=== PATIENT | male | born 1955 | race Caucasian/White ===

== ENCOUNTER 2019-12-12 08:24 | Outpatient (CLI) | payer MEDICARE, SELFPAY ==
--- NOTE | ~2019-12-12 | CT_ITS ---
EXAMINATION: CT abdomen pelvis wo/w con DATE: 12/12/2019 09:18 INDICATION: Renal mass TECHNIQUE: Computed tomography (CT) of the abdomen was performed without intravenous contrast. CT of the abdomen and pelvis was then performed with a total of 100 mL Omnipaque 350 intravenous contrast. The dose-length product (DLP) was 2397.01 mGy-cm. Automated exposure control and iterative reconstruc tion technique were employed. COMPARISON: None FINDINGS: There are patchy opacities of the visualized lung bases. No pleural effusion is identified. The heart size is normal. The liver, spleen, pancreas, gallbladder, and adrenal glands are normal. A 7 mm low-attenuation lesion of the right mid kidney is too small to characterize but likely represen ts a cyst. No definite suspicious renal or urothelial lesion is identified. There is no hydroureteron ephrosis or hydroureter. No urolithiasis is noted. No pathologically enlarged abdominal or pelvic lym ph nodes are identified. Colonic diverticulosis is present without evidence of diverticulitis. There is no free intraperitoneal gas or evidence of bowel obstruction. There are surgical changes of right hemicolectomy. There are bilateral inguinal hernias containing fat. There is mild lumbar spondylosis. IMPRESSION: 1. No definite suspicious renal or urothelial lesion identified. 7 mm lesion of the right kidney is t oo small to characterize but likely represents a cyst. Reviewed, dictated and finalized at location A. IMPRESSION: 1. No definite suspicious renal or urothelial lesion identified. 7 mm lesion of the right kidney is too small to characterize but likely represents a cyst.
--- NOTE | ~2019-12-12 | XR_ITS ---
EXAMINATION: XR abdomen/kub 1V INDICATION: Renal mass TECHNIQUE: Supine views of the abdomen were obtained on 2 radiographs. COMPARISON: 03/01/2017 FINDINGS: The bowel gas pattern is normal. There is a moderate volume of colonic stool. Phleboliths a re noted in the pelvis. There is moderate bilateral hip osteoarthritis. No urolithiasis is identified . There are airspace opacities of the visualized lung bases. IMPRESSION: 1. Unremarkable abdominal radiographs. 2. Airspace opacities of the visualized lung bases, likely infectious or inflammatory. Reviewed, dictated and finalized at location A. IMPRESSION: 1. Unremarkable abdominal radiographs. 2. Airspace opacities of the visualized lung bases, likely infectious or inflam matory.
[2019-12-12 09:02] LABS: Estimated Glomerular Filt Rate > 60
== END 2019-12-12 08:25 | disposition home or self-care (01) ==
LOC: ANHIMG 08:32
PROVIDERS: PCP Internal Medicine; Visit Provider Urology
DX: N28.89 Other specified disorders of kidney and ureter (principal)
CPT/HCPCS: 74018; 74178; Q9967

== ENCOUNTER 2020-01-31 13:04 | Outpatient (CLI) | payer MEDICARE, SELFPAY ==
--- NOTE | ~2020-01-31 | US_ITS ---
EXAMINATION: US FNA w image guidance DATE: 01/31/2020 14:06 INDICATION: Nontoxic goiter TECHNIQUE: A time-out was performed to verify the patient's name, date of , and procedure to be performed . The procedure and its benefits and risks were discussed with the patient. Risks specifically discus sed included bleeding and infection. The patient understood the risks and agreed to proceed. The neck was prepped and draped in the usual sterile manner. 3 mL 1% lidocaine was used for local anesthesia . 6 passes were made with a 25G needle into the lesion. Appropriate needle location was documented with continuous sonographic guidance. The specimens were passed to the cytotechnologist/histotechnologist in the room. A sterile bandage was applied. There were no immediate complications. FINDINGS: Grayscale ultrasound images demonstrate a 2.8 x 1.7 by at least 2.7 cm hypoechoic mass in the mid to inferior right thyroid lobe. The caudal margin of the mass extends inferiorly into the superior media stinum is obscured by the right clavicle. Subsequent images demonstrate biopsy needle advanced into t he mass. IMPRESSION: 1. Successful ultrasound-guided fine needle aspiration of an at least 2.8 x 1.7 x 2.7 cm. TI RADS 4 right thyroid mass. Reviewed, dictated and finalized at location A. IMPRESSION: 1. Successful ultrasound-guided fine needle aspiration of an at least 2.8 x 1. 7 x 2.7 cm. TI RADS 4 right thyroid mass.
== END 2020-01-31 13:05 | disposition home or self-care (01) ==
PROVIDERS: PCP Internal Medicine; Visit Provider Internal Medicine
DX: E04.9 Nontoxic goiter, unspecified (principal)
CPT/HCPCS: 10005; 88173; 88305

== ENCOUNTER 2021-11-24 00:54 | Day surgery (SDC) | payer MEDICARE, SELFPAY ==
[2021-11-11 14:25] VITALS: BMI 42.1
--- NOTE | 2021-11-11 14:38 | PC.NURSE ---
Pt instructed not to take magnesium citrate as part of his colon prep. He verbalized understanding.
[2021-11-24 12:00] VITALS: BP 132/67; PULSE 50; RESP 18; TEMP 36.2; O2SAT 99; BMI 42.0
--- NOTE | 2021-11-24 12:13 | PM.HPGS ---
History of Present Illness History of Present Illness Consent: Risks, benefits, and alternatives have been discussed and questions answered. Patient agrees to proceed with procedure. Chief complaint: history of colon polyps Narrative: Julio Cesar Sterling is a 66 year old male Referred for colon cancer screening. He had a large polyp identified in his colon 5 years ago and subsequently underwent right colectomy because of the large polyp. Review of Systems Review of Systems: All systems reviewed & are unremarkable except as noted in HPI and below PMFSH Past Medical History Medical History Asthma Hyperlipidemia JOCELYNE (obstructive sleep apnea) Social History Social History Smoking status: Never smoker Tobacco type: cigarettes Alcohol intake: former Substance use type: does not use Living arrangements: with family Spiritual care concerns: No Meds Home Medications and Allergies Home Medications Medication Instructions Recorded Confirmed Type albuterol sulfate 90 mcg/actuation 2 inh inhalation Q4-6H PRN 11/11/21 11/11/21 History aerosol inhaler Shortness Of Breath metformin 500 mg tablet 500 mg PO DAILY 11/11/21 11/11/21 History rosuvastatin 5 mg tablet 5 mg PO DAILY 11/11/21 11/11/21 History sertraline 100 mg tablet 100 mg PO DAILY 11/11/21 11/11/21 History Allergies Allergy/AdvReac Type Severity Reaction Status Date / Time No Known Allergies Allergy Severe NONE Verified 11/24/21 12:13 Exam Const: General: alert Orientation/consciousness: patient oriented x3 Resp: Auscultation: clear to auscultation bilaterally Cardio: Rhythm: regular rhythm GI: GI Palp: Yes Soft to palpation and No Tenderness to palpation present (GI) Neuro: General: patient oriented x3 Assessment and Plan Assessment and plan (1) Colon cancer screening: Code(s): Z12.11 - Encounter for screening for malignant neoplasm of colon Status: Acute Assessment and Plan: Colonoscopy with possible biopsy or polypectomy or cautery or injection of substances.
--- NOTE | 2021-11-24 12:17 | WPDANESEPPF ---
Anes - Initial Pre Proc Eval Procedure: Operation Date: 11/24/21 13:30 Proposed Procedures p Screening Colonoscopy - Santos Russo MD Date/Time: 11/24/21 12:17 Surgeon: Santos Russo MD Pre Op Diagnosis: history of colon polyps Patient Data Age: 66 Gender: M Height: 1.7 m Weight: 121.7 kg Last Vital Signs Temp 36.2 C L 11/24/21 12:00 Pulse 50 L 11/24/21 12:00 Resp 18 11/24/21 12:00 BP 132/67 11/24/21 12:00 Pulse Ox 99 11/24/21 12:00 O2 Del Method Room Air 11/24/21 12:00 Allergies Allergy/AdvReac Type Severity Reaction Status Date / Time No Known Allergies Allergy Severe NONE Verified 11/24/21 12:13 Home Medications Medication Instructions Recorded Confirmed Type albuterol sulfate 90 mcg/actuation 2 inh inhalation Q4-6H PRN 11/11/21 11/24/21 History aerosol inhaler Shortness Of Breath metformin 500 mg tablet 500 mg PO DAILY 11/11/21 11/24/21 History rosuvastatin 5 mg tablet 5 mg PO DAILY 11/11/21 11/24/21 History sertraline 100 mg tablet 100 mg PO DAILY 11/11/21 11/24/21 History Patient hx anesthesia problems: none Family hx anesthesia problems: none Results Review: All pre-operative results and documents have been reviewed as part of the pre-operative evaluation. [facility], [facility] Past Medical History Medical History (Updated 11/24/21 @ 12:18 by Hiren Painter DO) Asthma Hyperlipidemia JOCELYNE (obstructive sleep apnea) Social History Social History Smoking status: Never smoker Tobacco type: cigarettes Alcohol intake: former Substance use type: does not use Living arrangements: with family Spiritual care concerns: No Anes - Eval Final PreProcedure Day of Procedure 11/24/21 12:17 Patient weight: morbidly obese Heart: regular rate and rhythm Lungs: clear to auscultation Airway: Mallampati scale class II Neurological: alert and oriented Last oral intake: >/= 8 hours ASA classification: III Emergent: no Anesthetic plan: proceed Anesthesia type and monitoring: general GIVS and standard monitoring Results Review: All pre-operative results and documents have been reviewed as part of the pre-operative evaluation. Informed Consent: The patient's anesthetic plan and its attendant risks and benefits were discussed with the patient/family/POA. Questions were solicited and answers provided to the satisfaction of the patient/family/POA.
[2021-11-24] MEDS: LACTATED RINGERS 1,000 ML 150 ML IV CONT (12:28)
[2021-11-24 12:30] LABS: Glucose Point of Care 104 mg/dl (65-105)
[2021-11-24 12:43] VITALS: BP 84/38; PULSE 54; RESP 20; O2SAT 98
[2021-11-24 12:53] VITALS: BP 84/32; PULSE 50; RESP 19; O2SAT 98
[2021-11-24 13:03] VITALS: BP 111/45; PULSE 54; RESP 20; O2SAT 100
== END 2021-11-24 13:10 | disposition home or self-care (01) ==
PROVIDERS: PCP Internal Medicine; Visit Provider Internal Medicine Gastroenterology
PROC: 0DJD8ZZ Inspection of Lower Intestinal Tract, Via Natural or Artificial Opening Endoscopic (ICD-10-PCS; CPT 45378; principal; 2021-11-24 13:30)
DX: Z12.11 Encounter for screening for malignant neoplasm of colon (principal); K57.30 Diverticulosis of large intestine without perforation or abscess without bleeding; Z98.0 Intestinal bypass and anastomosis status; Z86.010 Personal history of colon polyps; Z90.49 Acquired absence of other specified parts of digestive tract; E78.5 Hyperlipidemia, unspecified; J45.909 Unspecified asthma, uncomplicated; G47.33 Obstructive sleep apnea (adult) (pediatric); Z79.84 Long term (current) use of oral hypoglycemic drugs; Z79.51 Long term (current) use of inhaled steroids; E66.01 Morbid (severe) obesity due to excess calories; Z68.41 Body mass index [BMI] 40.0-44.9, adult
CPT/HCPCS: G0105; 82948; J2704; J7120

== ENCOUNTER 2024-05-11 01:05 | Day surgery (SDC) | payer MEDICARE, SELFPAY ==
[2024-05-03 14:22] VITALS: BMI 44.8
--- OUTSIDE RECORDS SUMMARY | 2024-05-11 01:08 | XMS_ITS | Data Portability ---
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 Name Role Phone JENNIFER PEREZ Primary Care Provider JENNIFER PEREZ Referring Provider Assessment Encounter Date Assessment Date Assessment LastModified by Organization Details LastModified Time 06/29/2022 06/29/2022 Follow-up 3 months could Not available 06/29/2022 20:50:01 08/10/2022 08/10/2022 Assessment: Very severe OSAHS, AHI = 47 Iron deficiency Vit B12 deficiency Vit E deficiency Plan: The following were reviewed and explained to the patient: primary care/referral note [facility] split night sleep study 11/19/20 AHI = 47, [employer] medium Vitera full face mask @ 13 cmH2O, PLMI = 24 Ferritin 10/15/21 38 ng/mL Ferritin 08/05/22 39 ng/mL B12 10/15/21 380 pg/mL B12 08/05/22 446 pg/mL Alpha tocopherol 10/15/21 5.4 mg/L Alpha tocopherol 08/05/22 9.5 mg/L Gamma tocopherol 10/15/21 1.5 mg/L Gamma tocopherol 08/05/22 0.7 mg/L Elevation in periodic limb movement index may be contributed by sertraline. Non-pharmacologic therapy options for periodic limb movement disorder include avoidance of aggravating drugs and substances, mental alerting activities, short daily hemodialysis for patients in renal failure, exercise, leg massage, stretching calf muscles, use of a weighted blanket and applied heat. Patient will cut down on alcohol consumption and caffeine intake. BUN, Creatinine, RBC folate, Iron, TIBC, ESR, Magnesium, Hgb and Hct levels are within normal limits. Patient will take Vitamin E 200 IU/day to keep the alpha tocopherol > 9.0 mg/L and the gamma tocopherol > 0.5 mg/L. Patient will continue FeSO4 325 mg + Vit C 500 mg daily to keep the ferritin > 75 ng/ml. Patient will continue B12 1 mg daily to keep the levels > 400 pg/ml. Patient will continue Vitamin E 200 IU/day to keep the alpha tocopherol > 7.0 mg/L and the gamma tocopherol > 0.5 mg/L. Check vitamin E, B12 and ferritin one week before return. We will hold off on dopaminergic therapy for now. PAP compliance downloaded and interpreted x 20 minutes. Data reviewed and explained to the patient. Average apnea/hypopnea index (AHI) is 2.0. Patient used PAP > 4 hours 100% of the time. PAP is set at 13 cmH2O. PAP will remain at 13 cmH2O. Oxygen supplementation: none Patient is benefiting from PAP therapy. Encouraged patient to maintain PAP use more than 70% of the time. Statement of PAP use and benefits will be sent to the home care store. Educated the patient on problems and solutions associated with positive airway pressure (PAP) use. Difficulty tolerating pressure, mask leaks, intolerance of interface, nasal congestion, claustrophobic response, dry mouth, and unintentional mask removal during sleep were covered. Provided the patient with a list of local home care stores where positive airway pressure (PAP) units, accouterments, and services are available. Home care store selection is based on patient's insurance carrier. Patient will setup an appointment with [facility] for supplies and pressure adjustments. A major predictor of success with use of PAP is follow-up with both the respiratory supplier and the treating physician. To help assess adherence, a downloadable card/chip is ordered with the PAP equipment. The card/chip will be downloaded by the respiratory supplier and sent to the treating physician. The download results can show the treating physician information about adherence to treatment, residual AHI while on treatment and presence of large mask leakage. This information is especially helpful if the patient has residual sleepiness despite treatment. General information on sleep disorder breathing, evaluation of sleep disordered breathing, treatment with PAP therapy, and living with PAP therapy were covered. We discussed with the patient the impact of weight on: Sleep disordered breathing Mixed hyperlipidemia DM Low back pain We discussed with the patient the benefit of PAP therapy on: Sleep disordered breathing Mood disorder Rhinitis DM Educated the patient on sleep hygiene measures. Relaxing rituals to rest easy, understanding foods with positive and negative impact on sleep, creating a peaceful sleep environment, timing of exercise, using herbal sleep aids, and practicing sleep-friendly meditation were covered. To determine how much sleep is needed, the patient will assess where he falls on the spectrum, examine what lifestyle factors such as work schedules and stress are affecting the quality and quantity of sleep. In general, adults need 7-9 hours of sleep. Educated the patient regarding foods that promote sleep. These include but are not limited to cherries, bananas, toast, oatmeal, and warm milk. Educated the patient regarding foods and drinks to avoid before bedtime. These include but are not limited to aged cheese, chocolate, spicy foods, tomato-based sauces, soy, ginseng tea and processed meat. Advocated influenza vaccination annually and pneumonia vaccination OTIS. Advocated weight loss through diet and exercise. Patient's ideal body weight according to height and gender is up to 160 lbs. Encouraged patient to adjust caloric intake to maintain/achieve ideal body weight, emphasizing on fruits, vegetables, whole grains, and fat-free or low-fat products. These include lean meats, poultry, fish, beans, eggs, and nuts and foods that are low in saturated fats, trans-fats, cholesterol, salt (sodium), and glycemic index. Stressed the importance of regular exercise up to the patient's capacity limits. In this case, we recommend 20 min daily walking, 2 days a week of resistance training. Patient to monitor BP daily and bring records to PCP for further management. Follow-up: 6 months, February 2023 [email or web address] Not available 08/10/2022 17:29:25 10/05/2022 10/05/2022 Wellness concluded screenings and immunizations orders were patient Blood work ordered Weight reduction Follow-up 4 months Not available 10/06/2022 08:36:33 02/01/2023 02/01/2023 Continue current therapy follow-up 4 months blood work ordered Not available 02/01/2023 20:57:39 02/23/2023 02/23/2023 Assessment: Very severe OSAHS, AHI = 47 Iron deficiency Vit B12 deficiency Vit E deficiency Plan: The following were reviewed and explained to the patient: [facility] split night sleep study 11/19/20 AHI = 47, [employer] medium Vitera full face mask @ 13 cmH2O, PLMI = 24 Ferritin 10/15/21 38 ng/mL Ferritin 08/05/22 39 ng/mL Ferritin 02/11/23 55 ng/mL B12 10/15/21 380 pg/mL B12 08/05/22 446 pg/mL B12 02/11/23 440 pg/mL Alpha tocopherol 10/15/21 5.4 mg/L Alpha tocopherol 08/05/22 9.5 mg/L Alpha tocopherol 02/11/23 6.1 mg/L Gamma tocopherol 10/15/21 1.5 mg/L Gamma tocopherol 08/05/22 0.7 mg/L Gamma tocopherol 02/11/23 0.9 mg/L Elevation in periodic limb movement index may be contributed by sertraline. Non-pharmacologic therapy options for periodic limb movement disorder include avoidance of aggravating drugs and substances, mental alerting activities, short daily hemodialysis for patients in renal failure, exercise, leg massage, stretching calf muscles, use of a weighted blanket and applied heat. Patient will cut down on alcohol consumption and caffeine intake. BUN, Creatinine, RBC folate, Iron, TIBC, ESR, Magnesium, Hgb and Hct levels are within normal limits. Patient will continue Vitamin E 200 IU/day to keep the alpha tocopherol > 9.0 mg/L and the gamma tocopherol > 0.5 mg/L. Patient will continue FeSO4 325 mg + Vit C 500 mg daily to keep the ferritin > 75 ng/ml. Patient will continue B12 1 mg daily to keep the levels > 400 pg/ml. Patient will continue Vitamin E 200 IU/day to keep the alpha tocopherol > 7.0 mg/L and the gamma tocopherol > 0.5 mg/L. Check vitamin E, B12 and ferritin one week before return. We will hold off on dopaminergic therapy for now. PAP compliance downloaded and interpreted x 20 minutes. Data reviewed and explained to the patient. Average apnea/hypopnea index (AHI) is 2.2. Patient used PAP > 4 hours 98% of the time. PAP is set at 13 cmH2O. PAP will remain at 13 cmH2O. Oxygen supplementation: none Patient is benefiting from PAP therapy. Encouraged patient to maintain PAP use more than 70% of the time. Statement of PAP use and benefits will be sent to the home care store. Educated the patient on problems and solutions associated with positive airway pressure (PAP) use. Difficulty tolerating pressure, mask leaks, intolerance of interface, nasal congestion, claustrophobic response, dry mouth, and unintentional mask removal during sleep were covered. Provided the patient with a list of local home care stores where positive airway pressure (PAP) units, accouterments, and services are available. Home care store selection is based on patient's insurance carrier. Patient will setup an appointment with [facility] for supplies and pressure adjustments. A major predictor of success with use of PAP is follow-up with both the respiratory supplier and the treating physician. To help assess adherence, a downloadable card/chip is ordered with the PAP equipment. The card/chip will be downloaded by the respiratory supplier and sent to the treating physician. The download results can show the treating physician information about adherence to treatment, residual AHI while on treatment and presence of large mask leakage. This information is especially helpful if the patient has residual sleepiness despite treatment. General information on sleep disorder breathing, evaluation of sleep disordered breathing, treatment with PAP therapy, and living with PAP therapy were covered. We discussed with the patient the impact of weight on: Sleep disordered breathing Mixed hyperlipidemia DM Low back pain We discussed with the patient the benefit of PAP therapy on: Sleep disordered breathing Mood disorder Rhinitis DM Educated the patient on sleep hygiene measures. Relaxing rituals to rest easy, understanding foods with positive and negative impact on sleep, creating a peaceful sleep environment, timing of exercise, using herbal sleep aids, and practicing sleep-friendly meditation were covered. To determine how much sleep is needed, the patient will assess where he falls on the spectrum, examine what lifestyle factors such as work schedules and stress are affecting the quality and quantity of sleep. In general, adults need 7-9 hours of sleep. Educated the patient regarding foods that promote sleep. These include but are not limited to cherries, bananas, toast, oatmeal, and warm milk. Educated the patient regarding foods and drinks to avoid before bedtime. These include but are not limited to aged cheese, chocolate, spicy foods, tomato-based sauces, soy, ginseng tea and processed meat. Advocated influenza vaccination annually and pneumonia vaccination OTIS. Advocated weight loss through diet and exercise. Patient's ideal body weight according to height and gender is up to 160 lbs. Encouraged patient to adjust caloric intake to maintain/achieve ideal body weight, emphasizing on fruits, vegetables, whole grains, and fat-free or low-fat products. These include lean meats, poultry, fish, beans, eggs, and nuts and foods that are low in saturated fats, trans-fats, cholesterol, salt (sodium), and glycemic index. Stressed the importance of regular exercise up to the patient's capacity limits. In this case, we recommend 20 min daily walking, 2 days a week of resistance training. Patient to monitor BP daily and bring records to PCP for further management. Follow-up: 6 months, August 2023 [facility] Not available 02/23/2023 15:22:34 Plan of Treatment Reminders Order Date Submit Date Provider Last Modified By Organization Details Last Modified Time Details Appointments None recorded. Lab vitamin B12, serum [address] (Lab), [address] [place], [address], 12:54:44 ferritin, serum or plasma [address] (Lab), [address] [place], [address], 12:54:44 vitamin E, serum [address] (Lab), [address] [place], [address], 12:54:44 CMP, serum or plasma 2022 023 [facility] (Lab), [address] [place], [address], 19:06:51 lipid panel, serum 2022 023 [facility] (Lab), [address] [place], [address], 19:06:58 glycohemogl obin, total, blood 2022 023 [facility] (Lab), [address] [place], [address], 3 19:48:41 vitamin B12, serum 2022 024 [email or web address] 25 [facility] (Lab), [address] [place], [address], 4 14:27:05 ferritin, serum or plasma 2022 024 [email or web address] 25 [facility] (Lab), [address] [place], [address], 4 14:27:05 vitamin E, serum 2022 024 [email or web address] 25 [facility] (Lab), [address] [place], [address], 4 14:27:05 Referral None recorded. Procedures None recorded. Surgeries None recorded. Imaging None recorded. Medication Orders cyanocobala min (vit B-12) 1,000 mcg tablet 2022 023 [facility] #[id number], [address], [place], [place], [id number], 3 12:09:14 ferrous sulfate 325 mg (65 mg iron) tablet 2022 023 [facility] #[id number], [address], [place], [place], [id number], 3 12:09:17 Vitamin C 500 mg tablet 2022 023 [facility] #[id number], [address], [place], [place], [id number], 3 12:09:15 vitamin E mixed 200 unit tablet 2022 023 [facility] #[id number], [address], [place], [place], [id number], 3 12:09:13 cyanocobala min (vit B-12) 1,000 mcg tablet 2022 023 [email or web address] [facility] #[id number], [address], [place], [place], [id number], 3 15:18:29 ferrous sulfate 325 mg (65 mg iron) tablet 2022 023 [facility] #18489, [address], [place], [place], [id number], 3 15:18:23 Vitamin C 500 mg tablet 2022 023 [facility] #61879, [address], [place], [place], [id number], 3 15:18:27 vitamin E 200 unit capsule 2022 023 [facility] #[id number], [address], [place], [place], [id number], 3 15:18:27 Patient TargetsNo targets recorded. Patient Instructions Encounter Date Encounter Id Patient Instructions Last Modified By Organization Details Last Modified Time 10/05/2022 [id number] dementia rating scale-2* [email or web address] Not available 10/06/2022 08:36:54 alcohol misuse* [email or web address] Not available 10/06/2022 08:36:54 depression screening* [email or web address] Not available 10/06/2022 08:36:53 multi-dimensiona l health assessment questionnaire* [email or web address] Not available 10/06/2022 08:36:54 advance care planning: care instructions Not available 10/06/2022 08:36:53 advance directiv es: care instructions [email or web address] Not available 10/06/2022 08:36:54 [place] Advance Directives [email or web address] Not available 10/06/2022 08:36:54 Personalized Hea lt Plan and Screening Recommendations Advance Directives - Do you have one? Advance Directives - Do we have your advance directive on file in your health record? Primary Prevention/Interven tion (prevents or decreases the chance of common diseases from occurring) Smoking Risk: Non Smoker Alcohol Misuse Screening: Negative Weight: Appropriate Overwei ght continue your current weight loss efforts try to lose 5% of your body weight try to lose 10% of your body weight Physical activity: Nutrition: Good Average Fall Risk (screened today): Low Vaccines Pneumococcal: Ordered Recommended today Influenza: Chronic Disease Risks Stroke: Low Risk Intermediate Risk I have no recommendations Act nimisha diagnosis, Continue current treatment plan Heart Attack: Low risk Intermediate Risk I have no recommendations Act nimisha diagnosis, Continue current treatment plan Clogging of the Arteries: Low risk Intermediate Risk I have no recommendations Act nimisha diagnosis, Continue current treatment plan Diabetes: Low Risk Intermediate Risk Secondary Prevention/Interven tion (detects treatable diseases before they may cause symptoms, disability, or ) Prostate Cancer Screening: Colon Cancer Screening: Colonoscopy Date Screening Last Performed: _2021 Eye Disease Screening: Dementia Risk: Low I have no recommendations Depression Screening: Negative Not available 10/05/2022 14:48:13 Reason for Referral None Reported. Results Created Date Observation Date Name Description Value Unit Range Abnormal Flag Note LastModifiedBy Organization Detail LastModifiedTime 10/06/1910/05/2022 CBC/C OMPLE TE BLD COUNT W/DIF F white blood cells 3.9 x10'3 /uL 4.2-10 .8 low Not Available [facility] (Lab) [address] [place], [address], 10/05/2022 18:35:59 10/06/1910/05/2022 CBC/C OMPLE TE BLD COUNT W/DIF F red blood cells 4.40 x10'6 /uL 4.10-5 .80 Not Available [facility] (Lab) [address] [place], [address], 10/05/2022 18:35:59 10/06/19 23 10/05/2022 CBC/C OMPLE TE BLD COUNT W/DIF F hemoglobin 14.5 g/dL 13.2-1 7.0 Not Available [facility] (Lab) [address] [place], [address], 10/05/2022 18:35:59 10/06/19 23 10/05/2022 CBC/C OMPLE TE BLD COUNT W/DIF F hematocrit 44.3 % 39.3-5 0.0 Not Available [facility] (Lab) [address] [place], [address], 10/05/2022 18:35:59 10/06/19 23 10/05/2022 CBC/C OMPLE TE BLD COUNT W/DIF F mean red cell volume 100.7 fL 80.0-9 7.0 high Not Available [facility] (Lab) [address] [place], [address], 10/05/2022 18:35:59 10/06/19 23 10/05/2022 CBC/C OMPLE TE BLD COUNT W/DIF F mean red cell hemoglobin 33.0 pg 27.0-3 3.0 Not Available [facility] (Lab) [address] [place], [address], 10/05/2022 18:35:59 10/06/19 23 10/05/2022 CBC/C OMPLE TE BLD COUNT W/DIF F mean RBC HGB concentratio n 32.7 g/dL 31.0-3 6.0 Not Available [facility] (Lab) [address] [place], [address], 10/05/2022 18:35:59 10/06/19 23 10/05/2022 CBC/C OMPLE TE BLD COUNT W/DIF F red cell distribution width 12.4 % 11.8-1 5.5 Not Available [facility] (Lab) [address] [place], [address], 10/05/2022 18:35:59 10/06/19 23 10/05/2022 CBC/C OMPLE TE BLD COUNT W/DIF F platelets 185 x10'3 /uL 150-40 0 Not Available [facility] (Lab) [address] [place], [address], 10/05/2022 18:35:59 10/06/19 23 10/05/2022 CBC/C OMPLE TE BLD COUNT W/DIF F mean platelet volume 10.2 fL 9.0-12 .4 Not Available [facility] (Lab) [address] [place], [address], 10/05/2022 18:35:59 10/06/19 23 10/05/2022 CBC/C OMPLE TE BLD COUNT W/DIF F neutrophils 67.9 % 39.0-7 2.0 Not Available [facility] (Lab) [address] [place], [address], 10/05/2022 18:35:59 10/06/19 23 10/05/2022 CBC/C OMPLE TE BLD COUNT W/DIF F lymphocytes 22.2 % 16.0-4 7.0 Not Available [facility] (Lab) [address] [place], [address], 10/05/2022 18:35:59 10/06/19 23 10/05/2022 CBC/C OMPLE TE BLD COUNT W/DIF F monocytes 7.5 % 5.0-12 .0 Not Available [facility] (Lab) [address] [place], [address], 10/05/2022 18:35:59 10/06/1910/05/2022 CBC/C OMPLE TE BLD COUNT W/DIF F eosinophils 1.6 % 1.0-7. 0 Not Available [facility] (Lab) [address] [place], [address], 10/05/2022 18:35:59 10/06/19 23 10/05/2022 CBC/C OMPLE TE BLD COUNT W/DIF F basophils 0.5 % 0.0-2. 0 Not Available [facility] (Lab) [address] [place], [address], 10/05/2022 18:35:59 10/06/19 23 10/05/2022 CBC/C OMPLE TE BLD COUNT W/DIF F immature granulocytes 0.3 % 0.00-0 .50 Not Available [facility] (Lab) [address] [place], [address], 10/05/2022 18:35:59 10/06/19 23 10/05/2022 CBC/C OMPLE TE BLD COUNT W/DIF F neutrophils, absolute count 2.63 x10'3 /uL 1.5-8. 0 Not Available [facility] (Lab) [address] [place], [address], 10/05/2022 18:35:59 10/06/19 23 10/05/2022 CBC/C OMPLE TE BLD COUNT W/DIF F lymphocytes, absolute count 0.86 x10'3 /uL 1.07-3 .43 low Not Available [facility] (Lab) [address] [place], [address], 10/05/2022 18:35:59 10/06/1910/05/2022 CBC/C OMPLE TE BLD COUNT W/DIF F monocytes, absolute count 0.29 x10'3 /uL 0.29-0 .99 Not Available [facility] (Lab) [address] [place], [address], 10/05/2022 18:35:59 10/06/19 23 10/05/2022 CBC/C OMPLE TE BLD COUNT W/DIF F eosinophils, absolute count 0.06 x10'3 /uL 0.02-0 .53 Not Available [facility] (Lab) [address] [place], [address], 10/05/2022 18:35:59 10/06/19 23 10/05/2022 CBC/C OMPLE TE BLD COUNT W/DIF F basophils, absolute count 0.02 x10'3 /uL 0.01-0 .08 Not Available [facility] (Lab) [address] [place], [address], 10/05/2022 18:35:59 10/06/19 23 10/05/2022 CBC/C OMPLE TE BLD COUNT W/DIF F immature granulocytes ,absolute 0.01 x10'3 /uL 0.00-0 .05 Not Available [facility] (Lab) [address] [place], [address], 10/05/2022 18:35:59 10/06/19 23 10/05/2022 CBC/C OMPLE TE BLD COUNT W/DIF F nucleated red blood cells 0.0 % -0 Not Available [facility] (Lab) [address] [place], [address], 10/05/2022 18:35:59 10/06/19 23 10/05/2022 CBC/C OMPLE TE BLD COUNT W/DIF F NRBC# 0.00 x10'3 /uL Not Available [facility] (Lab) [address] [place], [address], 10/05/2022 18:35:59 10/06/19 23 10/05/2022 COMPR EHENS NIMISHA METAB OLIC PANEL sodium 144 mmol/ L 137-14 5 Not Available [facility] (Lab) [address] [place], [address], 10/05/2022 18:43:28 10/06/19 23 10/05/2022 COMPR EHENS NIMISHA METAB OLIC PANEL potassium 4.1 mmol/ L 3.5-5. 1 Not Available [facility] (Lab) [address] [place], [address], 10/05/2022 18:43:28 10/06/19 23 10/05/2022 COMPR EHENS NIMISHA METAB OLIC PANEL chloride 107 mmol/ L 98-107 Not Available [facility] (Lab) [address] [place], [address], 10/05/2022 18:43:28 10/06/19 23 10/05/2022 COMPR EHENS NIMISHA METAB OLIC PANEL carbon dioxide 27 mmol/ L 22-30 Not Available [facility] (Lab) [address] [place], [address], 10/05/2022 18:43:28 10/06/19 23 10/05/2022 COMPR EHENS NIMISHA METAB OLIC PANEL anion gap 14.1 mmol/ L 14-22 Not Available [facility] (Lab) [address] [place], [address], 10/05/2022 18:43:28 10/06/19 23 10/05/2022 COMPR EHENS NIMISHA METAB OLIC PANEL glucose 132 mg/dL 70-99 high Not Available [facility] (Lab) [address] [place], [address], 10/05/2022 18:43:28 10/06/19 23 10/05/2022 COMPR EHENS NIMISHA METAB OLIC PANEL BUN 13 mg/dL 8-19 Not Available [facility] (Lab) [address] [place], [address], 10/05/2022 18:43:28 10/06/19 23 10/05/2022 COMPR EHENS NIMISHA METAB OLIC PANEL creatinine 0.60 mg/dL 0.66-1 .25 low Not Available [facility] (Lab) [address] [place], [address], 10/05/2022 18:43:28 10/06/19 23 10/05/2022 COMPR EHENS NIMISHA METAB OLIC PANEL GFR >60 Refer ence Range : [place] ge GFR Healt hy Adult : >60 mL/mi n/1.7 3 m2 Chron ic Kidne y Disea se: 15-60 mL/mi n/1.7 3 m2 Kidne y Failu re: <15/m L/min /1.73 m2 www.n iddk. [facility].g ov The MDRD study equat ion has not been valid ated in child robina <18 years of age; pregn ant women ; the elder ly >85 years of age; or in some racia l or ethni c subgr oups, such as Hispa nics. Outsi de the valid ated chalino eters , estim ated GFR is less accur ate, requi ring clini arjun judgm ent on a case- by-ca se basis . Clini arjun inter preta tion for other races and ages must be made by the clini conner. The MDRD study equat ion has not been valid ated for the evalu ation of serum creat inine relat ed to nutri steph l statu s or medic ation usage . For perso ns <18 years of age, a pedia tric GFR calcu lator is avail able on the [facility] websi te: https :[email or web address] [email or web address].agustin [email or web address] larissa/pr tyreeess ional s/kdo qi/gf r_cal culat or Not Available [facility] (Lab) [address] [place], [address], 10/05/2022 18:43:28 10/06/1910/05/2022 COMPR EHENS NIMISHA METAB OLIC PANEL alkaline phosphatase 70 U/L 38-126 Not Available [facility] (Lab) [address] [place], [address], 10/05/2022 18:43:28 10/06/1910/05/2022 COMPR EHENS NIMISHA METAB OLIC PANEL alanine aminotransfe rase 27 U/L 0-50 Not Available [facility] (Lab) [address] [place], [address], 10/05/2022 18:43:28 10/06/19 23 10/05/2022 COMPR EHENS NIIMSHA METAB OLIC PANEL aspartate aminotransfe rase 30 U/L 15-46 Not Available [facility] (Lab) [address] [place], [address], 10/05/2022 18:43:28 10/06/19 23 10/05/2022 COMPR EHENS NIMISHA METAB OLIC PANEL bilirubin, total 0.50 mg/dL 0.20-1 .30 Not Available [facility] (Lab) [address] [place], [address], 10/05/2022 18:43:28 10/06/19 23 10/05/2022 COMPR EHENS NIMISHA METAB OLIC PANEL calcium 8.9 mg/dL 8.4-10 .2 Not Available [facility] (Lab) [address] [place], [address], 10/05/2022 18:43:28 10/06/19 23 10/05/2022 COMPR EHENS NIMISHA METAB OLIC PANEL total protein 6.1 g/dL 6.3-8. 2 low Not Available [facility] (Lab) [address] [place], [address], 10/05/2022 18:43:28 10/06/19 23 10/05/2022 COMPR EHENS NIMISHA METAB OLIC PANEL albumin 3.3 g/dL 3.0-4. 4 Not Available [facility] (Lab) [address] [place], [address], 10/05/2022 18:43:28 10/06/19 23 10/05/2022 COMPR EHENS NIMISHA METAB OLIC PANEL globulin 2.8 g/dL 2.6-4. 2 Not Available [facility] (Lab) [address] [place], [address], 10/05/2022 18:43:28 10/06/19 23 10/05/2022 COMPR EHENS NIMISHA METAB OLIC PANEL A/G ratio 1.2 ratio 1.0-2. 0 Not Available [facility] (Lab) [address] [place], [address], 10/05/2022 18:43:28 10/06/19 23 10/05/2022 PSA SCREE N PSA medicare screen 1.16 NG/mL 0.00-4 .00 Not Available [facility] (Lab) [address] [place], [address], 10/05/2022 19:05:30 10/06/19 23 10/05/2022 BNP/B -NATR IURET IC PEPTI DE BNP 130 pg/mL 4-125 high Not Available [facility] (Lab) [address] [place], [address], 10/05/2022 19:07:26 10/06/19 23 10/05/2022 HEMOG LOBIN A1C HA1C 6.1 % 4.0-6. 0 high Diabe nghia Scree paul Crite gloria: <5.7% Consi stent with absen ce of diabe nghia 5.7-6 .4% Consi stent with incre ased risk for diabe nghia (pred iabet es) >OR=6 .5% Consi stent with diabe nghia REFER ENCE: Diabe nghia Care 2016, 39(Tomas ppl.1 ):s13 -s22 Not Available [facility] (Lab) [address] [place], [address], 10/05/2022 20:04:41 02/03/20 23 02/02/2023 COMPR EHENS NIMISHA METAB OLIC PANEL sodium 140 mmol/ L 137-14 5 Not Available [facility] (Lab) [address] [place], [address], 02/02/2023 19:06:51 1002/02/2023 COMPR EHENS NIMISHA METAB OLIC PANEL potassium 4.1 mmol/ L 3.5-5. 1 Not Available [facility] (Lab) [address] [place], [address], 02/02/2023 19:06:51 02/03/20 23 02/02/2023 COMPR EHENS NIMISHA METAB OLIC PANEL chloride 106 mmol/ L 98-107 Not Available [facility] (Lab) [address] [place], [address], 02/02/2023 19:06:51 02/03/20 23 02/02/2023 COMPR EHENS NIMISHA METAB OLIC PANEL carbon dioxide 31 mmol/ L 22-30 high Not Available [facility] (Lab) [address] [place], [address], 02/02/2023 19:06:51 02/03/20 23 02/02/2023 COMPR EHENS NIMISHA METAB OLIC PANEL anion gap 7.1 mmol/ L 14-22 low Not Available [facility] (Lab) [address] [place], [address], 02/02/2023 19:06:51 02/03/20 23 02/02/2023 COMPR EHENS NIMISHA METAB OLIC PANEL glucose 137 mg/dL 70-99 high Not Available [facility] (Lab) [address] [place], [address], 02/02/2023 19:06:51 02/03/20 23 02/02/2023 COMPR EHENS NIMISHA METAB OLIC PANEL BUN 16 mg/dL 8-19 Not Available [facility] (Lab) [address] [place], [address], 02/02/2023 19:06:51 02/03/20 23 02/02/2023 COMPR EHENS NIMISHA METAB OLIC PANEL creatinine 0.69 mg/dL 0.66-1 .25 Not Available [facility] (Lab) [address] [place], [address], 02/02/2023 19:06:51 02/03/2002/02/2023 COMPR EHENS NIMISHA METAB OLIC PANEL GFR >60 Refer ence Range : [place] ge GFR Healt hy Adult : >60 mL/mi n/1.7 3 m2 Chron ic Kidne y Disea se: 15-60 mL/mi n/1.7 3 m2 Kidne y Failu re: <15/m L/min /1.73 m2 www.n [facility].g ov The MDRD study equat ion has not been valid ated in child robina <18 years of age; pregn ant women ; the elder ly >85 years of age; or in some racia l or ethni c subgr oups, such as Hiskaterina nics. Outsi de the valid ated chalino eters , estim ated GFR is less accur ate, requi ring clini arjun judgm ent on a case- by-ca se basis . Clini arjun inter preta tion for other races and ages must be made by the clini conner. The MDRD study equat ion has not been valid ated for the evalu ation of serum creat inine relat ed to nutri steph l statu s or medic ation usage . For perso ns <18 years of age, a pedia tric GFR calcu lator is avail able on the [facility] websi te: https :[email or web address] w.agustin torres.o rg/pr ofess ional s/kdo qi/gf r_cal culat or Not Available [facility] (Lab) [address] [place], [address], 02/02/2023 19:06:51 02/03/2002/02/2023 COMPR EHENS NIMISHA METAB OLIC PANEL alkaline phosphatase 92 U/L 38-126 Not Available [facility] (Lab) [address] [place], [address], 02/02/2023 19:06:51 02/03/20 23 02/02/2023 COMPR EHENS NIMISHA METAB OLIC PANEL alanine aminotransfe rase 32 U/L 0-50 Not Available [facility] (Lab) [address] [place], [address], 02/02/2023 19:06:51 02/03/2002/02/2023 COMPR EHENS NIMISHA METAB OLIC PANEL aspartate aminotransfe rase 35 U/L 15-46 Not Available [facility] (Lab) [address] [place], [address], 02/02/2023 19:06:51 02/03/20 23 02/02/2023 COMPR EHENS NIMISHA METAB OLIC PANEL bilirubin, total 0.70 mg/dL 0.20-1 .30 Not Available [facility] (Lab) [address] [place], [address], 02/02/2023 19:06:51 02/03/2002/02/2023 COMPR EHENS NIMISHA METAB OLIC PANEL calcium 9.1 mg/dL 8.4-10 .2 Not Available [facility] (Lab) [address] [place], [address], 02/02/2023 19:06:51 02/03/2002/02/2023 COMPR EHENS NIMISHA METAB OLIC PANEL total protein 6.7 g/dL 6.3-8. 2 Not Available [facility] (Lab) [address] [place], [address], 02/02/2023 19:06:51 02/03/20 23 02/02/2023 COMPR EHENS NIMISHA METAB OLIC PANEL albumin 3.8 g/dL 3.0-4. 4 Not Available [facility] (Lab) [address] [place], [address], 02/02/2023 19:06:51 02/03/20 23 02/02/2023 COMPR EHENS NIMISHA METAB OLIC PANEL globulin 2.9 g/dL 2.6-4. 2 Not Available [facility] (Lab) [address] [place], [address], 02/02/2023 19:06:51 02/03/2002/02/2023 COMPR EHENS NIMISHA METAB OLIC PANEL A/G ratio 1.3 ratio 1.0-2. 0 Not Available [facility] (Lab) [address] [place], [address], 02/02/2023 19:06:51 02/03/2002/02/2023 LIPID PANEL cholesterol 116 mg/dL 140-19 9 low NIH CORRY NSUS RECOM MENDA TION FOR APRIL STERO L: ADULT CHILD LOW RISK: <200 <170 BORDE RLINE : <200- 239 ----- HIGH RISK: >240 >200 Not Available [facility] (Lab) [address] [place], [address], 02/02/2023 19:06:57 02/03/2002/02/2023 LIPID PANEL triglyceride s 156 mg/dL 0-150 high NIH CORRY NSUS REPOR T RECOM MENDA TION FOR TRIGL YCERI FE: ADULT CHILD LOW RISK: <150 ----- BODER LINE: 150-1 99 ----- HIGH RISK: >200 ----- Not Available [facility] (Lab) [address] [place], [address], 02/02/2023 19:06:57 02/03/2002/02/2023 LIPID PANEL HDL cholesterol 37 mg/dL 40- low Not Available [facility] (Lab) [address] [place], [address], 02/02/2023 19:06:57 02/03/2002/02/2023 LIPID PANEL LDL cholesterol, calculated 48 mg/dL 0-130 NIH CORRY NSUS REPOR T RECOM MENDA TIONS FOR LDL: ADULT CHILD LOW RISK <130 <110 (OPTI MAL LDL) <100 ----- BORDE RLINE : 130-1 59 ----- HIGH RISK: >160 >130 A TRIGL YCERI DE RESUL T >400 INVAL IDATE S THE CALCU LATIO N FOR LDL FRACT IONAT ION - THE LDL RESUL T WILL NOT BE REPOR BABAR. Not Available [facility] (Lab) [address] [place], [address], 02/02/2023 19:06:57 02/03/2002/02/2023 HEMOG LOBIN A1C HA1C 6.0 % 4.0-6. 0 Diabe nghia Scree paul Crite gloria: <5.7% Consi stent with absen ce of diabe nghia 5.7-6 .4% Consi stent with incre ased risk for diabe nghia (pred iabet es) >OR=6 .5% Consi stent with diabe nghia REFER ENCE: Diabe nghia Care 2016, 39(Tomas ppl.1 ):s13 -s22 Not Available [facility] (Lab) [address] [place], [address], 02/02/2023 19:48:41 07/04/19 23 05/25/2022 XR, chest , 2 view No observ ation record ed. [email or web address] Not Available 06/11 13:38:48 Result Notes None recorded. Problems Name Problem SNOMED Code Status Onset Date Resolution Date Notes Provider Name and Address Organization Details Recorded Time Solitary nodule of lung 124790166 Active 2022 Not Available [facility] 3 21:30:34 Vitamin E deficiency 29462790 Active 2022 Not Available [facility] 3 21:30:34 Iron deficiency 19316184 Active 2022 Not Available [facility] 3 21:30:34 Vitamin B12 deficiency (non anemic) 80771200 Active 2022 Not Available [facility] 3 21:30:34 Obstructive sleep apnea syndrome 88271205 Active 2022 Not Available [facility] 3 21:30:34 Essential hypertension 04732383 Active 2022 Not Available [facility] 3 21:30:34 Irritable bowel syndrome 23683015 Active Not Available [facility] 3 21:30:33 Cobalamin deficiency 960894392 Active 2021 Not Available [facility] 3 21:30:34 Chronic depression 395712916 Active Not Available [facility] 3 21:30:34 Asthma 569640802 Active Not Available [facility] 3 21:30:34 Edema 335460765 Active Not Available [facility] 3 21:30:34 Low back pain 415410706 Active Not Available [facility] 3 21:30:34 Hypertriglyce ridemia 876204988 Active Not Available [facility] 3 21:30:34 Type 2 diabetes mellitus without complication 026243543 Active 2021 Not Available [facility] 3 21:30:34 Sinusitis 59552571 Active Not Available [facility] 3 21:30:34 Arthritis 7314468 Active Not Available [facility] 3 21:30:34 Obesity 253238180 Active Not Available [facility] 3 21:30:34 Screening for malignant neoplasm of prostate Active 2021 Not Available [facility] 3 21:30:34 Anxiety 66996527 Active 2021 Not Available [facility] 3 21:30:34 Hyperlipidemi a 26246298 Active Not Available [facility] 3 21:30:34 Chronic rhinitis 15672520 Active Not Available [facility] 3 21:30:34 Dystrophia unguium 77014814 Active 2021 Not Available [facility] 3 21:30:34 Notes:Medical History: Depre ssion/Anxiety Rhinitis with postnasal drip Obesity with very severe JOCELYNE, AHI = 47, 11/19/20, on CPAP c/o IVRC Mixed hyperlipidemia T2DM IBD Iron deficinecy Vit B12 deficiency Vit E deficiency PLMD Low back pain Procedure History: Right esotropia surgery 1960 Colonoscopy with polypectomy 2016 Colon resection 2017 Appendectomy 2016 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 Procedures Surgical History Date Name Laterality Status Provider Name and Address Organization Details Recorded Time 10/06/19 Medicare Wellness CPT Code, subsequent completed Lisa Bowmna RN [facility] 10/05/2022 14:40:54 10/06/19 Advanced Care Planning completed JANET Hanks [facility] 10/05/2022 14:42:28 Eye Surgery completed Not Available [facility] 06/10/2022 04:42:30 Appendectomy completed Not Available [facility] 06/10/2022 04:42:30 partial resection of colon completed Not Available [facility] 06/10/2022 04:42:30 operation on rectum completed Not Available [facility] 06/10/2022 04:42:30 Imaging Results Imaging Date Name Status LastModified by Organiz ation Details LastModified Time 05/25/2022 XR, chest, 2 view completed Information not available 07/03/2022 13:38:48 Procedure Notes None recorded. Medical Equipment None Reported. Allergies No known drug allergies Medications Name Sig Start Date Stop Date Status Note LastModified by Organization Details LastModified Time cyclobenz aprine 10 mg tablet Take 1 tablet 3 times a day by oral route as needed. active GENERIC FOR FLEXERIL Not Available Not Available Not Available metformin 500 mg tablet TAKE 1 TABLET BY MOUTH EVERY DAY active Not Available Not Available No t Available vitamin E 200 unit capsule Take 1 capsule every day by oral route. 2022 active Not Available Not Available Not Avai lable erythromy diamond 500 mg tablet 06/24 completed Not Available Not Available Not Available Vitamin C 500 mg tablet Take 1 tablet every day by oral route. 2022 active Not Available Not Available Not Avai lable trazodone 50 mg tablet Take 1 tablet every day by oral route at bedtime for 10 days. active Not Available Not Available No t Available azithromy diamond 250 mg tablet TAKE 2 TABLETS (500 MG) BY ORAL ROUTE ONCE DAILY FOR 1 DAY THEN 1 TABLET (250 MG) BY ORAL ROUTE ONCE DAILY FOR 4 DAYS 05/25 completed Not Available Not Available Not Available hydrocodo ne 5 mg-acetam inophen 325 mg tablet TK 1 OR 2 TS PO Q 6 H PRN P 06/24 completed Not Available Not Available Not Available sertralin e 100 mg tablet TAKE 1 TABLET BY MOUTH EVERY DAY active Not Available Not Available No t Available venlafaxi ne ER 150 mg capsule,e xtended release 24 hr Take 1 capsule every day by oral route for 90 days. active Not Available Not Available No t Available cyanocoba elana (vit B-12) 1,000 mcg tablet Take 1 tablet every day by oral route. 2022 active Not Available Not Available Not Avai lable peg-elect rolyte solution 420 gram oral solution 06/24 completed Not Available Not Available Not Available tramadol 50 mg tablet Take 1 TABLET TID by oral route prn active Not Available Not Available No t Available amitripty line 50 mg tablet Take 1 tablet every day by oral route at bedtime. active Not Available Not Available No t Available Flagyl 500 mg tablet Take 1 tablet every 8 hours by oral route for 7 days. active Not Available Not Available No t Available cyanocoba elana (vit B-12) 1,000 mcg/mL injection solution Inject 1 mL every month by subcutan eous route. 02/01 completed TAKING B-12 TABS Not Available Not Available Not Available ferrous sulfate 325 mg (65 mg iron) tablet Take 1 tablet every day by oral route. 2022 active Not Available Not Available Not Avai lable Cipro 500 mg tablet Take 1 tablet twice a day by oral route for 7 days. active Not Available Not Available No t Available Gentle Laxative (bisacody l) 5 mg tablet,de layed release TK ALL 6 TS PO AT 8AM ON 12/31 completed Not Available Not Available Not Available diclofena c sodium 75 mg tablet,de layed release TK 1 T PO Q 12 H PRN active Not Available Not Available No t Available mont[address] 10 mg tablet TAKE 1 TABLET BY MOUTH EVERY DAY 2022 active Not Available Not Available Not Avai lable furosemid e 20 mg tablet TAKE 1 TABLET BY MOUTH EVERY DAY active Not Available Not Available No t Available cefuroxim e axetil 500 mg tablet Take 1 tablet every 12 hours by oral route for 21 days. 06/29 completed Not Available Not Available Not Available levofloxa diamond 500 mg tablet TK 1 T PO D FOR 7 DAYS active Not Available Not Available No t Available methylpre dnisolone 4 mg tablets in a dose pack TK UTD active Not Available Not Available Not Available neomycin 500 mg tablet 06/24 completed Not Available Not Available Not Available albuterol sulfate HFA 90 mcg/actua tion aerosol inhaler INHALE 2 PUFFS BY MOUTH EVERY 4 TO 6 HOURS NEEDED active Not Available Not Available No t Available sertralin e 50 mg tablet TAKE 1 TABLET BY MOUTH EVERY DAY 08/07 completed increase d to 100 Not Available Not Available Not Available rosuvasta tin 5 mg tablet TAKE 1 TABLET BY MOUTH EVERY DAY active Not Available Not Available No t Available Sinus and Allergy PE TK 1-2T PO QD EVERY 4-6HRS PRN 10/09 completed Not Available Not Available Not Available Symbicort 160 mcg-4.5 mcg/actua tion HFA aerosol inhaler Inhale 2 puffs twice a day by inhalati on route for 30 days. active Not Available Not Available No t Available GaviLyte- G 236 gram-22.7 4 gram-6.74 gram-5.86 gram oral solution 01/04 completed Not Available Not Available Not Available Combivent Respimat 20 mcg-100 mcg/actua tion solution for inhalatio n Inhale 1 puff 4 times a day by inhalati on route. active Not Available Not Available No t Available vitamin E mixed 200 unit tablet Take 1 tablet every day by oral route. 2022 active Not Available Not Available Not Avai lable Adults 50 Plus 10/09 completed Not Available Not Available Not Available Afluria Qd 2019- (36 mos up)(PF)60 mcg (15 mcg x4)/0.5 mL IM syringe ADM 0.5ML IM UTD 10/09 completed Not Available Not Available Not Available Vitals Date Recorded Body height Body mass index (BMI) Body weight Body temperature Heart rate Systolic blood pressure Diastolic blood pressure Provider Name and Address Organization Details Last Updated DateTime 3 170.18 cm 45.7 kg/m2 322649. 97 g 98.2 [degF] 63 /min 122 mm[Hg] 78 mm[Hg] KALEIGH Simpson [place] [facility] 3 14:14:20 Date Recorded Body height Body mass index (BMI) Body weight Body temperature Oxygen saturation Oxygen saturation in Arterial blood by Pulse oximetry Systolic blood pressure Diastolic blood pressure Provider Name and Address Organization Details Last Updated DateTime 3 170.18 cm 46 kg/m2 885791. 44 g 98.3 [degF] 95 % 95 % 118 mm[Hg] 70 mm[Hg] Jena Curry MA [facility] 3 11:48:53 Date Recorded Heart rate Heart rate Respiratory rate Provider Name and Address Organization Details Last Updated DateTime 08/10/2022 60 /min 60 /min 15 /min Eusebio Barbosa MD [address] [address], [place], [address], [facility] 08/10/2022 11:49:15 Date Recorded Body height Body mass index (BMI) Body weight Body temperature Heart rate Systolic blood pressure Diastolic blood pressure Provider Name and Address Organization Details Last Updated DateTime 3 170.18 cm 45.9 kg/m2 096276. 56 g 98.1 [degF] 60 /min 120 mm[Hg] 86 mm[Hg] KALEIGH Simpson [facility] 3 14:29:46 Date Recorded Body height Body mass index (BMI) Body weight Body temperature Heart rate Systolic blood pressure Diastolic blood pressure Provider Name and Address Organization Details Last Updated DateTime 3 170.18 cm 46.7 kg/m2 676947. 53 g 98.4 [degF] 60 /min 122 mm[Hg] 76 mm[Hg] KALEIGH Simpson [facility] 3 15:26:43 Date Recorded Body height Body mass index (BMI) Body weight Body temperature Oxygen saturation Oxygen saturation in Arterial blood by Pulse oximetry Systolic blood pressure Diastolic blood pressure Provider Name and Address Organization Details Last Updated DateTime 3 170.18 cm 46.4 kg/m2 514578. 34 g 97.7 [degF] 98 % 98 % 124 mm[Hg] 74 mm[Hg] Jena Curry MA [facility] 3 15:01:42 Date Recorded Heart rate Heart rate Respiratory rate Provider Name and Address Organization Details Last Updated DateTime 02/23/2023 59 /min 59 /min 14 /min Eusebio Barbosa MD [address] [facility] [address], [place], [address], [facility] 02/23/2023 15:25:04 Social History Question Answer Notes LastModified by Organization Details LastModified Time Tobacco Smoking Status Never Smoker Not Available [facility] 06/10/2022 04:08:03 Do You Have An Advance Directive? No Patient Declined Informatio n. [email or web address].[id number] [id number] Information not available 06/10/2022 What Is Your Level Of Alcohol Consumption? Occasional Rarely Per Pt MIGRATION.0301 [id number] Information not available 06/10/2022 Are You Blind Or Do You Have Difficulty Seeing? No MIGRATION.0301 [id number] Information not available 06/10/2022 What Is Your Level Of Caffeine Consumption? Occasional MIGRATION.0301 [id number] Information not available 06/10/2022 How Much Tobacco Do You Chew? None MIGRATION.0301 [id number] Information not available 06/10/2022 In The 14 Days Before Symptom Onset, Have You Had Close Contact With A Laboratory-confi rmed COVID-19 While That Case Was Ill? No MIGRATION.0301 [id number] Information not available 06/10/2022 In The 14 Days Before Symptom Onset, Have You Had Close Contact With A Person Who Is Under Investigation For COVID-19 While That Person Was Ill? No MIGRATION.0301 [id number] Information not available 06/10/2022 Are You Deaf Or Do You Have Serious Difficulty Hearing? No MIGRATION.0301 [id number] Information not available 06/10/2022 What Type Of Diet Are You Following? REGULAR MIGRATION.0301 [id number] Information not available 06/10/2022 Which Illicit Or Recreational Drugs Have You Used? None MIGRATION.0301 [id number] Information not available 06/10/2022 Do You Or Have You Ever Used E-cigarettes Or Vape? Never Used Electronic Cigarettes MIGRATION.0301 [id number] Information not available 06/10/2022 What Is The Highest Grade Or Level Of School You Have Completed Or The Highest Degree You Have Received? [id number] MIGRATION.0301 [id number] Information not available 06/10/2022 Do You Have An Electrostatic Air Filter? No MIGRATION.0301 [id number] Information not available 06/10/2022 Have There Been Any Changes To Your Family Or Social Situation? No MIGRATION.0301 [id number] Information not available 06/10/2022 What Is The Fluoride Status Of Your Home? Unknown MIGRATION.0301 [id number] Information not available 06/10/2022 Are There Any Guns Present In Your Home? No MIGRATION.0301 [id number] Information not available 06/10/2022 Do You Have A Humidifier? Yes MIGRATION.0301 [id number] Information not available 06/10/2022 Do You Use Insect Repellent Routinely? Yes MIGRATION.0301 [id number] Information not available 06/10/2022 Where Do You Live? [facility] MIGRATION.0301 [id number] Information not available 06/10/2022 Do You Have A Medical Power Of Incident Response Engineer? No MIGRATION.0301 [id number] Information not available 06/10/2022 Do You Have Moisture Problems In Your Home? No MIGRATION.0301 [id number] Information not available 06/10/2022 What Was The Date Of Your Most Recent Tobacco Screening? 02/23/2023 [email or web address] Information not available 02/23/2023 Have You Ever Been Counseled For Unhealthy Alcohol Use? No MIGRATION.0301 [id number] Information not available 06/10/2022 Do You Have Any Pets? No MIGRATION.0301 [id number] Information not available 06/10/2022 What Is Your Relationship Status? MIGRATION.0301 [id number] Information not available 06/10/2022 Do You Use Your Seat Belt Or Car Seat Routinely? Yes MIGRATION.0301 [id number] Information not available 06/10/2022 Do You Have Smoke And Carbon Monoxide Detectors In Your Home? Yes MIGRATION.0301 [id number] Information not available 06/10/2022 Are You Passively Exposed To Smoke? No MIGRATION.0301 [id number] Information not available 06/10/2022 Do You Or Have You Ever Used Smokeless Tobacco? Never Used Smokeless Tobacco MIGRATION.0301 [id number] Information not available 06/10/2022 Are There Any Smokers In Your House? No MIGRATION.0301 [id number] Information not available 06/10/2022 How Much Tobacco Do You Smoke? No MIGRATION.0301 [id number] Information not available 06/10/2022 What Types Of Sporting Activities Do You Participate In? None MIGRATION.0301 [id number] Information not available 06/10/2022 Do You Feel Stressed (tense, Restless, Nervous, Or Anxious, Or Unable To Sleep At Night)? [id number] MIGRATION.030 [id number] Information not available 06/10/2022 Do You Use Any Illicit Or Recreational Drugs? No MIGRATION.030 [id number] Information not available 06/10/2022 Do You Use Sunscreen Routinely? Yes MIGRATION.030 [id number] Information not available 06/10/2022 Has Tobacco Cessation Counseling Been Provided? No Not Needed-nev er Smoked MIGRATION.030 [id number] Information not available 06/10/2022 How Many Years Have You Smoked Tobacco? 0 MIGRATION.030 [id number] Information not available 06/10/2022 Have You Recently Traveled Abroad? No MIGRATION.030 [id number] Information not available 06/10/2022 Do You Have Any Dietary Restrictions? No MIGRATION.030 [id number] Information not available 06/10/2022 Do You Or Have You Ever Used Any Other Forms Of Tobacco Or Nicotine? No MIGRATION.030 [id number] Information not available 06/10/2022 Sex: Male Functional Status Question Answer Note LastModified by Organizat ion Details LastModified Time Do you have difficulty walking or climbing stairs? No [id number] Information not available 06/10/2022 Do you have transportation difficulties? No [id number] Information not available 06/10/2022 Are you able to walk? YESWOREST [id number].[id number] 026 Information not available 06/10/2022 Do you have difficulty doing errands alone? No [id number].[id number] Information not available 06/10/2022 Are you able to care for yourself? Yes [id number] 026 Information not available 06/10/2022 Do you have difficulty dressing or bathing? No MIGRATION.[id number] 026 Information not available 06/10/2022 What is your exercise level? None [id number].[id number] 026 Information not available 06/10/2022 Mental Status Question Answer Note LastModified by Organizat ion Details LastModified Time Do you have difficulty concentrating, remembering or making decisions? No [id number] 6 Information not available 06/10/2022 Family History Relationship Description Onset Age of this Age Resolved Age Notes LastModified by Organization Details LastModified Time Mother Diabetes mellitus MIGRATION.170 [id number] Not available 06/10/2022 04:42:31 Brother Malignant tumor of pharynx with METS MIGRATION.270 [id number] Not available 06/10/2022 04:42:31 Brother Obstructive sleep apnea syndrome MIGRATION.105 [id number] Not available 06/10/2022 04:42:31 Sister Malignant tumor of pharynx MIGRATION.756 [id number] Not available 06/10/2022 04:42:31 Father Chronic obstructive pulmonary disease deceas ed MIGRATION.971 [id number] Not available 06/10/2022 04:42:31 Father Diverticulit is MIGRATION.603 [id number] Not available 06/10/2022 04:42:31 Medical History Condition Response NERVE DISEASE N BLINDNESS N RHEUMATIC FEVER N KIDNEY STONES N BLADDER PROBLEMS N MRSA N OTHER # 1 Y POLIO N LUNG DISEASE/DISORDER N RADIATION / CHEMOTHERAPY N COPD N Other # 2 N BLOOD DISEASES N EAR OR HEARING PROBLEMS N MUMPS N BOWEL PROBLEMS Y DEPRESSION (INCLUDING POST ) Y STROKE/TIA N ULCERS N BENIGN PROSTATIC HYPERPLASIA N MEASLES N MYOCARDIAL INFARCTION N OBESITY Y GERD/NAUSEA N ANEURYSM N URINARY/BLADDER/KIDNEY PROBLEMS Y CORONARY ARTERY DISEASE (CAD) N ADDICTION CONCERNS N Impotence N ENDOMETRIOSIS N USE OF BLOOD THINNERS N SKIN PROBLEMS N GASTROINTESTINAL DISORDER N PERIPHERAL VASCULAR DISEASE N MUSCLE,JOINT OR BONE PROBLEMS N GASTROINTESTINAL BLEEDING N BLOOD CLOTS N ASTHMA Y CATARACTS N ERECTILE DYSFUNCTION N VARICOSITIES N GI PROBLEMS N Low Testosterone N INFERTILITY N AIDS/HIV N CHEMOTHERAPY / RADIATION N LIVER DISEASE N MALE HYPOGONADISM N HYPERTENSION N Deficiency N TOURETTE'S N ANXIETY DISORDER N BLOOD TRANSFUSION N ANEMIA/BLOOD DISORDER N CHRONIC EAR INFECTIONS N BRONCHITIS Y TUBERCULOSIS N GLAUCOMA N FOOT PROBLEM N DIVERTICULITIS N SLEEP APNEA Y CHICKENPOX N INFECTIOUS DISEASE N PROSTATE N HEART ARRHYTHMIA N INSOMNIA N HIGH CHOLESTEROL / HYPERLIPIDEMIA Y EYE PROBLEMS N HYPERTHYROIDISM N EDEMA Y CHRONIC PAIN SYNDROME N HYPOTHYROIDISM N CONSTIPATION N CAROTID BLOCKAGE N BACK / NECK PROBLEMS N ATHEROSCLEROSIS N BREAST PROBLEMS N DIALYSIS N ECZEMA N OSTEOPOROSIS N ARTHRITIS Y APPENDICITIS N DIABETES, TYPE N BAD TEETH N ENT N HEARTBURN / REFLUX N AUTISM SPECTRUM DISORDER (ASD) N HEPATITIS / LIVER DISEASE N GOUT N SLEEP DISORDER N ALZHEIMER'S DISEASE N Brain Problems N DEMENTIA N HERPES N SEIZURES/EPILEPSY N HEADACHES/MIGRAINES N VASCULAR DISEASE N PACEMAKER N Blood Disorder N DIZZINESS N HEART DISEASE/HEART PROBLEMS N KIDNEY DISEASE N MULTIPLE SCLEROSIS N CANCER: SPECIFY N CARDIAC ARRHYTHMIA N ATRIAL FIBRILLATION N Gall Stones N PULMONARY EMBOLISM N AUTOIMMUNE DISEASE N Immunizations Vaccine Type Date Status Note Provider Nam e and Address Organization Details Recorded Time Influenza, split virus, trivalent, preservative 0 completed Not Available [facility] 02/18/2023 21:30:34 Influenza, high-dose, quadrivalent, PF 3 completed Jennifer Perez MD [address] [facility], [place], [address], [employer] 02/01/2023 20:57:54 Pneumococcal conjugate PCV20, polysaccharide PFH522 conjugate, adjuvant, PF 3 completed Jennifer Perez MD [address] [facility], [address], [place], [address], [employer] 10/06/2022 08:36:54 Past Encounters Encounter ID Performer Location Encounter Start Date Encounter Closed Date Diagnosis/Indication Diagnosis SNOMED-CT Code Diagnosis ICD10 Code Diagnosis Note [id number] [facility] [address] [place], [place] [address]., [address] [address] 10/09/2020 00:00:00 10/14/2020 18:30:32 [id number] [facility] [address] [place], [place] [address]., [address] [address] 05/09/2021 00:00:00 05/09/2021 20:29:44 [id number] [facility] Internal Med [facility] [address] [place], [place] [address]., [address] [address] 06/09/2021 00:00:00 06/14/2021 16:24:15 [id number] [facility] [place] [address] [place] [address] Ave[address] [address] 06/17/2021 00:00:00 06/17/2021 15:06:20 [id number] [facility] Internal Med [address] [address] 07/07/2021 00:00:00 07/13/2021 17:57:38 [id number] [facility] Pod[facility] [place] [address] [facility] [place] [address] 07/10/2021 00:00:00 07/10/2021 10:23:45 [id number] [facility] Internal Med [address] [address] 10/06/2021 00:00:00 10/06/2021 21:55:05 [id number] [facility] Pulmonolo [address] [address] 10/15/2021 00:00:00 10/15/2021 15:21:44 [id number] [facility] Internal Med [address] [address] 01/26/2022 00:00:00 01/26/2022 22:54:11 [id number] [facility] [address]mon[address] [address] 02/10/2022 00:00:00 02/10/2022 15:21:02 [id number] [facility] Internal Med [address] [address] 05/25/2022 00:00:00 05/31/2022 20:19:34 [id number] Jennifer Perez MD [facility] [address] [address] 06/29/2022 14:06:18 06/29/2022 15:22:21 Chronic rhinitis 27963230 J31.0 Type 2 ivy betes mellitus without complication 440646718 E11.9 [id number] Eusebio Barbosa MD [facility] [address] [address] 08/10/2022 11:33:57 08/11/2022 07:45:25 Solitary nodule of lung 687945323 R91.1 Vitamin E deficiency 541 04984 E56.0 Iron deficiency 85001532 E61.1 Vitamin B1 2 deficiency (non anemic) 75596706 E53.8 Obstructiv e sleep apnea syndrome 34820024 G47.33 [id number] Jennifer Perez MD [facility] Internal Med [facility] [address] [address] 10/05/2022 14:15:43 10/05/2022 15:05:33 Adult health examination 713762799 Z00.00 Screening for disorder 798509969 Z13.9 Administra tion of pneumococcal vaccine 94684778 Z23 Asthma 278954046 J45.90 9 Edema 725538474 R60.9 Hyperlipidemia 82872381 E78.5 [id number] Jennifer Perez MD [facility] Internal Med [facility] [address] [address] 02/01/2023 15:15:21 02/01/2023 15:51:28 Hyperlipidemia 57729926 E78.5 Essential hypertension 86313721 I10 Type 2 ivy betes mellitus without complication 610637941 E11.9 Administra tion of influenza vaccine 65034602 Z23 [id number] Eusebio Barbosa MD [facility] Pulmonolo gy [place] [address] [place] [address] 02/23/2023 14:39:31 02/24/2023 08:19:01 Solitary nodule of lung 871077315 R91.1 Vitamin E deficiency 541 38266 E56.0 Iron deficiency 01346857 E61.1 Vitamin B1 2 deficiency (non anemic) 22890735 E53.8 Obstructiv e sleep apnea syndrome 64749168 G47.33 Health Concerns Section Related Observation LastModified by Organization Detai ls LastModified Time None Recorded Concern Status LastModified by Organization Details LastModified Time None Recorded Advance Directives Directive N: Patient declined informat ion. Payers Encounter Date Sequence Insurance Name Policy Number Policy Christian Covered Member ID Christian Member ID Guarantor Name 06/29/2022 1 [facility] (MEDICARE REPLACEMENT/A DVANTAGE - HMO) [id number] Julio Cesar Shane Box [id number] Julio Cesar Sterling 08/10/2022 1 [facility] (MEDICARE REPLACEMENT/A DVANTAGE - HMO) [id number] Julio Cesar Shane Box [id number] Julio Cesar Sterilng 10/05/2022 1 [facility] (MEDICARE REPLACEMENT/A DVANTAGE - HMO) [id number] Julio Cesar Box [id number] Julio Cesar Box 02/01/2023 1 [facility] (MEDICARE REPLACEMENT/A DVANTAGE - HMO) [id number] Julio Cesar Box [id number] Julio Cesar Box 02/23/2023 1 [facility] (MEDICARE REPLACEMENT/A DVANTAGE - HMO) [id number] Julio Cesar Box [id number] Julio Cesar Box Notes Date Note Type Note Provider Name and Address Organization Details Recorded Time 06/29/2022 text/html Cough gone rhini tis doing fine A1c 6.3 Jennifer Perez MD [address] [facility], [facility] [address], [place], [address], [facility] [employer] 06/29/2022 20:50:31 08/10/2022 text/html Primary care/Ref erring provider: Jennifer Perez MD During the [facility] split night sleep study on 11/19/20, the patient had an AHI = 47.PLMI = 24 and the patient is here to go over his lab workup.At home since 10/15/21, the patient uses a [employer] AirSense 11 autoset unit with heated humidification. The patient does not need the ramp to start low and go up slowly on the pressure anymore. There is no xerostomia in a.m. There is no hose/mask condensation with water.The patient wears a [employer] medium Forma full face mask without chin strap. There is no claustrophobia, no nostril/nose bridge irritation, no facial rash, no facial numbness, no nosebleeding.The patient feels more refreshed upon waking and daytime alertness is improved. Energy levels are sustained for the remainder of the day.At home, the patient sleeps 1 am to 10 from and wakes up without an alarm.Snoring: heavy, since 1970s.Snorting: yesChoking: noCoughing: noGasping: noGagging: noSighing: noWitnessed apnea: yesTwitching or jerking of leg(s), arm(s), body, head: yesTeeth grinding: noTeeth clenching: noSleeptalking: noSleepwalking: noSleep crying: noBedwetting: noTongue/lip/gum/cheek biting: noSleeping with open mouth: yesSleep paralysis: noHypnagogic hallucinations: noHypnopompic hallucinations: noVivid dreams: noDifficulty with sleep onset: yesDifficulty with sleep maintenance: yesSleep interruptions: nocturia x 2Patient wakes up with: fatigueDaytime cataplexy: noMorning hypersomnolence: yesAfternoon hypersomnolence: yesCaffeine sources in diet: soda 2/3 glass per day, chocolate 1 candy bar per monthAssociated medical and psychiatric conditions:Congestive heart failure: noCoronary artery disease: noMyocardial infarction: noHypertension: noStroke: noBronchial asthma: noChronic obstructive pulmonary disease: noDepression: yesBipolar disorder: noAnxiety: yesPanic disorder: noPosttraumatic stress disorder: noAttention deficit and hyperactivity disorder: noObsessive Compulsive disorder: noSchizophrenia: noSchizoaffective disorder: noPersonality disorder: noChronic analgesic use: noChronic sedative/hypnotic use: noEPWORTH SLEEPINESS SCALE (ESS)CHANCE OF DOZING SCORE0 = would never doze1 = slight chance of dozing2 = moderate chance of dozing3 = high chance of dozingSITUATION AND CHANCE OF DOZINGSitting and reading - 0Watching television - 0Sitting inactive in a public place (e.g. a theater or meeting) - 0As a passenger in a car for an hour without a break - 0Lying down to rest in the afternoon when circumstances permit - 3Sitting and talking to someone - 0Sitting quietly after lunch without alcohol - 0In a car, while stopped for a few minutes in the traffic - 0TOTAL SCORE 3Subjectively, patient has a slight chance of dozing. Eusebio Barbosa MD [address], [facility] [address], [place], [address], [facility] [employer] 08/10/2022 17:29:29 10/05/2022 text/html Diabetes no poly phagia polydipsia. Anxiety doing fine no SI or HI. Edema about the same. Dyslipidemia trying to watch his fat intake Medicare Wellness concluded Jennifer Perez MD [address], [place], [address], [employer] [facility] 10/06/2022 08:36:59 02/01/2023 text/html Diabetes no poly phagia polydipsia. Anxiety doing fine no SI or HI. Edema about the same. Dyslipidemia trying to watch his fat intake Jennifer Perez MD [address], [place], [address], [employer] [facility] 02/01/2023 20:57:58 02/23/2023 text/html Primary care/Ref erring provider: Jennifer Perez MD During the [facility] split night sleep study on 11/19/20, the patient had an AHI = 47.PLMI = 24 and the patient has iron, B12 and vit E deficiencies.At home since 08/10/22, the patient uses a [employer] AirSense 11 autoset unit with heated humidification. The patient does not need the ramp to start low and go up slowly on the pressure anymore. There is no xerostomia in a.m. There is no hose/mask condensation with water.The patient wears a [employer] medium Forma full face mask without chin strap. There is no claustrophobia, no nostril/nose bridge irritation, no facial rash, no facial numbness, no nosebleeding.The patient feels more refreshed upon waking and daytime alertness is improved. Energy levels are sustained for the remainder of the day.At home, the patient sleeps 1 am to 10 from and wakes up without an alarm.Snoring: heavy, since 1970s.Snorting: yesChoking: noCoughing: noGasping: noGagging: noSighing: noWitnessed apnea: yesTwitching or jerking of leg(s), arm(s), body, head: yesTeeth grinding: noTeeth clenching: noSleeptalking: noSleepwalking: noSleep crying: noBedwetting: noTongue/lip/gum/cheek biting: noSleeping with open mouth: yesSleep paralysis: noHypnagogic hallucinations: noHypnopompic hallucinations: noVivid dreams: noDifficulty with sleep onset: yesDifficulty with sleep maintenance: yesSleep interruptions: nocturia x 2Patient wakes up with: fatigueDaytime cataplexy: noMorning hypersomnolence: yesAfternoon hypersomnolence: yesCaffeine sources in diet: soda 2/3 glass per day, chocolate 1 candy bar per monthAssociated medical and psychiatric conditions:Congestive heart failure: noCoronary artery disease: noMyocardial infarction: noHypertension: noStroke: noBronchial asthma: noChronic obstructive pulmonary disease: noDepression: yesBipolar disorder: noAnxiety: yesPanic disorder: noPosttraumatic stress disorder: noAttention deficit and hyperactivity disorder: noObsessive Compulsive disorder: noSchizophrenia: noSchizoaffective disorder: noPersonality disorder: noChronic analgesic use: noChronic sedative/hypnotic use: noEPWORTH SLEEPINESS SCALE (ESS)CHANCE OF DOZING SCORE0 = would never doze1 = slight chance of dozing2 = moderate chance of dozing3 = high chance of dozingSITUATION AND CHANCE OF DOZINGSitting and reading - 1Watching television - 1Sitting inactive in a public place (e.g. a theater or meeting) - 1As a passenger in a car for an hour without a break - 0Lying down to rest in the afternoon when circumstances permit - 0Sitting and talking to someone - 0Sitting quietly after lunch without alcohol - 1In a car, while stopped for a few minutes in the traffic - 0TOTAL SCORE 4Subjectively, patient has a slight chance of dozing. Eusebio Barbosa MD [address] [place] [address], [place], [address], [place] [facility] [employer] 02/23/2023 15:25:43
--- OUTSIDE RECORDS SUMMARY | 2024-05-11 01:09 | XMS_ITS | Data Portability ---
Author Organization [facility] [place] Ceron Address [address] [place] [address] Care Team Providers Care Corporate Affairs Manager Name Role Phone JENNIFER PEREZ Primary Care Provider ALEX Mendiola Air Battle Manager Assessment Encounter Date Assessment Date Assessment LastModified by Organization Details LastModified Time 07/07/2023 07/07/2023 Weight reduction through caloric restriction blood work for biochemical management of disease processes and medications. Obtain old records and follow-up with me in 4-month [email or web address] Not available 07/07/2023 21:11:26 08/11/2023 08/11/2023 BNP CMP echo Lasix 20 mg daily he will let me know in a couple of days how he is doing hemoglobin A1c 6.1 [email or web address] Not available 08/16/2023 23:12:22 11/10/2023 11/10/2023 we will obtain blood work and a urinalysis CBC CMP lipid A1c T3-T4 TSH UA increase his Lasix to 40 b.i.d. for 3 days and then he will back down to his regular dose he will let me know in a few days how he is responding to that dose.rtc 3 months [email or web address] Not available 11/12/2023 21:00:42 11/17/2023 11/17/2023 comes in for a preventative visit all checklist and risk assessed reviewed collected also was bit by something left upper extremity has a little bit of redness no vascular compromise we will give some doxycycline and prednisone and he will call back if not improved also because of some ongoing edema in the legs when he will get venous duplex with reflex studies [email or web address] Not available 11/28/2023 16:48:28 02/09/2024 02/09/2024 [email or web address] 250 daily times 12 weeks. Healthy lifestyle care instructions. Due for PSA flu shot colonoscopy he will consider COVID vaccination no change in his chronic medicines at this time all questions answered follow up in 4 months Not available 02/09/2024 22:36:37 Plan of Treatment Reminders Order Date Submit Date Provider Last Modified By Organization Details Last Modified Time Details Appointments ANY 15 2024 11:00A M Jennifer Perez MD Not available Not available Not available Lab HbA1c (hemoglob in A1c), blood 2023 024 [place] [facility], [address], [place], [address], 07/29/2023 11:20:08 lipid panel, serum 2023 024 [place] [facility], [address], [place], [address], 07/29/2023 11:20:06 CMP, serum or plasma 2023 024 [place] [facility], [address], [place], [address], 07/29/2023 11:20:07 CBC w/ auto diff 2023 024 [place] [facility], [address], [place], [address], 07/29/2023 11:20:09 BNP (B-type natriuret ic peptide), blood 2023 024 [facility], [address], [place], [address], 08/24/2023 14:04:17 CMP, serum or plasma 2023 024 [place] [facility], [address], [place], [address], 08/12/2023 10:12:43 HbA1c (hemoglob in A1c), blood 2023 024 [email or web address] In-Office Order, Internal Use Only DO Not Attach Compendium DO Not Attach Compendium, Do Not Delete/merge, [id number] 08/16/2023 23:12:41 HbA1c (hemoglob in A1c), blood 2023 024 [facility], [address], [place], [address], 11/11/2023 13:11:32 albumin/c reatinine , mass ratio, urine 2023 024 [place] [facility], [address], [place], [address], 11/11/2023 13:11:30 lipid panel, serum 2023 024 [facility], [address], [place], [address], 11/11/2023 13:11:31 CMP, serum or plasma 2023 024 [place] [facility], [address], [place], [address], 11/11/2023 13:11:31 CBC w/ auto diff 2023 024 [place] [facility], [address], [place], [address], 11/11/2023 13:11:34 urinalysi s, microscop ic 2023 024 [place] [facility], [address], [place], [address], 11/11/2023 13:11:32 T4, free, serum 2023 024 [place] [facility], [address], [place], [address], 11/11/2023 13:11:35 T3, free, serum or plasma 2023 024 [place] [facility], [address], [place], [address], 11/11/2023 13:11:35 TSH, ultra-sen sitive, serum 2023 024 [place] [facility], [address], [place], [address], 11/11/2023 13:11:33 PSA, total, serum or plasma 2023 024 [email or web address] [facility], [address], [place], [address], 03/23/2024 14:21:22 Referral nutrition ist/dieti kaity referral 2023 024 [facility], [address], [place], [address], 12/06/2023 14:13:12 Procedures colonosco py screening (PROC) - follow up, polyps [address] [facility], [address], [address], [place], [address], 03/14/2024 11:46:23 Surgeries None recorded. Imaging US, echocardi ogram 2023 024 [facility]), [address], [place], [address], 08/23/2023 14:30:26 Medication Orders Lasix 20 mg tablet 2023 024 [email or web address] [id number], [address], [place], [place], [id number], 08/11/2023 13:29:17 terbinafi ne HCl 250 mg tablet 2023 024 [email or web address] [id number], [address], [place], [place], [id number], 02/09/2024 16:52:58 Patient TargetsNo targets recorded. 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 Refer ral for Type 2 diabetes mellitus Referring Physician: Jennifer Perez, Internal Medicine, Encounter Date: 11/17/2023 Results Created Date Observation Date Name Description Value Unit Range Abnormal Flag Note LastModifiedBy Organization Detail LastModifiedTime 07/28/19 24 07/29/2023 LIPID PANEL cholesterol, total 93 mg/dL 100-19 9 below low normal Not Available [facility] ([facility]) [address] [place], [address], 07/29/2023 11:20:06 07/28/19 24 07/29/2023 LIPID PANEL triglyceride s 175 mg/dL 0-149 above high normal Not Available [facility] ([facility]) [address] [place], [address], 07/29/2023 11:20:06 07/28/19 24 07/29/2023 LIPID PANEL HDL cholesterol 35 mg/dL >39 below low normal Not Available [facility] ([facility]) [address] [place], [address], 07/29/2023 11:20:06 07/28/19 24 07/29/2023 LIPID PANEL VLDL cholesterol arjun 29 mg/dL 5-40 Not Available [facility] [address] [place], [address], 07/29/2023 11:20:06 07/28/19 24 07/29/2023 LIPID PANEL LDL chol calc ([facility]) 29 mg/dL 0-99 Not Available [facility] [address] [place], [address], 07/29/2023 11:20:06 07/28/19 24 07/29/2023 COMP. METAB OLIC PANEL (14) glucose 98 mg/dL 70-99 Not Available [facility] ([facility]) [address] [place], [address], 07/29/2023 11:20:07 07/28/19 24 07/29/2023 COMP. METAB OLIC PANEL (14) BUN 14 mg/dL 8-27 Not Available [facility] ([facility]) [address] [place], [address], 07/29/2023 11:20:07 07/28/19 24 07/29/2023 COMP. METAB OLIC PANEL (14) creatinine 0.74 mg/dL 0.76-1 .27 below low normal Not Available [facility] ([facility]) [address] [place], [address], 07/29/2023 11:20:07 07/28/19 24 07/29/2023 COMP. METAB OLIC PANEL (14) eGFR 99 mL/mi n/1.7 3 >59 Not Available [facility] ([facility]) [address] [place], [address], 07/29/2023 11:20:07 07/28/19 24 07/29/2023 COMP. METAB OLIC PANEL (14) BUN/creatini ne ratio 19 10-24 Not Available [facility] ([facility]) [address] [place], [address], 07/29/2023 11:20:07 07/28/19 24 07/29/2023 COMP. METAB OLIC PANEL (14) sodium 145 mmol/ L 134-14 4 above high normal Not Available [facility] ([facility]) [address] [facility] [place], [address], 07/29/2023 11:20:07 07/28/19 24 07/29/2023 COMP. METAB OLIC PANEL (14) potassium 4.2 mmol/ L 3.5-5. 2 Not Available [facility] ([facility]) [address] [facility] [place], [address], 07/29/2023 11:20:07 07/28/19 24 07/29/2023 COMP. METAB OLIC PANEL (14) chloride 108 mmol/ L 96-106 above high normal Not Available [facility] ([facility]) [address] [facility] [place], [address], 07/29/2023 11:20:07 07/28/19 24 07/29/2023 COMP. METAB OLIC PANEL (14) carbon dioxide, total 25 mmol/ L 20-29 Not Available [facility] ([facility]) [address] [facility] [place], [address], 07/29/2023 11:20:07 07/28/19 24 07/29/2023 COMP. METAB OLIC PANEL (14) calcium 9.4 mg/dL 8.6-10 .2 Not Available [facility] ([facility]) [address] [facility], [address], 07/29/2023 11:20:07 07/28/19 24 07/29/2023 COMP. METAB OLIC PANEL (14) protein, total 7.0 g/dL 6.0-8. 5 Not Available [facility] ([facility]) [address] [facility] [place], [address], 07/29/2023 11:20:07 07/28/19 24 07/29/2023 COMP. METAB OLIC PANEL (14) albumin 4.1 g/dL 3.9-4. 9 Not Available [facility] ([facility]) [address] [facility], [place], [address], 07/29/2023 11:20:07 07/28/19 24 07/29/2023 COMP. METAB OLIC PANEL (14) globulin, total 2.9 g/dL 1.5-4. 5 Not Available [facility] ([facility]) [address] [facility], [place], [address], 07/29/2023 11:20:07 07/28/19 24 07/29/2023 COMP. METAB OLIC PANEL (14) A/G ratio 1.4 1.2-2. 2 Not Available [facility] ([facility]) [address] [facility], [place], [address], 07/29/2023 11:20:07 07/28/19 24 07/29/2023 COMP. METAB OLIC PANEL (14) bilirubin, total 0.3 mg/dL 0.0-1. 2 Not Available [facility] ([facility]) [address] [facility], [place], [address], 07/29/2023 11:20:07 07/28/19 24 07/29/2023 COMP. METAB OLIC PANEL (14) alkaline phosphatase 108 IU/L 44-121 Not Available [facility]) [address] [facility], [place], [address], 07/29/2023 11:20:07 07/28/19 24 07/29/2023 COMP. METAB OLIC PANEL (14) AST (SGOT) 24 IU/L 0-40 Not Available [facility] ([facility]) [address] [facility], [place], [address], 07/29/2023 11:20:07 07/28/19 24 07/29/2023 COMP. METAB OLIC PANEL (14) ALT (SGPT) 18 IU/L 0-44 Not Available [facility] ([facility]) [address] [facility], [place], [address], 07/29/2023 11:20:07 07/28/19 24 07/29/2023 HEMOG LOBIN A1C hemoglobin A1C 6.3 % 4.8-5. 6 above high normal Predi abete s: 5.7 - 6.4 Diabe nghia: >6.4 Glyce roxana contr ol for adult s with diabe nghia: <7.0 Not Available [facility] ([facility]) [address] [facility], [place], [address], 07/29/2023 11:20:08 07/28/19 24 07/29/2023 CBC WITH DIFFE RENTI AL/PL ATELE T WBC 4.6 x10e3 /uL 3.4-10 .8 Not Available [facility] ([facility]) [address] [place], [address], 07/29/2023 11:20:08 07/28/19 24 07/29/2023 CBC WITH DIFFE RENTI AL/PL ATELE T RBC 4.53 x10e6 /uL 4.14-5 .80 Not Available [facility] ([facility]) [address] [facility], [place], [address], 07/29/2023 11:20:08 07/28/19 24 07/29/2023 CBC WITH DIFFE RENTI AL/PL ATELE T hemoglobin 13.7 g/dL 13.0-1 7.7 Not Available [facility] ([facility]) [address] [place], [address], 07/29/2023 11:20:08 07/28/19 24 07/29/2023 CBC WITH DIFFE RENTI AL/PL ATELE T hematocrit 42.8 % 37.5-5 1.0 Not Available [facility] ([facility]) [address] [place], [address], 07/29/2023 11:20:08 07/28/19 24 07/29/2023 CBC WITH DIFFE RENTI AL/PL ATELE T MCV 95 fL 79-97 Not Available [facility] ([facility]) [address] [facility], [place], [address], 07/29/2023 11:20:08 07/28/19 24 07/29/2023 CBC WITH DIFFE RENTI AL/PL ATELE T MCH 30.2 pg 26.6-3 3.0 Not Available [facility] ([facility]) [address] [place], [address], 07/29/2023 11:20:08 07/28/19 24 07/29/2023 CBC WITH DIFFE RENTI AL/PL ATELE T MCHC 32.0 g/dL 31.5-3 5.7 Not Available [facility] ([facility]) [address] [facility], [place], [address], 07/29/2023 11:20:08 07/28/19 24 07/29/2023 CBC WITH DIFFE RENTI AL/PL ATELE T RDW 14.5 % 11.6-1 5.4 Not Available [facility] ([facility]) [address] [facility], [place], [address], 07/29/2023 11:20:08 07/28/19 24 07/29/2023 CBC WITH DIFFE RENTI AL/PL ATELE T platelets 187 x10e3 /uL 150-45 0 Not Available [facility] ([facility]) [address] [facility], [place], [address], 07/29/2023 11:20:08 07/28/19 24 07/29/2023 CBC WITH DIFFE RENTI AL/PL ATELE T neutrophils 62 % notest ab. Not Available [facility] ([facility]) [address] [place], [address], 07/29/2023 11:20:08 07/28/19 24 07/29/2023 CBC WITH DIFFE RENTI AL/PL ATELE T lymphs 24 % notest ab. Not Available [facility] ([facility]) [address] [facility], [place], [address], 07/29/2023 11:20:08 07/28/19 24 07/29/2023 CBC WITH DIFFE RENTI AL/PL ATELE T monocytes 11 % notest ab. Not Available [facility] ([facility]) [address] [facility], [place], [address], 07/29/2023 11:20:08 07/28/19 24 07/29/2023 CBC WITH DIFFE RENTI AL/PL ATELE T eos 2 % notest ab. Not Available [facility] ([facility]) [address] [facility], [place], [address], 07/29/2023 11:20:08 07/28/19 24 07/29/2023 CBC WITH DIFFE RENTI AL/PL ATELE T basos 1 % notest ab. Not Available [facility] ([facility]) [address] [facility], [place], [address], 07/29/2023 11:20:08 07/28/19 24 07/29/2023 CBC WITH DIFFE RENTI AL/PL ATELE T neutrophils (absolute) 2.9 x10e3 /uL 1.4-7. 0 Not Available [facility] ([facility]) [address] [facility], [place], [address], 07/29/2023 11:20:08 07/28/19 24 07/29/2023 CBC WITH DIFFE RENTI AL/PL ATELE T lymphs (absolute) 1.1 x10e3 /uL 0.7-3. 1 Not Available [facility] ([facility]) [address] [facility], [place], [address], 07/29/2023 11:20:08 07/28/19 24 07/29/2023 CBC WITH DIFFE RENTI AL/PL ATELE T monocytes(ab solute) 0.5 x10e3 /uL 0.1-0. 9 Not Available [facility] ([facility]) [address] [facility], [place], [address], 07/29/2023 11:20:08 07/28/19 24 07/29/2023 CBC WITH DIFFE RENTI AL/PL ATELE T eos (absolute) 0.1 x10e3 /uL 0.0-0. 4 Not Available [facility] ([facility]) [address] [facility], [place], [address], 07/29/2023 11:20:08 07/28/19 24 07/29/2023 CBC WITH DIFFE RENTI AL/PL ATELE T baso (absolute) 0.0 x10e3 /uL 0.0-0. 2 Not Available [facility] ([facility]) [address] [place], [address], 07/29/2023 11:20:08 07/28/19 24 07/29/2023 CBC WITH DIFFE RENTI AL/PL ATELE T immature granulocytes 0 % notest ab. Not Available [facility] ([facility]) [address] [facility], [place], [address], 07/29/2023 11:20:08 07/28/19 24 07/29/2023 CBC WITH DIFFE RENTI AL/PL ATELE T immature grans (abs) 0.0 x10e3 /uL 0.0-0. 1 Not Available [facility] ([facility]) [address] [place], [address], 07/29/2023 11:20:08 08/11/19 24 08/12/2023 B-TYP E NATRI URETI C PEPTI DE B-type natriuretic peptide 28.9 pg/mL 0.0-10 0.0 Sieme ns ADVIA [facility] XP metho dolog y Not Available [facility] ([facility]) [address] [facility] [place], [address], 08/12/2023 10:12:42 08/11/19 24 08/12/2023 COMP. METAB OLIC PANEL (14) glucose 128 mg/dL 70-99 above high normal Not Available [facility] ([facility]) [address] [facility] [place], [address], 08/12/2023 10:12:42 08/11/19 24 08/12/2023 COMP. METAB OLIC PANEL (14) BUN 14 mg/dL 8-27 Not Available [facility] ([facility]) [address] [facility] [place], [address], 08/12/2023 10:12:42 08/11/19 24 08/12/2023 COMP. METAB OLIC PANEL (14) creatinine 0.69 mg/dL 0.76-1 .27 below low normal Not Available [facility] ([facility]) [address] [facility] [place], [address], 08/12/2023 10:12:42 08/11/19 24 08/12/2023 COMP. METAB OLIC PANEL (14) eGFR 101 mL/mi n/1.7 3 >59 Not Available [facility] ([facility]) [address] [facility] [place], [address], 08/12/2023 10:12:42 08/11/19 24 08/12/2023 COMP. METAB OLIC PANEL (14) BUN/creatini ne ratio 20 10-24 Not Available [facility] ([facility]) [address] [facility] [place], [address], 08/12/2023 10:12:42 08/11/19 24 08/12/2023 COMP. METAB OLIC PANEL (14) sodium 145 mmol/ L 134-14 4 above high normal Not Available [facility] ([facility]) [address] [place], [address], 08/12/2023 10:12:42 08/11/19 24 08/12/2023 COMP. METAB OLIC PANEL (14) potassium 4.4 mmol/ L 3.5-5. 2 Not Available [facility] ([facility]) [address] [facility] [place], [address], 08/12/2023 10:12:42 08/11/19 24 08/12/2023 COMP. METAB OLIC PANEL (14) chloride 106 mmol/ L 96-106 Not Available [facility] ([facility]) [address] [facility], [place], [address], 08/12/2023 10:12:42 08/11/19 24 08/12/2023 COMP. METAB OLIC PANEL (14) carbon dioxide, total 26 mmol/ L 20-29 Not Available [facility] ([facility]) [address] [facility], [place], [address], 08/12/2023 10:12:42 08/11/19 24 08/12/2023 COMP. METAB OLIC PANEL (14) calcium 9.4 mg/dL 8.6-10 .2 Not Available [facility] ([facility]) [address] [facility] [place], [address], 08/12/2023 10:12:42 08/11/19 24 08/12/2023 COMP. METAB OLIC PANEL (14) protein, total 6.7 g/dL 6.0-8. 5 Not Available [facility] ([facility]) [address] [facility] [place], [address], 08/12/2023 10:12:42 08/11/19 24 08/12/2023 COMP. METAB OLIC PANEL (14) albumin 4.2 g/dL 3.9-4. 9 Not Available [facility] ([facility]) [address] [facility], [place], [address], 08/12/2023 10:12:42 08/11/19 24 08/12/2023 COMP. METAB OLIC PANEL (14) globulin, total 2.5 g/dL 1.5-4. 5 Not Available [facility] ([facility]) [address] [place], [address], 08/12/2023 10:12:42 08/11/19 24 08/12/2023 COMP. METAB OLIC PANEL (14) A/G ratio 1.7 1.2-2. 2 Not Available [facility] ([facility]) [address] [place], [address], 08/12/2023 10:12:42 08/11/19 24 08/12/2023 COMP. METAB OLIC PANEL (14) bilirubin, total 0.4 mg/dL 0.0-1. 2 Not Available [facility] ([facility]) [address] [place], [address], 08/12/2023 10:12:42 08/11/19 24 08/12/2023 COMP. METAB OLIC PANEL (14) alkaline phosphatase 96 IU/L 44-121 Not Available [facility] [address] [place], [address], 08/12/2023 10:12:42 08/11/19 24 08/12/2023 COMP. METAB OLIC PANEL (14) AST (SGOT) 24 IU/L 0-40 Not Available [facility] ([facility]) [address] [place], [address], 08/12/2023 10:12:42 08/11/19 24 08/12/2023 COMP. METAB OLIC PANEL (14) ALT (SGPT) 19 IU/L 0-44 Not Available [facility] ([facility]) [address] [place], [address], 08/12/2023 10:12:42 08/11/19 24 08/11/2023 HbA1c (hemo globi n A1c), blood HbA1c 6.1% Not Available In-Office Order Internal Use Only DO Not Attach Compendium DO Not Attach Compendium, Do Not Delete/merge, [id number] 08/11/2023 12:17:13 11/10/19 24 11/11/2023 ALBUM IN/CR EATIN INE RATIO ,URIN E creatinine, urine 138.3 mg/dL notest ab. Not Available [facility] ([facility]) [address] [place], [address], 11/11/2023 13:11:30 11/10/19 24 11/11/2023 ALBUM IN/CR EATIN INE RATIO ,URIN E albumin, urine 32.2 ug/mL notest ab. Not Available [facility] ([facility]) [address] [place], [address], 11/11/2023 13:11:30 11/10/19 24 11/11/2023 ALBUM IN/CR EATIN INE RATIO ,URIN E alb/creat ratio 23 mg/g_ creat 0-29 Dang l: 0 - 29 Moder ately incre ased: 30 - 300 Sever deana incre ased: >300 Not Available [facility] ([facility]) [address] [place], [address], 11/11/2023 13:11:30 11/10/19 24 11/11/2023 LIPID PANEL cholesterol, total 101 mg/dL 100-19 9 Not Available [facility] ([facility]) [address] [place], [address], 11/11/2023 13:11:31 11/10/19 24 11/11/2023 LIPID PANEL triglyceride s 93 mg/dL 0-149 Not Available [facility] [address] [place], [address], 11/11/2023 13:11:31 11/10/19 24 11/11/2023 LIPID PANEL HDL cholesterol 37 mg/dL >39 below low normal Not Available [facility] ([facility]) [address] [place], [address], 11/11/2023 13:11:31 11/10/19 24 11/11/2023 LIPID PANEL VLDL cholesterol arjun 18 mg/dL 5-40 Not Available [facility]) [address] [facility], [place], [address], 11/11/2023 13:11:31 11/10/19 24 11/11/2023 LIPID PANEL LDL chol calc ([facility]) 46 mg/dL 0-99 Not Available [facility] [address] [facility], [place], [address], 11/11/2023 13:11:31 11/10/19 24 11/11/2023 COMP. METAB OLIC PANEL (14) glucose 107 mg/dL 70-99 above high normal Not Available [facility] ([facility]) [address] [facility], [place], [address], 11/11/2023 13:11:31 11/10/19 24 11/11/2023 COMP. METAB OLIC PANEL (14) BUN 11 mg/dL 8-27 Not Available [facility] ([facility]) [address] [facility], [place], [address], 11/11/2023 13:11:31 11/10/19 24 11/11/2023 COMP. METAB OLIC PANEL (14) creatinine 0.79 mg/dL 0.76-1 .27 Not Available [facility] ([facility]) [address] [facility], [place], [address], 11/11/2023 13:11:31 11/10/19 24 11/11/2023 COMP. METAB OLIC PANEL (14) eGFR 97 mL/mi n/1.7 3 >59 Not Available [facility] ([facility]) [address] [facility], [place], [address], 11/11/2023 13:11:31 11/10/19 24 11/11/2023 COMP. METAB OLIC PANEL (14) BUN/creatini ne ratio 14 10-24 Not Available [facility] ([facility]) [address] [place], [address], 11/11/2023 13:11:31 11/10/19 24 11/11/2023 COMP. METAB OLIC PANEL (14) sodium 147 mmol/ L 134-14 4 above high normal Not Available [facility] ([facility]) [address] [place], [address], 11/11/2023 13:11:31 11/10/19 24 11/11/2023 COMP. METAB OLIC PANEL (14) potassium 3.8 mmol/ L 3.5-5. 2 Not Available [facility] ([facility]) [address], [place], [address], 11/11/2023 13:11:31 11/10/19 24 11/11/2023 COMP. METAB OLIC PANEL (14) chloride 106 mmol/ L 96-106 Not Available [facility] ([facility]) [address] [facility] [place], [address], 11/11/2023 13:11:31 11/10/19 24 11/11/2023 COMP. METAB OLIC PANEL (14) carbon dioxide, total 25 mmol/ L 20-29 Not Available [facility] ([facility]) [address] [facility] [place], [address], 11/11/2023 13:11:31 11/10/19 24 11/11/2023 COMP. METAB OLIC PANEL (14) calcium 8.9 mg/dL 8.6-10 .2 Not Available [facility] ([facility]) [address] [place], [address], 11/11/2023 13:11:31 11/10/19 24 11/11/2023 COMP. METAB OLIC PANEL (14) protein, total 6.3 g/dL 6.0-8. 5 Not Available [facility] ([facility]) [address] [place], [address], 11/11/2023 13:11:31 11/10/19 24 11/11/2023 COMP. METAB OLIC PANEL (14) albumin 4.0 g/dL 3.9-4. 9 Not Available [facility] ([facility]) [address] [place], [address], 11/11/2023 13:11:31 11/10/19 24 11/11/2023 COMP. METAB OLIC PANEL (14) globulin, total 2.3 g/dL 1.5-4. 5 Not Available [facility] ([facility]) [address] [place], [address], 11/11/2023 13:11:31 11/10/19 24 11/11/2023 COMP. METAB OLIC PANEL (14) bilirubin, total 0.5 mg/dL 0.0-1. 2 Not Available [facility] ([facility]) [address] [place], [address], 11/11/2023 13:11:31 11/10/19 24 11/11/2023 COMP. METAB OLIC PANEL (14) alkaline phosphatase 93 IU/L 44-121 Not Available [facility] ([facility]) [address] [place], [address], 11/11/2023 13:11:31 11/10/19 24 11/11/2023 COMP. METAB OLIC PANEL (14) AST (SGOT) 19 IU/L 0-40 Not Available [facility] ([facility]) [address] [place], [address], 11/11/2023 13:11:31 11/10/19 24 11/11/2023 COMP. METAB OLIC PANEL (14) ALT (SGPT) 16 IU/L 0-44 Not Available [facility] ([facility]) [address] [place], [address], 11/11/2023 13:11:31 11/10/19 24 11/11/2023 MICRO SCOPI C EXAMI NATIO N WBC 0-5 /hpf 0-5 Not Available [facility] ([facility]) [address] [facility], [place], [address], 11/11/2023 13:11:32 11/10/19 24 11/11/2023 MICRO SCOPI C EXAMI NATIO N RBC 0-2 /hpf 0-2 Not Available [facility] ([facility]) [address] [facility], [place], [address], 11/11/2023 13:11:32 11/10/19 24 11/11/2023 MICRO SCOPI C EXAMI NATIO N epithelial cells (non renal) 0-10 /hpf 0-10 Not Available [facility] ([facility]) [address] [facility], [place], [address], 11/11/2023 13:11:32 11/10/19 24 11/11/2023 MICRO SCOPI C EXAMI NATIO N casts NONE SEEN /lpf nonese en Not Available [facility] ([facility]) [address] [facility], [place], [address], 11/11/2023 13:11:32 11/10/19 24 11/11/2023 MICRO SCOPI C EXAMI NATIO N crystals PRESEN T n/a abnormal Not Available [facility] ([facility]) [address] [facility], [place], [address], 11/11/2023 13:11:32 11/10/19 24 11/11/2023 MICRO SCOPI C EXAMI NATIO N crystal type CALCIU M OXALAT E Not Available [facility] ([facility]) [address] [facility], [place], [address], 11/11/2023 13:11:32 11/10/19 24 11/11/2023 MICRO SCOPI C EXAMI NATIO N bacteria NONE SEEN nonese en/few Not Available [facility] ([facility]) [address] [facility], [place], [address], 11/11/2023 13:11:32 11/10/19 24 11/11/2023 HEMOG LOBIN A1C hemoglobin A1C 6.1 % 4.8-5. 6 above high normal Predi abete s: 5.7 - 6.4 Diabe nghia: >6.4 Glyce roxana contr ol for adult s with diabe nghia: <7.0 Not Available [facility] ([facility]) [address] [facility], [place], [address], 11/11/2023 13:11:32 11/10/19 24 11/11/2023 TSH TSH 0.669 uIU/m L 0.450- 4.500 Not Available [facility] ([facility]) [address] [facility], [place], [address], 11/11/2023 13:11:33 11/10/19 24 11/11/2023 CBC WITH DIFFE RENTI AL/PL ATELE T WBC 4.9 x10e3 /uL 3.4-10 .8 Not Available [facility] ([facility]) [address] [facility], [place], [address], 11/11/2023 13:11:34 11/10/19 24 11/11/2023 CBC WITH DIFFE RENTI AL/PL ATELE T RBC 4.24 x10e6 /uL 4.14-5 .80 Not Available [facility] ([facility]) [address] [place], [address], 11/11/2023 13:11:34 11/10/19 24 11/11/2023 CBC WITH DIFFE RENTI AL/PL ATELE T hemoglobin 13.9 g/dL 13.0-1 7.7 Not Available [facility] ([facility]) [address] [facility], [place], [address], 11/11/2023 13:11:34 11/10/19 24 11/11/2023 CBC WITH DIFFE RENTI AL/PL ATELE T hematocrit 42.9 % 37.5-5 1.0 Not Available [facility] ([facility]) [address] [facility], [place], [address], 11/11/2023 13:11:34 11/10/19 24 11/11/2023 CBC WITH DIFFE RENTI AL/PL ATELE T MCV 101 fL 79-97 above high normal Not Available [facility] ([facility]) [address] [facility], [place], [address], 11/11/2023 13:11:34 11/10/19 24 11/11/2023 CBC WITH DIFFE RENTI AL/PL ATELE T MCH 32.8 pg 26.6-3 3.0 Not Available [facility] ([facility]) [address] [facility], [place], [address], 11/11/2023 13:11:34 11/10/19 24 11/11/2023 CBC WITH DIFFE RENTI AL/PL ATELE T MCHC 32.4 g/dL 31.5-3 5.7 Not Available [facility] ([facility]) [address] [facility], [place], [address], 11/11/2023 13:11:34 11/10/19 24 11/11/2023 CBC WITH DIFFE RENTI AL/PL ATELE T RDW 13.8 % 11.6-1 5.4 Not Available [facility] ([facility]) [address] [facility], [place], [address], 11/11/2023 13:11:34 11/10/19 24 11/11/2023 CBC WITH DIFFE RENTI AL/PL ATELE T platelets 218 x10e3 /uL 150-45 0 Not Available [facility] ([facility]) [address] [facility], [place], [address], 11/11/2023 13:11:34 11/10/19 24 11/11/2023 CBC WITH DIFFE RENTI AL/PL ATELE T neutrophils 68 % notest ab. Not Available [facility] ([facility]) [address] [facility], [place], [address], 11/11/2023 13:11:34 11/10/19 24 11/11/2023 CBC WITH DIFFE RENTI AL/PL ATELE T lymphs 21 % notest ab. Not Available [facility] ([facility]) [address] [facility], [place], [address], 11/11/2023 13:11:34 11/10/19 24 11/11/2023 CBC WITH DIFFE RENTI AL/PL ATELE T monocytes 9 % notest ab. Not Available [facility] ([facility]) [address] [facility], [place], [address], 11/11/2023 13:11:34 11/10/19 24 11/11/2023 CBC WITH DIFFE RENTI AL/PL ATELE T eos 1 % notest ab. Not Available [facility] ([facility]) [address] [facility], [place], [address], 11/11/2023 13:11:34 11/10/19 24 11/11/2023 CBC WITH DIFFE RENTI AL/PL ATELE T basos 1 % notest ab. Not Available [facility] ([facility]) [address] [facility], [place], [address], 11/11/2023 13:11:34 11/10/19 24 11/11/2023 CBC WITH DIFFE RENTI AL/PL ATELE T neutrophils (absolute) 3.3 x10e3 /uL 1.4-7. 0 Not Available [facility] ([facility]) [address] [facility], [place], [address], 11/11/2023 13:11:34 11/10/19 24 11/11/2023 CBC WITH DIFFE RENTI AL/PL ATELE T lymphs (absolute) 1.0 x10e3 /uL 0.7-3. 1 Not Available [facility] ([facility]) [address] [facility], [place], [address], 11/11/2023 13:11:34 11/10/19 24 11/11/2023 CBC WITH DIFFE RENTI AL/PL ATELE T monocytes(ab solute) 0.4 x10e3 /uL 0.1-0. 9 Not Available [facility] ([facility]) [address] [facility], [place], [address], 11/11/2023 13:11:34 11/10/19 24 11/11/2023 CBC WITH DIFFE RENTI AL/PL ATELE T eos (absolute) 0.1 x10e3 /uL 0.0-0. 4 Not Available [facility] ([facility]) [address] [facility], [place], [address], 11/11/2023 13:11:34 11/10/19 24 11/11/2023 CBC WITH DIFFE RENTI AL/PL ATELE T baso (absolute) 0.0 x10e3 /uL 0.0-0. 2 Not Available [facility] ([facility]) [address] [facility], [place], [address], 11/11/2023 13:11:34 11/10/19 24 11/11/2023 CBC WITH DIFFE RENTI AL/PL ATELE T immature granulocytes 0 % notest ab. Not Available [facility] ([facility]) [address] [facility], [place], [address], 11/11/2023 13:11:34 11/10/19 24 11/11/2023 CBC WITH DIFFE RENTI AL/PL ATELE T immature grans (abs) 0.0 x10e3 /uL 0.0-0. 1 Not Available [facility] ([facility]) [address] [facility], [place], [address], 11/11/2023 13:11:34 11/10/19 24 11/11/2023 TRIIO DOTHY JUAN E (T3), FREE triiodothyro nine (T3), free 2.8 pg/mL 2.0-4. 4 Not Available [facility] ([facility]) [address] [facility], [place], [address], 11/11/2023 13:11:34 11/10/19 24 11/11/2023 T4,FR EE(DI RECT) T4,free(dire ct) 1.08 NG/dL 0.82-1 .77 Not Available [facility] ([facility]) [address] [facility], [place], [address], 11/11/2023 13:11:35 08/23/19 24 08/19/2023 US, echoc ardio gram [facility]ion [facility] [address] [place], [address], 08/24/2023 14:03:42 11/26/19 24 11/26/2023 US, [facility], [facility] mity No observ ation record ed. [facility] [address] [place], [address], 12/03/2023 10:20:34 Result Notes None recorded. Problems Name Problem SNOMED Code Status Onset Date Resolution Date Notes Provider Name and Address Organization Details Recorded Time Type 2 diabetes mellitus 90376100 Active 2023 WENDY [place], [place] - [facility] 16:56:58 Essential hypertension 98284920 Active [address] [place] null, [place] - [facility] 16:56:59 Obesity 943901276 Active 2023 Jennifer Perez MD Attn: Miguel barros,[address] [facility], [place], [address], [place] - [facility] 4 21:10:35 Hyperlipidemia 16526070 Active 2023 Jennifer Perez MD Attn: Miguel barros,[address], [place], [address], [facility] - [facility] 4 21:10:37 Anxiety 81562942 Active 2023 Jennifer Perez MD Attn: Miguel barros,[address], [place], [address], [place] - [facility] 4 21:10:49 Edema of lower extremity 575533170 Active [address] [place] null, [place] - [facility] 4 11:45:25 Lymphedema of lower extremity 624857730 Active 2023 Jennifer Perez MD Attn: Miguel barros,[address], [place], [address], [facility] - [facility] 4 22:34:54 Problem Notes None recorded. Procedures Surgical History Date Name Laterality Status Provider Name and Address Organization Details Recorded Time Eye Surgery completed Karen subramanian [place] - [facility] 07/07/2023 16:07:39 Imaging Results Imaging Date Name Status LastModified by Organization Details LastModified Time 08/19/2023 US, echocardiogram completed [facility] [address] [place], [address], 08/24/2023 14:03:42 11/26/2023 US, duplex, venous, lower extremity completed [facility] [address] [place], [address], 12/03/2023 10:20:34 Procedure Notes None recorded. Medical Equipment None Reported. Allergies No known drug allergies Medications Name Sig Start Date Stop Date Status Note LastModified by Organization Details LastModified Time metformin 500 mg tablet take 1 tablet by mouth every day 2023 active Not Available Not Available Not Avai lable prednisone 20 mg tablet TAKE 2 TABLETS BY MOUTH EVERY DAY FOR 5 DAYS 02/08 completed Not Available Not Available Not Available sertraline 100 mg tablet TAKE 1 AND 1/2 TABLETS BY MOUTH EVERY DAY 2023 active Not Available Not Available Not Avai lable ciprofloxaci n 500 mg tablet TAKE 1 TABLET BY MOUTH EVERY 12 HOURS FOR 7 DAYS 02/08 completed Not Available Not Available Not Available terbinafine HCl 250 mg tablet TAKE 1 TABLET BY MOUTH EVERY DAY active Not Available Not Available No t Available furosemide 20 mg tablet TAKE 1 TABLET BY MOUTH EVERY DAY active Not Available Not Available No t Available doxycycline hyclate 100 mg tablet TAKE 1 TABLET BY MOUTH TWICE DAILY FOR 5 DAYS 02/08 completed Not Available Not Available Not Available rosuvastatin 5 mg tablet take 1 tablet by mouth every day 2023 active Not Available Not Available Not Avai lable Vitals Date Recorded Body height Provider Name an d Address Organization Details Last Updated DateTime 07/07/2023 170.18 cm Karen Gomez MA [facility] 2023 16:02:00 Date Recorded Body mass index (BMI) Body weight Provider Name and Address Organization Details Last Updated DateTime 07/07/2023 47.8 kg/m2 999175.67 g Karen Gomez MA [facility] 07/07/2023 16:02:14 Date Recorded Body temperature Provider Name a nd Address Organization Details Last Updated DateTime 07/07/2023 98.5 [degF] WENDY Flores [facility] 07/07/2023 16:12:03 Date Recorded Oxygen saturation Oxygen saturation in Arterial blood by Pulse oximetry Provider Name and Address Organization Details Last Updated DateTime 07/07/2023 97 % 97 % WENDY Flores [facility] 07/07/2023 16:12:49 Date Recorded Heart rate Provider Name an d Address Organization Details Last Updated DateTime 07/07/2023 62 /min WENDY Flores [facility] 2023 16:12:51 Date Recorded Body height Provider Name an d Address Organization Details Last Updated DateTime 08/11/2023 170.18 cm WENDY Dill [facility] 08/10 11:20:21 Date Recorded Body mass index (BMI) Body weight Provider Name and Address Organization Details Last Updated DateTime 08/11/2023 44.9 kg/m2 854525.29 g WENDY Dill [facility] 08/11/2023 11:21:52 Date Recorded Heart rate Provider Name an d Address Organization Details Last Updated DateTime 08/11/2023 68 /min Nataly Butler MA [facility] 08/10 11:22:27 Date Recorded Oxygen saturation Oxygen saturation in Arterial blood by Pulse oximetry Provider Name and Address Organization Details Last Updated DateTime 08/11/2023 91 % 91 % Nataly Btuler MA [facility] 08/11/2023 11:22:29 Date Recorded Body height Provider Name an d Address Organization Details Last Updated DateTime 11/10/2023 170.18 cm Edouard Balderrama MA [facility] 11/10/2023 15:18:36 Date Recorded Body mass index (BMI) Body weight Provider Name and Address Organization Details Last Updated DateTime 11/10/2023 44.6 kg/m2 729366.83 g Edouard Balderrama MA [facility] 11/10/2023 15:18:47 Date Recorded Heart rate Provider Name an d Address Organization Details Last Updated DateTime 11/10/2023 56 /min Edouard Balderrama MA [facility] 10/12 15:23:03 Date Recorded Oxygen saturation Oxygen saturation in Arterial blood by Pulse oximetry Provider Name and Address Organization Details Last Updated DateTime 11/10/2023 95 % 95 % Edouard Balderrama MA [facility] 11/10/2023 15:23:05 Date Recorded Body height Provider Name an d Address Organization Details Last Updated DateTime 11/17/2023 170.18 cm Sera Vela [facility] 14:52:16 Date Recorded Body mass index (BMI) Body weight Provider Name and Address Organization Details Last Updated DateTime 11/17/2023 44.8 kg/m2 739064.78 g Sera Vela MA [facility] 11/17/2023 14:55:13 Date Recorded Heart rate Provider Name an d Address Organization Details Last Updated DateTime 11/17/2023 56 /min Sera Vela MA [facility] 14:56:01 Date Recorded Oxygen saturation Oxygen saturation in Arterial blood by Pulse oximetry Provider Name and Address Organization Details Last Updated DateTime 11/17/2023 96 % 96 % WENDY Peñaloza - [facility] 11/17/2023 14:56:05 Date Recorded Pain severity - 0-10 verbal numeric rating [Score] - Reported Provider Name and Address Organization Details Last Updated DateTime 11/17/2023 0 Jocelyne Hernandez [facility] 11/17/2023 14:59:37 Date Recorded Body height Provider Name an d Address Organization Details Last Updated DateTime 02/09/2024 170.18 [facility] 15:10:36 Date Recorded Body mass index (BMI) Body weight Provider Name and Address Organization Details Last Updated DateTime 02/09/2024 45.1 kg/m2 803987.24 g Juliet [facility] 15:14:27 Date Recorded Heart rate Provider Name an d Address Organization Details Last Updated DateTime 02/09/2024 56 /min Juliet [facility] 02/09/2024 15:40:19 Date Recorded Oxygen saturation Oxygen saturation in Arterial blood by Pulse oximetry Provider Name and Address Organization Details Last Updated DateTime 02/09/2024 100 % 100 % Juliet [facility] 02/08 15:38:40 Date Recorded Systolic blood pressure Diastolic blood pressure Provider Name and Address Organization Details Last Updated DateTime 07/07/2023 118 mm[Hg] 82 mm[Hg] Karen Gomez MA [facility] 07/07/2023 16:14:02 Date Recorded Systolic blood pressure Diastolic blood pressure Provider Name and Address Organization Details Last Updated DateTime 08/11/2023 116 mm[Hg] 76 mm[Hg] Nataly Butler MA [facility] 08/11/2023 11:24:18 Date Recorded Systolic blood pressure Diastolic blood pressure Provider Name and Address Organization Details Last Updated DateTime 11/10/2023 122 mm[Hg] 68 mm[Hg] Edouard Balderrama MA [facility] 11/10/2023 15:24:54 Date Recorded Systolic blood pressure Diastolic blood pressure Provider Name and Address Organization Details Last Updated DateTime 11/17/2023 124 mm[Hg] 68 mm[Hg] Sera Vela MA [facility] 11/17/2023 14:57:23 Date Recorded Systolic blood pressure Diastolic blood pressure Provider Name and Address Organization Details Last Updated DateTime 02/09/2024 110 mm[Hg] 68 mm[Hg] Juliet Hazel [place] [facility] 01/12 15:14:47 Social History Question Answer Notes LastModified by Organizat ion Details LastModified Time Tobacco Smoking Status Never Smoker Karen Gomez [place], [place] [facility] 07/07/2023 16:06:49 Do You Have An Advance Directive? No Information not available 11/17/2023 What Is Your Level Of Alcohol Consumption? Occasional Information not available 07/07/2023 Are You Blind Or Do You Have Difficulty Seeing? No Glasses & Cataracts Information not available 11/17/2023 What Is Your Level Of Caffeine Consumption? Moderate Information not available 07/07/2023 In The 14 Days Before Symptom Onset, Have You Had Close Contact With A Laboratory-confi rmed COVID-19 While That Case Was Ill? No Information not available 02/09/2024 In The 14 Days Before Symptom Onset, Have You Had Close Contact With A Person Who Is Under Investigation For COVID-19 While That Person Was Ill? No Information not available 02/09/2024 Have You Been To An Area Known To Be High Risk For COVID-19? No Information not available 02/09/2024 Are You Currently Employed? No Information not available 07/07/2023 Are You Deaf Or Do You Have Serious Difficulty Hearing? No Information not available 07/07/2023 What Type Of Diet Are You Following? REGULAR Information not available 07/07/2023 What Is The Highest Grade Or Level Of School You Have Completed Or The Highest Degree You Have Received? [id number] Information not available 11/17/2023 Are There Any Guns Present In Your Home? No Information not available 11/17/2023 In The Past 7 Days, How Much Pain Have You [place]? None Information not available 11/17/2023 In General, Would You Say You Health Is: Good Information not available 11/17/2023 How Would You Describe The Condition Of Your Mouth And Teeth- Including False Teeth Or Dentures? Good Information not available 11/17/2023 Each Night, How Many Hours Of Sleep Do You Get? 8 Information not available 11/17/2023 Has Anyone Ever Told You That You Snore? No CPAP Information not available 11/17/2023 In The Past 7 Days, How Often Have You [place] Sleepy In The Daytime? Rarely Information not available 11/17/2023 # Alcohol Drinks Per Week 0 Information not available 11/17/2023 What Was The Date Of Your Most Recent Tobacco Screening? 02/09/2024 Information not available 02/09/2024 What Is Your Relationship Status? Single Information not available 07/07/2023 Do You Use Your Seat Belt Or Car Seat Routinely? Yes Information not available 07/07/2023 Do You Have Smoke And Carbon Monoxide Detectors In Your Home? Yes Information not available 07/07/2023 Do You Feel Stressed (tense, Restless, Nervous, Or Anxious, Or Unable To Sleep At Night)? [id number] Information not available 11/17/2023 Do You Use Any Illicit Or Recreational Drugs? No Information not available 07/07/2023 Do You Use Sunscreen Routinely? Yes Information not available 07/07/2023 Has Tobacco Cessation Counseling Been Provided? No Information not available 11/17/2023 Do You Or Have You Ever Used Any Other Forms Of Tobacco Or Nicotine? No Information not available 07/07/2023 Sex: Male Functional Status Question Answer Note LastModified by Organization D etails LastModified Time Are you able to care for yourself? Yes Information n ot available 07/07/2023 What is your exercise level? None Information not available 07/07/2023 Mental Status None recorded. Family History Relationship Description Onset Age of this Age Resolved Age Notes LastModified by Organization Details LastModified Time Father Alcohol abuse 70 [email or web address] Not available 06/11 16:04:55 Father Chronic obstructive pulmonary disease Not available 2023 14:36:30 Father Diverticulit is Not available 2023 14:36:42 Brother Alcohol abuse 78 [email or web address] Not available 06/11 16:05:37 Brother Malignant tumor of pharynx 78 [email or web address] Not available 06/11 16:06:08 Brother Obstructive sleep apnea syndrome Not available 2023 14:36:00 Sister Alcohol abuse [email or web address] Not available 06/11 16:05:12 Sister Malignant tumor of pharynx Not available 2023 14:36:05 Mother Diabetes mellitus Not available 2023 14:35:36 Medical History Condition Response Coronary Artery Disease N Other N Atrial Fibrillation N High Blood Pressure Y Thyroid Problems N Kidney or Bladder Problems N Depression Y COPD N Blood Clots N GI Problems Y Have you had a mammogram in the last yea r? N Skin Problems N Anemia N Heart Attack ([place]) N Diabetes Y Anxiety Disorder Y Muscle, Joint, or Bone Problems Y Seizures/Epilepsy N Have you had a colonoscopy in the last 1 0 years? Y Acid Reflux (GERD) N Cancer N Stroke N Allergies N Asthma Y Have you had a PSA blood test in the las t year? N High Cholesterol Y Hepatitis N Liver Disease N Headaches N Osteoporosis N Heart Failure N Immunizations Vaccine Type Date Status Note Provider Nam e and Address Organization Details Recorded Time Influenza, high-dose, quadrivalent, PF 3 completed WENDY [place], [place] - [facility] 11/10/2023 15:19:16 COVID-19, mRNA, LNP-S, PF, 100 mcg/0.5mL dose or 50 mcg/0.25mL dose 1 completed WENDY [place], [place] [facility] 11/10/2023 15:19:16 COVID-19, mRNA, LNP-S, PF, 100 mcg/0.5mL dose or 50 mcg/0.25mL dose 1 completed WENDY [place], [place] [facility] 11/10/2023 15:19:16 Pneumococcal conjugate PCV20, polysaccharide [id number] conjugate, adjuvant, PF 3 completed Edouard Balderrama [place], [place] [facility] 11/10/2023 15:19:16 Influenza, split virus, quadrivalent, PF 7 completed Edouard Balderrama [place] [facility] 11/10/2023 15:19:16 Influenza, split virus, quadrivalent, PF 0 completed Edouard Balderrama [place] [facility] 11/10/2023 15:19:16 Influenza, high-dose, trivalent, PF 4 completed Jennifer Perez MD Attn: Accounting,[address] [place], [address], [place] [facility] 02/09/2024 22:34:38 Past Encounters Encounter ID Performer Location Encounter Start Date Encounter Closed Date Diagnosis/Indication Diagnosis SNOMED-CT Code Diagnosis ICD10 Code Diagnosis Note [id number] Jennifer Perez MD [facility] (Adult Med) [address] [place] [phone] 07/07/2023 15:46:49 07/07/2023 16:55:22 Essential hypertension 32910229 I10 Type 2 ivy betes mellitus 74713469 E11.9 Obesity 608788005 E66.9 Hyperlipidemia 71243793 E78.5 Anxiety 59755842 F41.9 [id number] MD [facility] (Adult Med) [address] [place] [phone] 08/11/2023 11:10:27 08/11/2023 12:03:41 Edema of lower extremity 549429720 R60.0 Type 2 ivy betes mellitus 93531132 E11.9 [id number] MD [facility] (Adult Med) [address] [place] [phone] 11/10/2023 15:09:39 11/10/2023 16:09:53 Morbid obesity 817355488 E66.01 Essential hypertension 32463799 I10 Hyperlipidemia 19984141 E78.5 Type 2 ivy betes mellitus 73995562 E11.9 Fatigue 83093150 R53.83 [id number] MD [facility] (Adult Med) [address] [place] [id number] 11/17/2023 14:50:42 11/17/2023 15:12:51 Adult health examination 279411204 Z00.00 Health Risk Assessment collected and reviewed Type 2 ivy betes mellitus 92865979 E11.9 [id number] MD [facility] (Adult Med) [address] [place] [id number] 02/09/2024 15:01:07 02/09/2024 15:56:07 Body mass index 40+ - severely obese 067099441 Z68.42 Morbid obesity 772267847 E66.01 Onychomyco sis of toenails 558970528 B35.1 Polyp of colon 77875711 K63.5 Screening for malignant neoplasm of prostate 206066698 Z12.5 Administra tion of influenza vaccine 07880248 Z23 Essential hypertension 29115124 I10 Hyperlipidemia 05980376 E78.5 Obesity 490862229 E66.9 Type 2 ivy betes mellitus 49572036 E11.9 Lymphedema of lower extremity 602062661 I89.0 Health Concerns Section Related Observation LastModified by Organization Detai ls LastModified Time None Recorded Concern Status LastModified by Organization Details LastModified Time None Recorded Advance Directives Directive N: Payers Encounter Date Sequence Insurance Name Policy Number Policy Christian Covered Member ID Christian Member ID Guarantor Name 07/07/2023 1 [facility] (MEDICARE REPLACEMENT/A DVANTAGE - HMO) [id number] Julio Cesar Shane [address] [id number] Julio Cesar Sterling 08/11/2023 1 [facility] (MEDICARE REPLACEMENT/A DVANTAGE - HMO) [id number] Julio Cesar Shane Box [id number] Julio Cesar Sterling 11/10/2023 1 [facility] (MEDICARE REPLACEMENT/A DVANTAGE - HMO) [id number] Julio Cesar Shane Box [id number] Julio Cesar Sterling 11/17/2023 1 [facility] (MEDICARE REPLACEMENT/A DVANTAGE - HMO) [id number] Julio Cesar Shane Box [id number] Julio Cesar Sterling 02/09/2024 1 [facility] (MEDICARE REPLACEMENT/A DVANTAGE - HMO) [id number] Julio Cesar Shane Box [id number] Julio Cesar Sterling Notes Date Note Type Note Provider Name and Address Organization Details Recorded Time 07/07/2023 text/html Hypertension no headache or dizziness. Diabetes no polyphasia no polydipsia. Obesity trouble losing weight hyperlipidemia try to follow low-fat diet anxiety doing well on sertraline Jennifer Perez MD Attn: Accounting[address] [place], [address], [facility] 07/07/2023 21:11:44 08/11/2023 text/html Acute appointmen t for some swelling in his legs has been going on for a few weeks without chest pain shortness of breath palpitations no clear PND or orthopnea no prolonged car trips or airplane trips Jennifer Perez MD Attn: Accounting,[address] [place], [address], [facility] 08/16/2023 23:12:42 11/10/2023 text/html Hypertension no headache or dizziness. Diabetes no polyphasia no polydipsia. Obesity trouble losing weight hyperlipidemia try to follow low-fat diet anxiety doing well on sertraline. Swelling in the legs maybe a little bit worse some fatigue 0 PND or orthopnea Jennifer Perez MD Attn: Accounting,[address] [place], [address], [facility] 11/12/2023 21:01:01 11/17/2023 text/html MAW 2Reported bypatient.Diet and Nutrition:discussed diet improvement Fracture Risk:no history of fractures; no sudden unexplained fractures Concentration and Memory:no decreased concentrating ability; no memory lapses or loss; does not forget words Speech/Motor difficulties:no speech difficulties; no difficulty expressing formulated concepts; no difficulty with fine manipulative tasks; no difficulty writing/copying; no slowed reaction time; does not knock things over when trying to pick them up Hearing:no loss of hearing Vision:worse both distance and near(bifocals, cataracts) Activities of Daily Living:able to bathe with limited or no assistance; able to contol urination and bowels; able to dress with limited or no assistance; able to feed self with limited or no assistance; able to get out of chair or bed with limited or no assistance; able to groom with limited or no assistance; able to toilet with limited or no assistance Instrumental Activities of Daily Living:able to do house work with limited or no assistance; able to grocery shop with limited or no assistance; able to manage medications with limited or no assistance; able to manage money with limited or no assistance; able to prepare meals with limited or no assistance; able to use the phone with limited or no assistance Falls Risk Assessment:no frequent falls while walking; no fall in the past year; no fall since last visit; no dizziness/vertigo Home Safety:no unsafe mariely hazzards; working smoke/CO detectors; practicing 'safer sex'; no fire arms; good lighting in the home;unsafe stairs(handrail fell down, so patient needs to reinstall);does not have hand bars in the bathroom/shower Jennifer Perez MD Attn: Accounting,[address] [facility], [place], [address], [facility] 11/28/2023 16:48:40 02/09/2024 text/html lymphedema getti ng his legs wrapped doing better. Hypertension no headache or dizziness. Hyperlipidemia he says he is watching his saturated fat. Obesity struggles losing weight diabetes no polyphagia or polydipsia last A1c 6.13 months ago. He would like his toenail fungus treated and he is due for a colonoscopy Jennifer Perez MD Attn: Accounting,[address] [facility], [place], [address], [facility] 02/09/2024 22:38:41
--- OUTSIDE RECORDS SUMMARY | 2024-05-11 01:09 | XMS_ITS | Clinical Summary ---
Author Organization [facility] Address [address] [place] [address] Phone Care Team Providers Care Car Trimmer Name Role Phone Cristiano Perez MD Primary Care Provider [phone] Encounters Date Type Department Care Team Description 05/05/2024 7:00 AM CANDLE WRAPPER Physical Therapy [facility] [address] [place] [address] Cristiano Perez MD Young, Susan E, PT Discharge Disposition: Discharged to home or Selfcare 05/05/2024 Travel 05/04/2024 Telephone [facility] [address] [place] [address] [place] [address] Tiffanie Noe, PT Appointment (Cancelled due to weather) 05/01/2024 10:00 AM CANDLE WRAPPER Physical Therapy [facility] [address] [place] [address] [place] [address] Cristiano Perez MD Robeen, Nancy S, SLEEVE SEPARATOR Lymphedema (Primary Dx); Localized edema; Abnormal gait Discharge Disposition: Discharged to home or Selfcare 05/01/2024 Travel 04/23/2024 Telephone [facility] [address] [place] [address] [place] [phone] Tiffanie Noe, PT Appointment (Cancelled due to car problems) 04/14/2024 Telephone [facility] [address] [place] [address] [place] [address] Tiffanie Noe, PT Appointment (Cancelled on voice mail.) 04/13/2024 10:00 AM CANDLE WRAPPER Physical Therapy [facility] [address] [place] [address] [place] [address] Cristiano Perez MD Young, Susan E, PT Discharge Disposition: Discharged to home or Selfcare 04/10/2024 1:00 PM CANDLE WRAPPER Physical Therapy [facility] at [address], [place] [address] Cristiano Perez MD Young, Susan E, PT Lymphedema (Primary Dx); Localized edema; Abnormal gait Discharge Disposition: Discharged to home or Selfcare 04/10/2024 Plan of Care Documentation [facility] at [address], [place] [address] [place] [address] 04/10/2024 Travel 03/28/2024 9:30 AM CANDLE WRAPPER Physical Therapy [facility] at [address], [place] [address] [place] [address] Cristiano Perez MD Robeen, Nancy S, SLEEVE SEPARATOR Lymphedema (Primary Dx); Localized edema; Abnormal gait Discharge Disposition: Discharged to home or Selfcare 03/28/2024 Travel 03/13/2024 Telephone [facility] [address] [place] [address] [place] [address] Tiffanie Noe, PT Appointment (Cancelled this week's appts) 02/21/2024 7:00 AM CANDLE WRAPPER Physical Therapy [facility] [address] [place] [address] [place] [address] Cristiano Perez MD Young, Susan E, PT Lymphedema (Primary Dx); Localized edema; Abnormal gait Discharge Disposition: Discharged to home or Selfcare 02/21/2024 Travel 02/18/2024 7:00 AM CANDLE WRAPPER Physical Therapy [facility] [address] [address] [place] [address] Cristiano Perez MD Young, Susan E, PT Lymphedema (Primary Dx); Localized edema; Abnormal gait Discharge Disposition: Discharged to home or Selfcare 02/16/2024 10:00 AM CANDLE WRAPPER Physical Therapy [facility] [address] [place] [address] [place] [phone] Cristiano Perez MD Robeen, Nancy S SLEEVE SEPARATOR Lymphedema (Primary Dx); Localized edema; Abnormal gait Discharge Disposition: Discharged to home or Selfcare 02/16/2024 Travel from Last 3 Months Social History Tobacco Use Types Packs/Day Years Used Date Smoking Tobacco: Never Assessed Sex and Gender Information Value Date Recorded Sex Assigned at Not on file Legal Sex Male 4:22 PM CDT Gender Identity Not on file Sexual Orientation Not on file Plan of Treatment Upcoming Encounters Date Type Department Care Team (Late st Contact Info) Description 05/12/2024 8:00 AM CANDLE WRAPPER Physical Therapy [facility] [address] [address] [place] [address] Cristiano Perez MD [address] [place] [address] Char Cosme SLEEVE SEPARATOR [place] 05/15/2024 8:00 AM CANDLE WRAPPER Physical Therapy [facility] [address] [place] [address] [place] [address] Cristiano Perez MD [address] [place] [address] Char Cosme SLEEVE SEPARATOR [place] 05/22/2024 8:00 AM CANDLE WRAPPER Physical Therapy [facility] [address] [place] [address] Cristiano Perez MD [address] [place] [address] Char Cosme S, SLEEVE SEPARATOR [place] Health Maintenance Due Date Last Done Comments Hepatitis C Virus (HCV) Screening 1955 TdaP Immunization 1955 Colonoscopy 2001 Colorectal Cancer Screening 2001 Cologuard 2006 Immunochemical Fecal Occult Blood 2006 Zoster Immunization (1 of 2) 2006 PSA Discussion 2011 SARS-COV-2 Immunization ( season) 2023 08/06/2020, 07/09/2020 Respiratory Syncytial Virus (RSV) Immunization (Adult) (1 - 1-dose 75+ series) 2031 Pneumococcal Immunization (50+ years) Completed 10/05/2022 Influenza Immunization Completed , 02/01/2023, 03/02/2020, Additional history exists Hepatitis B Immunization Aged Out No longer eligible based on patient's age to complete this topic Meningococcal Immunization (ACWY) Aged Out No longer eligible based on patient's age to complete this topic Rotavirus Immunization Aged Out No lo nger eligible based on patient's age to complete this topic Insurance MEDICARE C [facility] Care Teams Car Trimmer Relationship Specialty Start Date End Date Cristiano Perez MD [address] [place] [id number] PCP - General Internal Medicine 12/22/23
[2024-05-11 11:37] VITALS: BP 132/71; PULSE 50; RESP 18; TEMP 36.6; O2SAT 97
[2024-05-11 12:07] LABS: Glucose Point of Care 77 mg/dl (65-105)
[2024-05-11] MEDS: LACTATED RINGERS 1,000 ML 150 ML IV CONT (12:28)
--- NOTE | 2024-05-11 12:28 | P.HP_ITS ---
H&P: HPI History of Present Illness Date/Time: 05/11/24 12:28 Chief Complaint: History of colon polyps Narrative: The patient has a history of colonic polyps, the last colonoscopy was 7 years ago. Review of Systems Review of Systems: All systems reviewed & are unremarkable except as noted in HPI and below REPLACED BY [facility] Past Medical History Medical History (Updated 05/10/24 @ 15:05 by Hiren Painter, ) Bipolar disorder Hyperlipidemia Asthma JOCELYNE (obstructive sleep apnea) Social History Social History Smoking status: Never smoker Alcohol intake: current Alcohol use details: Rarely Substance use type: does not use Living arrangements: alone Meds Home Medications and Allergies Home Medications ?Medication ?Instructions ?Recorded ?Confirmed ?Type albuterol sulfate 90 mcg/actuation 2 inh inhalation Q4-6H PRN 11/11/21 05/03/24 History aerosol inhaler Shortness Of Breath metformin 500 mg tablet 500 mg PO DAILY 11/11/21 05/11/24 History rosuvastatin 5 mg tablet 5 mg PO DAILY 11/11/21 05/11/24 History sertraline 100 mg tablet 100 mg PO DAILY 11/11/21 05/11/24 History ferrous sulfate 325 mg (65 mg 325 mg PO DAILY 05/03/24 05/11/24 History iron) tablet (FeroSul) terbinafine HCl 250 mg tablet 250 mg PO DAILY 05/03/24 05/11/24 History Allergies Allergy/AdvReac Type Severity Reaction Status Date / Time No Known Allergies Allergy Severe NONE Verified 05/11/24 11:36 Vital Signs Vital Signs - 24 hr 05/11/24 11:37 Temperature 97.8 F Pulse Rate 50 L Respiratory Rate 18 Blood Pressure 132/71 Pulse Oximetry 97 Oxygen Delivery Room Air Exam Const: General: cooperative and healthy appearing Resp: Effort & Inspection: normal respiratory effort and able to speak in complete sentences Auscultation: clear to auscultation bilaterally Cardio: Rate: regular rate Rhythm: regular rhythm GI: Inspection: normal to inspection GI Palp: No No hepatosplenomegaly present Auscultation: normal bowel sounds Rectal Exam: deferred Skin: General skin exam: normal color Psych: Appearance: grossly normal Mental Status: mental status grossly normal Assessment and Plan Assessment and plan (1) Colon cancer screening: Code(s): Z12.11 - Encounter for screening for malignant neoplasm of colon Status: Acute Assessment and Plan: The patient is deemed a good candidate for the procedure. Consent signed. Will proceed.
--- NOTE | 2024-05-11 12:32 | P.PNAN_ITS ---
Anes - Initial Pre Proc Eval Procedure: Operation Date: 05/11/24 13:15 Proposed Procedures p Colonoscopy - Nelson Wilson MD Date/Time: 05/11/24 12:32 Surgeon: Nelson Wilson MD Pre Op Diagnosis: Personal HX of colon polyps,poor prep. Patient Data Age: 69 Gender: M Height: 1.7 m Weight: 123.9 kg Last Vital Signs Temp 36.6 C 05/11/24 11:37 Pulse 50 L 05/11/24 11:37 Resp 18 05/11/24 11:37 BP 132/71 05/11/24 11:37 Pulse Ox 97 05/11/24 11:37 O2 Del Method Room Air 05/11/24 11:37 Allergies Allergy/AdvReac Type Severity Reaction Status Date / Time No Known Allergies Allergy Severe NONE Verified 05/11/24 11:36 Home Medications ?Medication ?Instructions ?Recorded ?Confirmed ?Type albuterol sulfate 90 mcg/actuation 2 inh inhalation Q4-6H PRN 11/11/21 05/03/24 History aerosol inhaler Shortness Of Breath metformin 500 mg tablet 500 mg PO DAILY 11/11/21 05/11/24 History rosuvastatin 5 mg tablet 5 mg PO DAILY 11/11/21 05/11/24 History sertraline 100 mg tablet 100 mg PO DAILY 11/11/21 05/11/24 History ferrous sulfate 325 mg (65 mg 325 mg PO DAILY 05/03/24 05/11/24 History iron) tablet (FeroSul) terbinafine HCl 250 mg tablet 250 mg PO DAILY 05/03/24 05/11/24 History Laboratory Tests 05/11/24 12:05 POC Capillary Glucose 77 mg/dl (65-105) Patient hx anesthesia problems: none Family hx anesthesia problems: none Results Review: All pre-operative results and documents have been reviewed as part of the pre- operative evaluation. [facility] Past Medical History Medical History (Updated 05/10/24 @ 15:05 by Hiren Painter DO) Bipolar disorder Hyperlipidemia Asthma JOCELYNE (obstructive sleep apnea) Social History Social History Smoking status: Never smoker Alcohol intake: current Alcohol use details: Rarely Substance use type: does not use Living arrangements: alone Anes - Eval Final PreProcedure Day of Procedure 05/11/24 12:32 Patient weight: morbidly obese Heart: regular rate and rhythm Lungs: clear to auscultation Airway: Mallampati scale class II Neurological: alert and oriented Last oral intake: >/= 8 hours ASA classification: III Emergent: no Anesthetic plan: proceed Anesthesia type and monitoring: general GIVS and standard monitoring Results Review: All pre-operative results and documents have been reviewed as part of the pre- operative evaluation. Informed Consent: The patient's anesthetic plan and its attendant risks and benefits were discussed with the patient/family/POA. Questions were solicited and answers provided to the satisfaction of the patient/family/POA.
[2024-05-11 13:24] VITALS: BP 92/47; PULSE 52; RESP 20; O2SAT 99
[2024-05-11 13:34] VITALS: BP 92/42; PULSE 56; RESP 18; O2SAT 97
[2024-05-11 13:44] VITALS: BP 94/51; PULSE 54; RESP 18; O2SAT 97
== END 2024-05-11 14:33 | disposition home or self-care (01) ==
PROVIDERS: PCP Internal Medicine; Referring Provider Internal Medicine; Visit Provider Internal Medicine Gastroenterology
PROC: 0DJD8ZZ Inspection of Lower Intestinal Tract, Via Natural or Artificial Opening Endoscopic (ICD-10-PCS; CPT 45378; principal; 2024-05-11 13:15)
DX: Z12.11 Encounter for screening for malignant neoplasm of colon (principal); D12.5 Benign neoplasm of sigmoid colon; K57.30 Diverticulosis of large intestine without perforation or abscess without bleeding; Z98.0 Intestinal bypass and anastomosis status; Z90.49 Acquired absence of other specified parts of digestive tract; Z79.899 Other long term (current) drug therapy; E66.01 Morbid (severe) obesity due to excess calories; Z68.41 Body mass index [BMI] 40.0-44.9, adult
CPT/HCPCS: 45385; 82948; 88305; J1596; J2704; J7120

== ENCOUNTER 2024-05-22 15:10 | Outpatient (CLI) | payer MEDICARE, SELFPAY ==
--- NOTE | ~2024-05-22 | XR_ITS ---
Clinical Indication: Chronic cough PA and lateral views of the chest: Comparison: 02/10/2017 Findings: The lungs are clear, without evidence of focal consolidation or pleural effusion. Cardiome diastinal silhouette is within normal limits. Bones and soft tissues are unremarkable. Impression: Normal chest. Reviewed, dictated and finalized at [facility]. [employer] Impression: Normal chest.
--- OUTSIDE RECORDS SUMMARY | 2024-05-22 15:20 | XMS_ITS | Clinical Summary ---
Author Organization [facility] Address [address] [place] [address] Phone Care Team Providers Care Primer Press Operator Name Role Phone Cristiano Perez MD Primary Care Provider [phone] Encounters Date Type Department Care Team Description 05/05/2024 7:00 AM BUILDING STONECUTTER Physical Therapy [facility] [address] [place] [address] Cristiano Perez MD Young, Susan E, PT Discharge Disposition: Discharged to home or Selfcare 05/05/2024 Travel 05/04/2024 Telephone [facility] [address] [place] [address] [place] [address] Tiffanie Noe, PT Appointment (Cancelled due to weather) 05/01/2024 10:00 AM BUILDING STONECUTTER Physical Therapy [facility] [address] [place] [address] [place] [address] Cristiano Perez MD Robeen, Nancy S, CASING RUNNER Lymphedema (Primary Dx); Localized edema; Abnormal gait Discharge Disposition: Discharged to home or Selfcare 05/01/2024 Travel 04/23/2024 Telephone [facility] [address] [place] [address] [place] [address] Tiffanie Noe, PT Appointment (Cancelled due to car problems) 04/14/2024 Telephone [facility] [address] [place] [address] [place] [address] Tiffanie Noe, PT Appointment (Cancelled on voice mail.) 04/13/2024 10:00 AM BUILDING STONECUTTER Physical Therapy [facility] [address] [place] [address] [place] [address] Cristiano Perez MD Young, Susan E, PT Discharge Disposition: Discharged to home or Selfcare 04/10/2024 1:00 PM BUILDING STONECUTTER Physical Therapy [facility] at [address], [place] [address] Cristiano Perez MD Young, Susan E, PT Lymphedema (Primary Dx); Localized edema; Abnormal gait Discharge Disposition: Discharged to home or Selfcare 04/10/2024 Plan of Care Documentation [facility] at [address], [place] [address] [place] [address] 04/10/2024 Travel 03/28/2024 9:30 AM BUILDING STONECUTTER Physical Therapy [facility] at [address], [place] [address] [place] [address] Cristiano Perez MD Robeen, Nancy S, CASING RUNNER Lymphedema (Primary Dx); Localized edema; Abnormal gait Discharge Disposition: Discharged to home or Selfcare 03/28/2024 Travel 03/13/2024 Telephone [facility] [address] [place] [address] [place] [address] Tiffanie Noe, PT Appointment (Cancelled this week's appts) 02/21/2024 7:00 AM BUILDING STONECUTTER Physical Therapy [facility] [address] [place] [address] [place] [address] Cristiano Perez MD Young, Susan E, PT Lymphedema (Primary Dx); Localized edema; Abnormal gait Discharge Disposition: Discharged to home or Selfcare 02/21/2024 Travel from Last 3 Months Social History Tobacco Use Types Packs/Day Years Used Date Smoking Tobacco: Never Assessed Sex and Gender Information Value Date Recorded Sex Assigned at Not on file Legal Sex Male 4:22 PM CDT Gender Identity Not on file Sexual Orientation Not on file Plan of Treatment Health Maintenance Due Date Last Done Comments [...] to complete this topic Insurance MEDICARE C [facility] Care Teams Primer Press Operator Relationship Specialty Start Date End Date Cristiano Perez MD [address] [place] [address] PCP - General Internal Medicine 12/22/23
--- OUTSIDE RECORDS SUMMARY | 2024-05-22 15:20 | XMS_ITS | Data Portability ---
Author Organization [place] [facility] [employer], Main Office Address [address] [place] [id number] Care Team Providers Care Manager Of International Name Role Phone JENNIFER PEREZ Primary Care Provider JENNIFER PEREZ Referring Provider [phone] Assessment Encounter Date Assessment Date Assessment LastModified by Organization Details LastModified Time 06/29/2022 06/29/2022 Follow-up 3 months could Not available 06/29/2022 20:50:01 08/10/2022 08/10/2022 Assessment: Very severe OSAHS, AHI = 47 Iron deficiency Vit B12 deficiency Vit E deficiency Plan: The following were reviewed and explained to the patient: primary care/referral note [facility] split night sleep study 11/19/20 AHI = [...] carrier. Patient will setup an appointment with [facility] for supplies and pressure adjustments. A [...] work ordered Weight reduction Follow-up 4 months [email or web address] Not available 10/06/2022 08:36:33 02/01/2023 02/01/2023 Continue current therapy follow-up 4 months blood work ordered [email or web address] Not available 02/01/2023 20:57:39 02/23/2023 02/23/2023 Assessment: Very severe OSAHS, AHI = 47 Iron deficiency Vit B12 deficiency Vit E deficiency Plan: The following were reviewed and explained to the patient: [facility] split night sleep study 11/19/20 AHI = [...] carrier. Patient will setup an appointment with [facility] for supplies and pressure adjustments. A [...] further management. Follow-up: 6 months, August 2023 [email or web address] Not available 02/23/2023 15:22:34 Plan of Treatment Reminders Order Date Submit Date Provider Last Modified By Organization Details Last Modified Time Details Appointments None recorded. Lab vitamin B12, serum [address] (Lab), [address] [place], [address], 12:54:44 ferritin, serum or plasma [address] (Lab), [address] [place], [address], 12:54:44 vitamin E, serum [address] (Lab), [address] [place], [address], 12:54:44 CMP, serum or plasma 2022 023 [facility] (Lab), [address] [place], [address], 19:06:51 lipid panel, serum 2022 023 [facility] (Lab), [address] [place], [address], 19:06:58 [email or web address] obin, total, blood 2022 023 [facility] (Lab), [address] [place], [address], 3 19:48:41 vitamin B12, serum [email or web address] [facility] (Lab), [address] [place], [address], 4 14:27:05 ferritin, serum or plasma [email or web address] [facility] (Lab), [address] [place], [address], 4 14:27:05 vitamin E, serum [email or web address] [facility] (Lab), [address] [place], [address], 4 14:27:05 Referral None recorded. Procedures None recorded. Surgeries None recorded. Imaging None recorded. Medication Orders cyanocobala min (vit B-12) 1,000 mcg tablet 2022 023 [facility] #87507, [address], [place], [place], [id number], 3 12:09:14 ferrous sulfate 325 mg (65 mg iron) tablet 2022 023 [facility] #59235, [address], [place], [place], [id number], 3 12:09:17 Vitamin C 500 mg tablet 2022 023 [facility] #51442, [address], [place], [place], [id number], 3 12:09:15 vitamin E mixed 200 unit tablet 2022 023 [facility] #94206, [address], [place], [place], [id number], 3 12:09:13 cyanocobala min (vit B-12) 1,000 mcg tablet 2022 023 [email or web address] [facility] #86148, [address], [place], [place], [id number], 3 15:18:29 ferrous sulfate 325 mg (65 mg iron) tablet 2022 023 [facility] #30000, [address], [place], [place], [id number], 3 15:18:23 Vitamin C 500 mg tablet 2022 023 [facility] #78945, [address], [place], [place], [id number], 3 15:18:27 vitamin E 200 unit capsule 2022 023 [facility] #[id number], [address], [place], [place], [id number], 3 15:18:27 Patient TargetsNo targets recorded. Patient Instructions Encounter Date Encounter Id Patient Instructions Last Modified By Organization Details Last Modified Time 10/05/2022 [id number] dementia rating scale-2* [email or web address] Not available 10/06/2022 08:36:54 alcohol misuse* [email or web address] Not available 10/06/2022 08:36:54 depression screening* [email or web address] Not available 10/06/2022 08:36:53 multi-dimensiona l health assessment questionnaire* [email or web address] Not available 10/06/2022 08:36:54 advance care planning: care instructions Not available 10/06/2022 08:36:53 advance directiv es: care instructions [email or web address] Not available 10/06/2022 08:36:54 [place] Advance Directives [email or web address] Not available 10/06/2022 08:36:54 Personalized Hea lt Plan and Screening Recommendations Advance Directives - Do you have one? No Advance Directives - Do we have your [...] 10% of your body weight Physical activity: Need more exercise/physical activity Nutrition: Good Average Fall Risk (screened today): Low Vaccines Pneumococcal: Ordered Recommended today Influenza: Your next one in the fall of this year Chronic Disease Risks Stroke: Low Risk Intermediate Risk I have no recommendations Act nimisha diagnosis, Continue current treatment plan Heart Attack: Low risk Intermediate Risk I have no recommendations Act nimisha diagnosis, Continue current treatment plan Clogging of the Arteries: Low risk Intermediate Risk I have no recommendations Act nimisha diagnosis, Continue current treatment plan Diabetes: Low Risk Intermediate Risk Active diagnosis, Continue current treatment plan Secondary Prevention/Interven tion (detects treatable diseases before they may cause symptoms, disability, or ) Prostate Cancer Screening: Colon Cancer Screening: Colonoscopy Date Screening Last Performed: Eye Disease Screening: Dementia Risk: Low I have no recommendations Depression Screening: Negative Active diagnosis, Continue current treatment plan [email or web address] Not available 10/05/2022 14:48:13 Reason for Referral None Reported. Results Created Date Observation Date Name Description Value Unit Range Abnormal Flag Note LastModifiedBy Organization Detail LastModifiedTime 10/06/19 23 10/05/2022 CBC/C OMPLE TE BLD COUNT W/DIF F white blood cells 3.9 x10'3 /uL 4.2-[address] [facility] (Lab) [address] [place], [address], 10/05/2022 18:35:59 10/06/19 23 10/05/2022 CBC/C OMPLE TE BLD COUNT W/DIF F red blood cells 4.40 x10'6 /uL 4.10-[address] [facility] (Lab) [address] [place], [address], 10/05/2022 18:35:59 10/06/19 23 10/05/2022 CBC/C OMPLE TE BLD COUNT W/DIF F hemoglobin 14.5 g/dL 13.2-[address] [facility] (Lab) [address] [place], [address], 10/05/2022 18:35:59 10/06/19 23 10/05/2022 CBC/C OMPLE TE BLD COUNT W/DIF F hematocrit 44.3 % 39.3-[address] [facility] (Lab) [address] [place], [address], 10/05/2022 18:35:59 10/06/19 23 10/05/2022 CBC/C OMPLE TE BLD COUNT W/DIF F mean red cell volume 100.7 fL 80.0-9 [address] [facility] (Lab) [address] [place], [address], 10/05/2022 18:35:59 10/06/19 23 10/05/2022 CBC/C OMPLE TE BLD COUNT W/DIF F mean red cell hemoglobin 33.0 pg 27.0-[address] [facility] (Lab) [address] [place], [address], 10/05/2022 18:35:59 10/06/19 23 10/05/2022 CBC/C OMPLE TE BLD COUNT W/DIF F mean RBC HGB concentratio n 32.7 g/dL 31.0-[address] [facility] (Lab) [address] [place], [address], 10/05/2022 18:35:59 10/06/19 23 10/05/2022 CBC/C OMPLE TE BLD COUNT W/DIF F red cell distribution width 12.4 % 11.8-[address] [facility] (Lab) [address] [place], [address], 10/05/2022 18:35:59 10/06/19 23 10/05/2022 CBC/C OMPLE TE BLD COUNT W/DIF F platelets 185 x10'3 /uL 150-[address] [facility] (Lab) [address] [place], [address], 10/05/2022 18:35:59 10/06/19 23 10/05/2022 CBC/C OMPLE TE BLD COUNT W/DIF F mean platelet volume 10.2 fL 9.0-[address] [facility] (Lab) [address] [place], [address], 10/05/2022 18:35:59 10/06/19 23 10/05/2022 CBC/C OMPLE TE BLD COUNT W/DIF F neutrophils 67.9 % 39.0-[address] [facility] (Lab) [address] [place], [address], 10/05/2022 18:35:59 10/06/19 23 10/05/2022 CBC/C OMPLE TE BLD COUNT W/DIF F lymphocytes 22.2 % 16.0-[address] [facility] (Lab) [address] [place], [address], 10/05/2022 18:35:59 10/06/19 23 10/05/2022 CBC/C OMPLE TE BLD COUNT W/DIF F monocytes 7.5 % 5.0-[address] [facility] (Lab) [address] [place], [address], 10/05/2022 18:35:59 10/06/19 23 10/05/2022 CBC/C OMPLE TE BLD COUNT W/DIF F eosinophils 1.6 % 1.0-7. [address] [facility] (Lab) [address] [place], [address], 10/05/2022 18:35:59 10/06/19 23 10/05/2022 CBC/C OMPLE TE BLD COUNT W/DIF F basophils 0.5 % 0.0-2. [address] [facility] (Lab) [address] [place], [address], 10/05/2022 18:35:59 10/06/19 23 10/05/2022 CBC/C OMPLE TE BLD COUNT W/DIF F immature granulocytes 0.3 % 0.00-[address] [facility] (Lab) [address] [place], [address], 10/05/2022 18:35:59 10/06/19 23 10/05/2022 CBC/C OMPLE TE BLD COUNT W/DIF F neutrophils, absolute count 2.63 x10'3 /uL 1.5-8. [address] [facility] (Lab) [address] [place], [address], 10/05/2022 18:35:59 10/06/19 23 10/05/2022 CBC/C OMPLE TE BLD COUNT W/DIF F lymphocytes, absolute count 0.86 x10'3 /uL 1.07-[address] [facility] (Lab) [address] [place], [address], 10/05/2022 18:35:59 10/06/19 23 10/05/2022 CBC/C OMPLE TE BLD COUNT W/DIF F monocytes, absolute count 0.29 x10'3 /uL 0.29-[address] [facility] (Lab) [address] [place], [address], 10/05/2022 18:35:59 10/06/19 23 10/05/2022 CBC/C OMPLE TE BLD COUNT W/DIF F eosinophils, absolute count 0.06 x10'3 /uL 0.02-[address] [facility] (Lab) [address] [place], [address], 10/05/2022 18:35:59 10/06/19 23 10/05/2022 CBC/C OMPLE TE BLD COUNT W/DIF F basophils, absolute count 0.02 x10'3 /uL 0.01-[address] [facility] (Lab) [address] [place], [address], 10/05/2022 18:35:59 10/06/19 23 10/05/2022 CBC/C OMPLE TE BLD COUNT W/DIF F immature granulocytes ,absolute 0.01 x10'3 /uL 0.00-[address] [facility] (Lab) [address] [place], [address], 10/05/2022 18:35:59 10/06/19 23 10/05/2022 CBC/C OMPLE TE BLD COUNT W/DIF F nucleated red blood cells 0.0 % -0 Not Available [facility] (Lab) [address] [place], [address], 10/05/2022 18:35:59 10/06/19 23 10/05/2022 CBC/C OMPLE TE BLD COUNT W/DIF F NRBC# 0.00 x10'3 /uL Not Available [facility] (Lab) [address] [place], [address], 10/05/2022 18:35:59 10/06/19 23 10/05/2022 COMPR EHENS NIMISHA METAB OLIC PANEL sodium 144 mmol/ L 137-[address] [facility] (Lab) [address] [place], [address], 10/05/2022 18:43:28 10/06/19 23 10/05/2022 COMPR EHENS NIMISHA METAB OLIC PANEL potassium 4.1 mmol/ L 3.5-5. 1 Not Available [facility] (Lab) [address] [place], [address], 10/05/2022 18:43:28 10/06/19 23 10/05/2022 COMPR EHENS NIMISHA METAB OLIC PANEL chloride 107 mmol/ L 98-107 Not Available [facility] (Lab) [address] [place], [address], 10/05/2022 18:43:28 10/06/19 23 10/05/2022 COMPR EHENS NIMISHA METAB OLIC PANEL carbon dioxide 27 mmol/ L 22-[address] [facility] (Lab) [address] [place], [address], 10/05/2022 18:43:28 10/06/19 23 10/05/2022 COMPR EHENS NIMISHA METAB OLIC PANEL anion gap 14.1 mmol/ L 14-[address] [facility] (Lab) [address] [place], [address], 10/05/2022 18:43:28 10/06/19 23 10/05/2022 COMPR EHENS NIMISHA METAB OLIC PANEL glucose 132 mg/dL 70-[address] [facility] (Lab) [address] [place], [address], 10/05/2022 18:43:28 10/06/19 23 10/05/2022 COMPR EHENS NIMISHA METAB OLIC PANEL BUN 13 mg/dL 8-[address] [facility] (Lab) [address] [place], [address], 10/05/2022 18:43:28 10/06/19 23 10/05/2022 COMPR EHENS NIMISHA METAB OLIC PANEL creatinine 0.60 mg/dL 0.66-1 [address] [facility] (Lab) [address] [place], [address], 10/05/2022 18:43:28 10/06/19 23 10/05/2022 COMPR EHENS NIMISHA METAB OLIC PANEL GFR >60 Refer ence Range : [place] ge GFR Healt hy Adult : >60 mL/mi n/1.7 3 m2 Chron ic Kidne y Disea se: 15-60 mL/mi n/1.7 3 m2 Kidne y Failu re: <15/m L/min /1.73 m2 www.n iddk. nih.g ov The MDRD study equat ion has not been valid ated in child robina <18 years of age; pregn ant women ; the elder ly >85 years of age; or in some racia l or ethni c subgr oups, such as Rolando nics. Outsi de the valid ated chalino [...] calcu lator is avail able on the [facility] websi te: [email or web address] :[email or web address] subramanian.[email or web address] torres.o rg/pr ofess ional s/kdo qi/gf r_cal culat or Not Available [facility] (Lab) [address] [place], [address], 10/05/2022 18:43:28 10/06/1910/05/2022 COMPR EHENS NIMISHA METAB OLIC PANEL alkaline phosphatase 70 U/L 38-126 Not Available [facility] (Lab) [address] [place], [address], 10/05/2022 18:43:28 10/06/19 23 10/05/2022 COMPR EHENS NIMISHA METAB OLIC PANEL alanine aminotransfe rase 27 U/L 0-50 Not Available [facility] (Lab) [address] [place], [address], 10/05/2022 18:43:28 10/06/19 23 10/05/2022 COMPR EHENS NIMISHA METAB OLIC PANEL aspartate aminotransfe rase 30 U/L 15-46 Not Available [facility] (Lab) [address] [place], [address], 10/05/2022 18:43:28 10/06/19 23 10/05/2022 COMPR EHENS NIMISHA METAB OLIC PANEL bilirubin, total 0.50 mg/dL 0.20-[address] [facility] (Lab) [address] [place], [address], 10/05/2022 18:43:28 10/06/19 23 10/05/2022 COMPR EHENS NIMISHA METAB OLIC PANEL calcium 8.9 mg/dL 8.4-[address] [facility] (Lab) [address] [place], [address], 10/05/2022 18:43:28 10/06/19 23 10/05/2022 COMPR EHENS NIMISHA METAB OLIC PANEL total protein 6.1 g/dL 6.3-8. [address] [facility] (Lab) [address] [place], [address], 10/05/2022 18:43:28 10/06/19 23 10/05/2022 COMPR EHENS NIMISHA METAB OLIC PANEL albumin 3.3 g/dL 3.0-4. [address] [facility] (Lab) [address] [place], [address], 10/05/2022 18:43:28 10/06/19 23 10/05/2022 COMPR EHENS NIMISHA METAB OLIC PANEL globulin 2.8 g/dL 2.6-4. [address] [facility] (Lab) [address] [place], [address], 10/05/2022 18:43:28 10/06/19 23 10/05/2022 COMPR EHENS NIMISHA METAB OLIC PANEL A/G ratio 1.2 ratio 1.0-2. [address] [facility] (Lab) [address] [place], [address], 10/05/2022 18:43:28 10/06/19 23 10/05/2022 PSA SCREE N PSA medicare screen 1.16 NG/mL 0.00-[address] [facility] (Lab) [address] [place], [address], 10/05/2022 19:05:30 10/06/19 23 10/05/2022 BNP/B -NATR IURET IC PEPTI DE BNP 130 pg/mL 4-[address] [facility] (Lab) [address] [place], [address], 10/05/2022 19:07:26 10/06/19 23 10/05/2022 HEMOG LOBIN A1C HA1C 6.1 % 4.0-6. 0 high Diabe nghia Scree paul Crite gloria: <5.7% Consi stent with absen ce of diabe nghia 5.7-6 .4% Consi stent with incre ased risk for diabe nghia (pred iabet es) >OR=6 .5% Consi stent with diabe nghia REFER ENCE: Diabe nghia Care 2016, 39(Tomas ppl.1 ):s13 -s22 [address] [facility] (Lab) [address] [place], [address], 10/05/2022 20:04:41 02/03/20 23 02/02/2023 COMPR EHENS NIMISHA METAB OLIC PANEL sodium 140 mmol/ L 137-[address] [facility] (Lab) [address] [place], [address], 02/02/2023 19:06:51 02/03/2002/02/2023 COMPR EHENS NIMISHA METAB OLIC PANEL potassium 4.1 mmol/ L 3.5-5. 1 Not Available [facility] (Lab) [address] [place], [address], 02/02/2023 19:06:51 02/03/2002/02/2023 COMPR EHENS NIMISHA METAB OLIC PANEL chloride 106 mmol/ L 98-107 Not Available [facility] (Lab) [address] [place], [address], 02/02/2023 19:06:51 02/03/2002/02/2023 COMPR EHENS NIMISHA METAB OLIC PANEL carbon dioxide 31 mmol/ L 22-30 high Not Available [facility] (Lab) [address] [place], [address], 02/02/2023 19:06:51 02/03/20 23 02/02/2023 COMPR EHENS NIMISHA METAB OLIC PANEL anion gap 7.1 mmol/ L 14-[address] [facility] (Lab) [address] [place], [address], 02/02/2023 19:06:51 02/03/20 23 02/02/2023 COMPR EHENS NIMISHA METAB OLIC PANEL glucose 137 mg/dL 70-99 high Not Available [facility] (Lab) [address] [place], [address], 02/02/2023 19:06:51 02/03/20 23 02/02/2023 COMPR EHENS NIMISHA METAB OLIC PANEL BUN 16 mg/dL 8-[address] [facility] (Lab) [address] [place], [address], 02/02/2023 19:06:51 02/03/20 23 02/02/2023 COMPR EHENS NIMISHA METAB OLIC PANEL creatinine 0.69 mg/dL 0.66-[address] [facility] (Lab) [address] [place], [address], 02/02/2023 19:06:51 02/03/20 23 02/02/2023 COMPR EHENS NIMISHA METAB OLIC PANEL GFR >60 Refer ence Range : [place] ge GFR Healt hy Adult : >60 mL/mi n/1.7 3 m2 Chron ic Kidne y Disea se: 15-60 mL/mi n/1.7 3 m2 Kidne y Failu re: <15/m L/min /1.73 m2 www.n iddk. nih.g ov The MDRD study equat ion has [...] calcu lator is avail able on the [facility] websi te: https :[email or web address] w.agustin torres.o rg/pr ofess ional s/kdo qi/gf r_cal culat or Not Available [facility] (Lab) [address] [place], [address], 02/02/2023 19:06:51 02/03/2002/02/2023 COMPR EHENS NIMISHA METAB OLIC PANEL alkaline phosphatase 92 U/L 38-126 Not Available [facility] (Lab) [address] [place], [address], 02/02/2023 19:06:51 02/03/2002/02/2023 COMPR EHENS NIMISHA METAB OLIC PANEL alanine aminotransfe rase 32 U/L 0-50 Not Available [facility] (Lab) [address] [place], [address], 02/02/2023 19:06:51 02/03/20 23 02/02/2023 COMPR EHENS NIMISHA METAB OLIC PANEL aspartate aminotransfe rase 35 U/L 15-46 Not Available [facility] (Lab) [address] [place], [address], 02/02/2023 19:06:51 02/03/2002/02/2023 COMPR EHENS NIMISHA METAB OLIC PANEL bilirubin, total 0.70 mg/dL 0.20-[address] [facility] (Lab) [address] [place], [address], 02/02/2023 19:06:51 02/03/2002/02/2023 COMPR EHENS NIMISHA METAB OLIC PANEL calcium 9.1 mg/dL 8.4-[address] [facility] (Lab) [address] [place], [address], 02/02/2023 19:06:51 02/03/2002/02/2023 COMPR EHENS NIMISHA METAB OLIC PANEL total protein 6.7 g/dL 6.3-8. [address] [facility] (Lab) [address] [place], [address], 02/02/2023 19:06:51 02/03/2002/02/2023 COMPR EHENS NIMISHA METAB OLIC PANEL albumin 3.8 g/dL 3.0-4. [address] [facility] (Lab) [address] [place], [address], 02/02/2023 19:06:51 02/03/2002/02/2023 COMPR EHENS NIMISHA METAB OLIC PANEL globulin 2.9 g/dL 2.6-4. [address] [facility] (Lab) [address] [place], [address], 02/02/2023 19:06:51 02/03/20 23 02/02/2023 COMPR EHENS NIMISHA METAB OLIC PANEL A/G ratio 1.3 ratio 1.0-2. [address] [facility] (Lab) [address] [place], [address], 02/02/2023 19:06:51 02/03/2002/02/2023 LIPID PANEL cholesterol 116 mg/dL 140-19 9 low NIH CORRY NSUS RECOM MENDA TION FOR APRIL STERO L: ADULT CHILD LOW RISK: <200 <170 BORDE RLINE : <200- 239 ----- HIGH RISK: >240 >[address] [facility] (Lab) [address] [place], [address], 02/02/2023 19:06:57 02/03/2002/02/2023 LIPID PANEL triglyceride s 156 mg/dL 0-150 high NIH CORRY NSUS REPOR T RECOM MENDA TION FOR TRIGL YCERI FE: ADULT CHILD LOW RISK: <150 ----- BODER LINE: 150-1 99 ----- HIGH RISK: >200 ----- Not [address] [facility] (Lab) [address] [place], [address], 02/02/2023 19:06:57 02/03/2002/02/2023 LIPID PANEL HDL cholesterol 37 mg/dL 40- low Not Available [facility] (Lab) [address] [place] [address], [address], 02/02/2023 19:06:57 02/03/20 23 02/02/2023 LIPID PANEL LDL cholesterol, calculated 48 mg/dL [...] WILL NOT BE REPOR BABAR. Not Available [facility] (Lab) [address] [place], [address], 02/02/2023 19:06:57 02/03/2002/02/2023 HEMOG LOBIN A1C HA1C 6.0 % 4.0-6. 0 Diabe nghia Scree paul Crite gloria: <5.7% Consi stent with absen ce of diabe nghia 5.7-6 .4% Consi stent with incre ased risk for diabe nghia (pred iabet es) >OR=6 .5% Consi stent with diabe nghia REFER ENCE: Diabe nghia Care 2016, 39(Tomas ppl.1 ):s13 -s22 [address] [facility] (Lab) [address] [place], [address], 02/02/2023 19:48:41 07/04/1905/25/2022 XR, chest , 2 view No observ ation record ed. [email or web address] Not Available 06/11 13:38:48 Result Notes None recorded. Problems Name Problem SNOMED Code Status Onset Date Resolution Date Notes Provider Name and Address Organization Details Recorded Time Solitary nodule of lung 346479457 Active 2022 Not Available [facility] 3 21:30:34 Vitamin E deficiency 23052928 Active 2022 Not Available [facility] 3 21:30:34 Iron deficiency 20808888 Active 2022 Not Available [facility] 3 21:30:34 Vitamin B12 deficiency (non anemic) 59760433 Active 2022 Not Available [facility] 3 21:30:34 Obstructive sleep apnea syndrome 25944956 Active 2022 Not Available [facility] 3 21:30:34 Essential hypertension 46626042 Active 2022 Not Available [facility] 3 21:30:34 Irritable bowel syndrome 71316709 Active Not Available [facility] 3 21:30:33 Cobalamin deficiency 642566535 Active 2021 Not Available [facility] 3 21:30:34 Chronic depression 573488915 Active Not Available [facility] 3 21:30:34 Asthma 459037192 Active Not Available [facility] 3 21:30:34 Edema 845934113 Active Not Available [facility] 3 21:30:34 Low back pain 262722582 Active Not Available [facility] 3 21:30:34 Hypertriglyce ridemia 124341342 Active Not Available [facility] 3 21:30:34 Type 2 diabetes mellitus without complication 105801270 Active 2021 Not Available [facility] 3 21:30:34 Sinusitis 28159282 Active Not Available [facility] 3 21:30:34 Arthritis 2139391 Active Not Available [facility] 3 21:30:34 Obesity 695915747 Active Not Available [facility] 3 21:30:34 Screening for malignant neoplasm of prostate Active 2021 Not Available [facility] 3 21:30:34 Anxiety 22811462 Active 2021 Not Available [facility] 3 21:30:34 Hyperlipidemi a 16788045 Active Not Available [facility] 3 21:30:34 Chronic rhinitis 45720553 Active Not Available [facility] 3 21:30:34 Dystrophia unguium 50407466 Active 2021 Not Available [facility] 3 21:30:34 Notes:Medical History: Depre ssion/Anxiety Rhinitis with postnasal drip Obesity with very severe JOCELYNE, AHI = 47, 11/19/20, on CPAP c/o IVRC Mixed hyperlipidemia T2DM IBD Iron deficinecy Vit B12 deficiency Vit E deficiency PLMD Low back pain Procedure History: Right esotropia surgery 1960 Colonoscopy with polypectomy 2016 Colon resection 2016 Appendectomy 2016 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 Procedures Surgical History Date Name Laterality Status Provider Name and Address Organization Details Recorded Time 10/06/19 Medicare Wellness CPT Code, subsequent completed JANET Hanks [facility] [employer] [facility] 10/05/2022 14:40:54 10/06/19 Advanced Care Planning completed JANET Hanks [facility] [employer] [facility] 10/05/2022 14:42:28 Eye Surgery completed Not Available [facility] 06/10/2022 04:42:30 Appendectomy completed Not Available [facility] 06/10/2022 04:42:30 partial resection of colon completed Not Available [facility] 06/10/2022 04:42:30 operation on rectum completed Not Available [facility] 06/10/2022 04:42:30 Imaging Results Imaging Date Name Status LastModified by Organiz ation Details LastModified Time 05/25/2022 XR, chest, 2 view completed [email or web address] Information not available 07/03/2022 13:38:48 Procedure Notes [...] Updated DateTime 3 170.18 cm 45.7 kg/m2 880959. 97 g 98.2 [degF] 63 /min 122 mm[Hg] 78 mm[Hg] KALEIGH Simpson [facility] [employer] [facility] 3 14:14:20 Date Recorded Body height Body mass index (BMI) Body weight Body temperature Oxygen saturation Oxygen saturation in Arterial blood by Pulse oximetry Systolic blood pressure Diastolic blood pressure Provider Name and Address Organization Details Last Updated DateTime 3 170.18 cm 46 kg/m2 769253. 44 g 98.3 [degF] 95 % 95 % 118 mm[Hg] 70 mm[Hg] Jena Curry MA [facility] [employer] [facility] 3 11:48:53 Date Recorded Heart rate Heart rate Respiratory rate Provider Name and Address Organization Details Last Updated DateTime 08/10/2022 60 /min 60 /min 15 /min Eusebio Barbosa MD [address] [place] [address], [address], [facility] [employer] [facility] 08/10/2022 11:49:15 Date Recorded Body height Body mass index (BMI) Body weight Body temperature Heart rate Systolic blood pressure Diastolic blood pressure Provider Name and Address Organization Details Last Updated DateTime 3 170.18 cm 45.9 kg/m2 428002. 56 g 98.1 [degF] 60 /min 120 mm[Hg] 86 mm[Hg] KALEIGH Simpson [facility] [employer] [facility] 3 14:29:46 Date Recorded Pain severity - 0-10 verbal numeric rating [Score] - Reported Provider Name and Address Organization Details Last Updated DateTime 10/05/2022 0 Lisa Bowman RN [facility] [employer] [facility] 10/05/2022 14:41:09 Date Recorded Body height Body mass index (BMI) Body weight Body temperature Heart rate Systolic blood pressure Diastolic blood pressure Provider Name and Address Organization Details Last Updated DateTime 3 170.18 cm 46.7 kg/m2 827896. 53 g 98.4 [degF] 60 /min 122 mm[Hg] 76 mm[Hg] KALEIGH Simpson [facility] [employer] [facility] 3 15:26:43 Date Recorded Body height Body mass index (BMI) Body weight Body temperature Oxygen saturation Oxygen saturation in Arterial blood by Pulse oximetry Systolic blood pressure Diastolic blood pressure Provider Name and Address Organization Details Last Updated DateTime 3 170.18 cm 46.4 kg/m2 304863. 34 g 97.7 [degF] 98 % 98 % 124 mm[Hg] 74 mm[Hg] Jena Curry MA [facility] 3 15:01:42 Date Recorded Heart rate Heart rate Respiratory rate Provider Name and Address Organization Details Last Updated DateTime 02/23/2023 59 /min 59 /min 14 /min Eusebio Barbosa MD [address] [facility], [facility] [address], [place], [address], [facility] 02/23/2023 15:25:04 Social History Question Answer Notes LastModified by Organization Details LastModified Time Tobacco Smoking Status Never Smoker Not Available [employer] 06/10/2022 04:08:03 Do You Have An Advance Directive? No Patient Declined Informatio n. MIGRATION.0301 [id number] Information not available 06/10/2022 What Is Your Level Of Alcohol Consumption? Occasional Rarely Per Pt MIGRATION.0301 915965 Information not available 06/10/2022 Are You Blind Or Do You Have Difficulty Seeing? No MIGRATION.0301 711994 Information not available 06/10/2022 What Is Your Level Of Caffeine Consumption? Occasional MIGRATION.0301 379765 Information not available 06/10/2022 How Much Tobacco Do You Chew? None MIGRATION.0301 338175 Information not available 06/10/2022 In The 14 Days Before Symptom Onset, Have You Had Close Contact With A Laboratory-confi rmed COVID-19 While That Case Was Ill? No MIGRATION.0301 932456 Information not available 06/10/2022 In The 14 Days Before Symptom Onset, Have You Had Close Contact With A Person Who Is Under Investigation For COVID-19 While That Person Was Ill? No MIGRATION.0301 516573 Information not available 06/10/2022 Are You Deaf Or Do You Have Serious Difficulty Hearing? No MIGRATION.0301 055436 Information not available 06/10/2022 What Type Of Diet Are You Following? REGULAR MIGRATION.0301 997320 Information not available 06/10/2022 Which Illicit Or Recreational Drugs Have You Used? None MIGRATION.0301 954651 Information not available 06/10/2022 Do You Or Have You Ever Used E-cigarettes Or Vape? Never Used Electronic Cigarettes MIGRATION.0301 166208 Information not available 06/10/2022 What Is The Highest Grade Or Level Of School You Have Completed Or The Highest Degree You Have Received? [id number] MIGRATION.0301 990607 Information not available 06/10/2022 Do You Have An Electrostatic Air Filter? No MIGRATION.0301 628356 Information not available 06/10/2022 Have There Been Any Changes To Your Family Or Social Situation? No MIGRATION.0301 997647 Information not available 06/10/2022 What Is The Fluoride Status Of Your Home? Unknown MIGRATION.0301 323023 Information not available 06/10/2022 Are There Any Guns Present In Your Home? No MIGRATION.0301 076559 Information not available 06/10/2022 Do You Have A Humidifier? Yes MIGRATION.0301 947941 Information not available 06/10/2022 Do You Use Insect Repellent Routinely? Yes MIGRATION.0301 190125 Information not available 06/10/2022 Where Do You Live? [facility] MIGRATION.0301 592501 Information not available 06/10/2022 Do You Have A Medical Power Of Children[facility]? No MIGRATION.0301 879802 Information not available 06/10/2022 Do You Have Moisture Problems In Your Home? No MIGRATION.0301 875561 Information not available 06/10/2022 What Was The Date Of Your Most Recent Tobacco Screening? 02/23/2023 [email or web address] Information not available 02/23/2023 Have You Ever Been Counseled For Unhealthy Alcohol Use? No MIGRATION.0301 134395 Information not available 06/10/2022 Do You Have Any Pets? No MIGRATION.0301 515386 Information not available 06/10/2022 What Is Your Relationship Status? MIGRATION.0301 964443 Information not available 06/10/2022 Do You Use Your Seat Belt Or Car Seat Routinely? Yes MIGRATION.0301 370618 Information not available 06/10/2022 Do You Have Smoke And Carbon Monoxide Detectors In Your Home? Yes MIGRATION.0301 234293 Information not available 06/10/2022 Are You Passively Exposed To Smoke? No MIGRATION.0301 157806 Information not available 06/10/2022 Do You Or Have You Ever Used Smokeless Tobacco? Never Used Smokeless Tobacco MIGRATION.0301 068288 Information not available 06/10/2022 Are There Any Smokers In Your House? No MIGRATION.0301 205334 Information not available 06/10/2022 How Much Tobacco Do You Smoke? No MIGRATION.0301 289589 Information not available 06/10/2022 What Types Of Sporting Activities Do You Participate In? None MIGRATION.0301 574902 Information not available 06/10/2022 Do You Feel Stressed (tense, Restless, Nervous, Or Anxious, Or Unable To Sleep At Night)? [id number] MIGRATION.0301 212460 Information not available 06/10/2022 Do You Use Any Illicit Or Recreational Drugs? No MIGRATION.0301 617116 Information not available 06/10/2022 Do You Use Sunscreen Routinely? Yes MIGRATION.0301 111231 Information not available 06/10/2022 Has Tobacco Cessation Counseling Been Provided? No Not Needed-nev er Smoked MIGRATION.0301 748277 Information not available 06/10/2022 How Many Years Have You Smoked Tobacco? 0 MIGRATION.0301 056787 Information not available 06/10/2022 Have You Recently Traveled Abroad? No MIGRATION.0301 749854 Information not available 06/10/2022 Do You Have Any Dietary Restrictions? No MIGRATION.0301 737607 Information not available 06/10/2022 Do You Or Have You Ever Used Any Other Forms Of Tobacco Or Nicotine? No MIGRATION.0301 368803 Information not available 06/10/2022 Sex: Male Functional Status Question Answer Note LastModified by Organizat ion Details LastModified Time Do you have difficulty walking or climbing stairs? No MIGRATION.8612657 026 Information not available 06/10/2022 Do you have transportation difficulties? No MIGRATION.5275248 026 Information not available 06/10/2022 Are you able to walk? YESWOREST MIGRATION.8166359 026 Information not available 06/10/2022 Do you have difficulty doing errands alone? No MIGRATION.4763521 026 Information not available 06/10/2022 Are you able to care for yourself? Yes MIGRATION.5713112 026 Information not available 06/10/2022 Do you have difficulty dressing or bathing? No MIGRATION.1479016 026 Information not available 06/10/2022 What is your exercise level? None MIGRATION.8648316 026 Information not available 06/10/2022 Mental Status Question Answer Note LastModified by Organizat ion Details LastModified Time Do you have difficulty concentrating, remembering or making decisions? No MIGRATION.830381898 6 Information not available 06/10/2022 Family History Relationship Description Onset Age of this Age Resolved Age Notes LastModified by Organization Details LastModified Time Mother Diabetes mellitus MIGRATION.238 [id number] Not available 06/10/2022 04:42:31 Brother Malignant tumor of pharynx with METS MIGRATION.081 1911141 Not available 06/10/2022 04:42:31 Brother Obstructive sleep apnea syndrome MIGRATION.745 9211164 Not available 06/10/2022 04:42:31 Sister Malignant tumor of pharynx MIGRATION.747 8338552 Not available 06/10/2022 04:42:31 Father Chronic obstructive pulmonary disease deceas ed MIGRATION.642 4999561 Not available 06/10/2022 04:42:31 Father Diverticulit is MIGRATION.984 7834615 Not available 06/10/2022 04:42:31 Medical History Condition [...] ARTERY DISEASE (CAD) N ADDICTION CONCERNS N ENDOMETRIOSIS N Impotence N USE OF BLOOD THINNERS N SKIN [...] APNEA Y CHICKENPOX N INFECTIOUS DISEASE N HEART ARRHYTHMIA N PROSTATE N INSOMNIA N HIGH CHOLESTEROL / HYPERLIPIDEMIA Y HYPERTHYROIDISM N EYE PROBLEMS N EDEMA Y CHRONIC PAIN SYNDROME N HYPOTHYROIDISM N CAROTID BLOCKAGE N CONSTIPATION N BACK / NECK PROBLEMS N ATHEROSCLEROSIS N BREAST PROBLEMS N DIALYSIS N ECZEMA N OSTEOPOROSIS N ARTHRITIS Y APPENDICITIS N DIABETES, TYPE N BAD TEETH N ENT N HEARTBURN / REFLUX N AUTISM SPECTRUM DISORDER (ASD) N HEPATITIS / LIVER DISEASE N GOUT N SLEEP DISORDER N ALZHEIMER'S DISEASE N Brain Problems N HERPES N DEMENTIA N HEADACHES/MIGRAINES N SEIZURES/EPILEPSY N VASCULAR DISEASE N PACEMAKER N Blood Disorder N DIZZINESS N HEART DISEASE/HEART PROBLEMS N KIDNEY DISEASE N MULTIPLE SCLEROSIS N CARDIAC ARRHYTHMIA N CANCER: SPECIFY N ATRIAL FIBRILLATION N Gall Stones N PULMONARY EMBOLISM N AUTOIMMUNE DISEASE N Immunizations Vaccine Type Date Status Note Provider Nam e and Address Organization Details Recorded Time Influenza, split virus, trivalent, preservative 0 completed Not Available [employer] 02/18/2023 21:30:34 Influenza, high-dose, quadrivalent, PF 3 completed Jennifer Perez MD [address] [facility], [place], [address], [employer] [facility] 02/01/2023 20:57:54 Pneumococcal conjugate PCV20, polysaccharide YSZ293 conjugate, adjuvant, PF 3 completed Jennifer Perez MD [address] [facility], [address], [place], [address], [employer] [facility] 10/06/2022 08:36:54 Past Encounters Encounter ID Performer Location Encounter Start Date Encounter Closed Date Diagnosis/Indication Diagnosis SNOMED-CT Code Diagnosis ICD10 Code Diagnosis Note [id number] [facility] [address] [place], [place] [address]e., [address] [address] 10/09/2020 00:00:00 10/14/2020 18:30:32 [id number] [facility] [address] [place], [place] [address] [address] [address] 05/09/2021 00:00:00 05/09/2021 20:29:44 [id number] [facility] [address] [place], [place] [address]., [address] [address] 06/09/2021 00:00:00 06/14/2021 16:24:15 [id number] [facility] [address] [address] 06/17/2021 00:00:00 06/17/2021 15:06:20 [id number] [facility] [address] [address] 07/07/2021 00:00:00 07/13/2021 17:57:38 [id number] [facility] [place] [id number] [facility], [facility] [address] [place] [address] 07/10/2021 00:00:00 07/10/2021 10:23:45 [id number] [facility] [address], [address] [address] 10/06/2021 00:00:00 10/06/2021 21:55:05 [id number] [facility] Pulmonolo [address] [address] 10/15/2021 00:00:00 10/15/2021 15:21:44 [id number] [facility] [address], [address] [address] 01/26/2022 00:00:00 01/26/2022 22:54:11 [id number] [facility] [address] [address] 02/10/2022 00:00:00 02/10/2022 15:21:02 [id number] [facility] [address], [address] [address] 05/25/2022 00:00:00 05/31/2022 20:19:34 [id number] Jennifer Perez MD [facility] [address], [address] [address] 06/29/2022 14:06:18 06/29/2022 15:22:21 Chronic rhinitis 68516014 J31.0 Type 2 ivy betes mellitus without complication 216963410 E11.9 [id number] Eusebio Barbosa MD [facility] [place] [address] 08/10/2022 11:33:57 08/11/2022 07:45:25 Solitary nodule of lung 786336171 R91.1 Vitamin E deficiency 541 98420 E56.0 Iron deficiency 20561037 E61.1 Vitamin B1 2 deficiency (non anemic) 22640012 E53.8 Obstructiv e sleep apnea syndrome 54035785 G47.33 [id number] Jennifer Perez MD [facility] Internal [place] [address] [place], [place] [id number] 10/05/2022 14:15:43 10/05/2022 15:05:33 Adult health examination 634293361 Z00.00 Screening for disorder 104468050 Z13.9 Administra tion of pneumococcal vaccine 06447356 Z23 Asthma 246976312 J45.90 9 Edema 502628888 R60.9 Hyperlipidemia 22675255 E78.5 [id number] Jennifer Perez MD [facility] Internal [place] [address] [place] [address] 02/01/2023 15:15:21 02/01/2023 15:51:28 Hyperlipidemia 86037390 E78.5 Essential hypertension 10815956 I10 Type 2 ivy betes mellitus without complication 487444774 E11.9 Administra tion of influenza vaccine 15784655 Z23 [id number] Eusebio Barbosa MD [facility] [address] 02/23/2023 14:39:31 02/24/2023 08:19:01 Solitary nodule of lung 823260202 R91.1 Vitamin E deficiency 541 72381 E56.0 Iron deficiency 49473563 E61.1 Vitamin B1 2 deficiency (non anemic) 28301336 E53.8 Obstructiv e sleep apnea syndrome 46243603 G47.33 Health Concerns Section Related Observation LastModified by Organization Detai ls LastModified Time None Recorded Concern Status LastModified by Organization Details LastModified Time None Recorded Advance Directives Directive N: Patient declined informat ion. Payers Encounter Date Sequence Insurance Name Policy Number Policy Christian Covered Member ID Christian Member ID Guarantor Name 06/29/2022 1 [facility] (MEDICARE REPLACEMENT/A DVANTAGE - HMO) [id number] Jul[address] [id number] Julio Cesar Box 08/10/2022 1 [facility] (MEDICARE REPLACEMENT/A DVANTAGE - HMO) [id number] Julio Cesar L Box [id number] Julio Cesar Box 10/05/2022 1 [facility] (MEDICARE REPLACEMENT/A DVANTAGE - HMO) [id number] Julio Cesar Box [id number] Julio Cesar Box 02/01/2023 1 [facility] (MEDICARE REPLACEMENT/A DVANTAGE - HMO) [id number] Julio Cesar L Box [id number] Julio Cesar Box 02/23/2023 1 [facility] (MEDICARE REPLACEMENT/A DVANTAGE - HMO) [id number] Julio Cesar Box [id number] Julio Cesar Box Notes Date Note Type Note Provider Name and Address Organization Details Recorded Time 06/29/2022 text/html Cough gone rhini tis doing fine A1c 6.3 Jennifer Perez MD [address] [place] [address], [address], [facility] [employer] 06/29/2022 20:50:31 08/10/2022 text/html Primary care/Ref erring provider: Jennifer Perez MD During the [facility] split night sleep study on 11/19/20, the [...] chance of dozing. Eusebio Barbosa MD [address], [place], [address], [facility] [employer] [facility] [employer] [facility] 08/10/2022 17:29:29 10/05/2022 text/html Diabetes no poly phagia polydipsia. Anxiety doing fine no SI or HI. Edema about the same. Dyslipidemia trying to watch his fat intake Medicare Wellness concluded Jennifer Perez MD [address], [place], [address], [facility] [employer] [facility] [employer] [facility] 10/06/2022 08:36:59 02/01/2023 text/html Diabetes no poly phagia polydipsia. Anxiety doing fine no SI or HI. Edema about the same. Dyslipidemia trying to watch his fat intake Jennifer Perez MD [address], [place], [address], [employer] [facility] [employer] [facility] 02/01/2023 20:57:58 02/23/2023 text/html Primary care/Ref erring provider: Jennifer Perez MD During the [facility] split night sleep study on 11/19/20, the [...] slight chance of dozing. Eusebio Barbosa MD [address] [place] [address], [place], [address], [place] [facility] [employer] [facility] 02/23/2023 15:25:43
--- OUTSIDE RECORDS SUMMARY | 2024-05-22 15:21 | XMS_ITS | CONTINUITY OF CARE DOCUMENT ---
Author Name susi goldman Address Unknown Organization [facility] Address [address] [facility] [address] [place] [address] Phone [phone] Care Team Providers Care Justice Professor Name Role Phone Nakul REICH, Rick Unavailable Rick Mota MD Unavailable [phone] INSURANCE PROVIDERS Payer name Policy type / Coverage type [place] red green party ID A[employer] MEDICARE ADVANTAGE HMO-POS HMO [id number]
--- OUTSIDE RECORDS SUMMARY | 2024-05-22 15:21 | XMS_ITS | Data Portability ---
Author Organization [facility] [place] C[place] Address [address] [facility] [place] [address] Care Team Providers Care Major Sales Associate Name Role Phone JENNIFER PEREZ Primary Care Provider ALEX Mendiola In Room Dining Server Assessment Encounter Date Assessment Date Assessment LastModified by Organization Details LastModified Time 07/07/2023 07/07/2023 Weight reduction through caloric restriction blood work for biochemical management of disease processes and medications. Obtain old records and follow-up with me in 4-month [email or web address] Not available 07/07/2023 21:11:26 08/11/2023 08/11/2023 BNP CMP echo Lasix 20 mg daily he will let me know in a couple of days how he is doing hemoglobin A1c 6.1 [email or web address] Not available 08/16/2023 23:12:22 11/10/2023 11/10/2023 we will obtain blood work and a urinalysis CBC CMP lipid A1c T3-T4 TSH UA increase his Lasix to 40 b.i.d. for 3 days and then he will back down to his regular dose he will let me know in a few days how he is responding to that dose.rtc 3 months [email or web address] Not available 11/12/2023 21:00:42 11/17/2023 11/17/2023 comes [...] will get venous duplex with reflex studies Not available 11/28/2023 16:48:28 02/09/2024 02/09/2024 [email or web address] 250 daily times 12 weeks. Healthy lifestyle care instructions. Due for PSA flu shot colonoscopy he will consider COVID vaccination no change in his chronic medicines at this time all questions answered follow up in 4 months [email or web address] Not available 02/09/2024 22:36:37 Plan of Treatment Reminders Order Date Submit Date Provider Last Modified By Organization Details Last Modified Time Details Appointments ANY 15 2024 11:00A M Jennifer Perez MD Not available Not available Not available Lab HbA1c (hemoglob in A1c), blood 2023 024 [facility], [address], [place], [address], 07/29/2023 11:20:08 lipid panel, serum 2023 024 [facility], [address], [place], [address], 07/29/2023 11:20:06 CMP, serum or plasma 2023 024 [facility], [address], [place], [address], 07/29/2023 11:20:07 CBC w/ auto diff 2023 024 [facility], [address], [place], [address], 07/29/2023 11:20:09 BNP (B-type natriuret ic peptide), blood 2023 024 [facility], [address], [place], [address], 08/24/2023 14:04:17 CMP, serum or plasma 2023 024 [place], [address], [place], [address], 08/12/2023 10:12:43 HbA1c (hemoglob in A1c), blood 2023 024 [email or web address] In-Office Order, Internal Use Only DO Not Attach Compendium DO Not Attach Compendium, Do Not Delete/merge, [id number] 08/16/2023 23:12:41 HbA1c (hemoglob in A1c), blood 2023 024 [facility], [address], [place], [address], 11/11/2023 13:11:32 albumin/c reatinine , mass ratio, urine 2023 024 [facility], [address], [place], [address], 11/11/2023 13:11:30 lipid panel, serum 2023 024 [facility], [address], [place], [address], 11/11/2023 13:11:31 CMP, serum or plasma 2023 024 [facility], [address], [place], [address], 11/11/2023 13:11:31 CBC w/ auto diff 2023 024 [facility], [address], [place], [address], 11/11/2023 13:11:34 urinalysi s, microscop ic 2023 024 [facility], [address], [place], [address], 11/11/2023 13:11:32 T4, free, serum 2023 024 [facility], [address], [place], [address], 11/11/2023 13:11:35 T3, free, serum or plasma 2023 024 [place], [address], [place], [address], 11/11/2023 13:11:35 TSH, ultra-sen sitive, serum 2023 024 [place] [place], [address], [place], [address], 11/11/2023 13:11:33 PSA, total, serum or plasma 2023 024 [facility], [address], [place], [address], 05/22/2024 12:58:35 Referral nutrition ist/dieti kaity referral 2023 024 [facility], [address], [place], [address], 12/06/2023 14:13:12 Procedures colonosco py screening (PROC) - follow up, polyps 2023 024 [facility], [address], [address], [place], [address], 05/17/2024 14:35:05 Surgeries None recorded. Imaging US, echocardi ogram 2023 024 [facility]), [address], [place], [address], 08/23/2023 14:30:26 Medication Orders Lasix 20 mg tablet 2023 024 [id number], [address], [place], [place], [id number], 08/11/2023 13:29:17 terbinafi ne HCl 250 mg tablet 2023 024 [email or web address] [id number], [address], [place], [place], [id number], 02/09/2024 16:52:58 Patient TargetsNo targets recorded. 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 Refer ral for Type 2 diabetes mellitus Referring Physician: Jennifer Perez, Internal Medicine, Encounter Date: 11/17/2023 Results Created Date Observation Date Name Description Value Unit Range Abnormal Flag Note LastModifiedBy Organization Detail LastModifiedTime 07/28/19 24 07/29/2023 LIPID PANEL cholesterol, total 93 mg/dL 100-19 9 below low normal Not Available [facility] ([facility]) [address] [place], [address], 07/29/2023 11:20:06 07/28/19 24 07/29/2023 LIPID PANEL triglyceride s 175 mg/dL 0-149 above high normal Not Available [facility] ([facility]) [address] [place], [address], 07/29/2023 11:20:06 07/28/19 24 07/29/2023 LIPID PANEL HDL cholesterol 35 mg/dL >39 below low normal Not Available [facility] ([facility]) [address] [place], [address], 07/29/2023 11:20:06 07/28/19 24 07/29/2023 LIPID PANEL VLDL cholesterol arjun 29 mg/dL 5-40 Not Available [facility] ([facility]) [address] [place], [address], 07/29/2023 11:20:06 07/28/19 24 07/29/2023 LIPID PANEL LDL chol calc ([facility]) 29 mg/dL 0-99 Not Available [facility] ([facility]) [address] [place], [address], 07/29/2023 11:20:06 07/28/19 24 07/29/2023 COMP. METAB OLIC PANEL (14) glucose 98 mg/dL 70-99 Not Available [facility] ([facility]) [address] [place], [address], 07/29/2023 11:20:07 07/28/19 24 07/29/2023 COMP. METAB OLIC PANEL (14) BUN 14 mg/dL 8-27 Not Available [facility] ([facility]) [address] [place], [address], 07/29/2023 11:20:07 07/28/19 24 07/29/2023 COMP. METAB OLIC PANEL (14) creatinine 0.74 mg/dL 0.76-1 .27 below low normal Not Available [facility] ([facility]) [address] [place], [address], 07/29/2023 11:20:07 07/28/19 24 07/29/2023 COMP. METAB OLIC PANEL (14) eGFR 99 mL/mi n/1.7 3 >59 Not Available [facility] ([facility]) [address] [place], [address], 07/29/2023 11:20:07 07/28/19 24 07/29/2023 COMP. METAB OLIC PANEL (14) BUN/creatini ne ratio 19 10-24 Not Available [facility] ([facility]) [address] [place], [address], 07/29/2023 11:20:07 07/28/19 24 07/29/2023 COMP. METAB OLIC PANEL (14) sodium 145 mmol/ L 134-14 4 above high normal Not Available [facility] ([facility]) [address] [facility] [place], [address], 07/29/2023 11:20:07 07/28/19 24 07/29/2023 COMP. METAB OLIC PANEL (14) potassium 4.2 mmol/ L 3.5-5. 2 Not Available [facility] ([facility]) [address] [facility] [place], [address], 07/29/2023 11:20:07 07/28/19 24 07/29/2023 COMP. METAB OLIC PANEL (14) chloride 108 mmol/ L 96-106 above high normal Not Available [facility] ([facility]) [address] [facility] [place], [address], 07/29/2023 11:20:07 07/28/19 24 07/29/2023 COMP. METAB OLIC PANEL (14) carbon dioxide, total 25 mmol/ L 20-29 Not Available [facility] ([facility]) [address] [place], [address], 07/29/2023 11:20:07 07/28/19 24 07/29/2023 COMP. METAB OLIC PANEL (14) calcium 9.4 mg/dL 8.6-10 .2 Not Available [facility] ([facility]) [address] [place], [address], 07/29/2023 11:20:07 07/28/19 24 07/29/2023 COMP. METAB OLIC PANEL (14) protein, total 7.0 g/dL 6.0-8. 5 Not Available [facility] ([facility]) [address] [place], [address], 07/29/2023 11:20:07 07/28/19 24 07/29/2023 COMP. METAB OLIC PANEL (14) albumin 4.1 g/dL 3.9-4. 9 Not Available [facility] ([facility]) [address] [facility], [place], [address], 07/29/2023 11:20:07 07/28/19 24 07/29/2023 COMP. METAB OLIC PANEL (14) globulin, total 2.9 g/dL 1.5-4. 5 Not Available [facility] ([facility]) [address] [facility], [place], [address], 07/29/2023 11:20:07 07/28/19 24 07/29/2023 COMP. METAB OLIC PANEL (14) A/G ratio 1.4 1.2-2. 2 Not Available [facility] ([facility]) [address] [facility], [place], [address], 07/29/2023 11:20:07 07/28/19 24 07/29/2023 COMP. METAB OLIC PANEL (14) bilirubin, total 0.3 mg/dL 0.0-1. 2 Not Available [facility] ([facility]) [address] [facility], [place], [address], 07/29/2023 11:20:07 07/28/19 24 07/29/2023 COMP. METAB OLIC PANEL (14) alkaline phosphatase 108 IU/L 44-121 Not Available [facility]) [address] [facility], [place], [address], 07/29/2023 11:20:07 07/28/19 24 07/29/2023 COMP. METAB OLIC PANEL (14) AST (SGOT) 24 IU/L 0-40 Not Available [facility] ([facility]) [address] [facility], [place], [address], 07/29/2023 11:20:07 07/28/19 24 07/29/2023 COMP. METAB OLIC PANEL (14) ALT (SGPT) 18 IU/L 0-44 Not Available [facility] ([facility]) [address] [facility], [place], [address], 07/29/2023 11:20:07 07/28/19 24 07/29/2023 HEMOG LOBIN A1C hemoglobin A1C 6.3 % 4.8-5. 6 above high normal Predi abete s: 5.7 - 6.4 Diabe nghia: >6.4 Glyce roxana contr ol for adult s with diabe nghia: <7.0 Not Available [facility] ([facility]) [address] [facility], [place], [address], 07/29/2023 11:20:08 07/28/19 24 07/29/2023 CBC WITH DIFFE RENTI AL/PL ATELE T WBC 4.6 x10e3 /uL 3.4-10 .8 Not Available [facility] ([facility]) [address] [facility], [place], [address], 07/29/2023 11:20:08 07/28/19 24 07/29/2023 CBC WITH DIFFE RENTI AL/PL ATELE T RBC 4.53 x10e6 /uL 4.14-5 .80 Not Available [facility] ([facility]) [address] [facility], [place], [address], 07/29/2023 11:20:08 07/28/19 24 07/29/2023 CBC WITH DIFFE RENTI AL/PL ATELE T hemoglobin 13.7 g/dL 13.0-1 7.7 Not Available [facility] ([facility]) [address] [place], [address], 07/29/2023 11:20:08 07/28/19 24 07/29/2023 CBC WITH DIFFE RENTI AL/PL ATELE T hematocrit 42.8 % 37.5-5 1.0 Not Available [facility] ([facility]) [address] [place], [address], 07/29/2023 11:20:08 07/28/19 24 07/29/2023 CBC WITH DIFFE RENTI AL/PL ATELE T MCV 95 fL 79-97 Not Available [facility] ([facility]) [address] [facility], [place], [address], 07/29/2023 11:20:08 07/28/19 24 07/29/2023 CBC WITH DIFFE RENTI AL/PL ATELE T MCH 30.2 pg 26.6-3 3.0 Not Available [facility] ([facility]) [address] [facility], [place], [address], 07/29/2023 11:20:08 07/28/19 24 07/29/2023 CBC WITH DIFFE RENTI AL/PL ATELE T MCHC 32.0 g/dL 31.5-3 5.7 Not Available [facility] ([facility]) [address] [facility], [place], [address], 07/29/2023 11:20:08 07/28/19 24 07/29/2023 CBC WITH DIFFE RENTI AL/PL ATELE T RDW 14.5 % 11.6-1 5.4 Not Available [facility] ([facility]) [address] [facility], [place], [address], 07/29/2023 11:20:08 07/28/19 24 07/29/2023 CBC WITH DIFFE RENTI AL/PL ATELE T platelets 187 x10e3 /uL 150-45 0 Not Available [facility] ([facility]) [address] [facility], [place], [address], 07/29/2023 11:20:08 07/28/19 24 07/29/2023 CBC WITH DIFFE RENTI AL/PL ATELE T neutrophils 62 % notest ab. Not Available [facility] ([facility]) [address] [place], [address], 07/29/2023 11:20:08 07/28/19 24 07/29/2023 CBC WITH DIFFE RENTI AL/PL ATELE T lymphs 24 % notest ab. Not Available [facility] ([facility]) [address] [facility], [place], [address], 07/29/2023 11:20:08 07/28/19 24 07/29/2023 CBC WITH DIFFE RENTI AL/PL ATELE T monocytes 11 % notest ab. Not Available [facility] ([facility]) [address] [facility], [place], [address], 07/29/2023 11:20:08 07/28/19 24 07/29/2023 CBC WITH DIFFE RENTI AL/PL ATELE T eos 2 % notest ab. Not Available [facility] ([facility]) [address] [facility], [place], [address], 07/29/2023 11:20:08 07/28/19 24 07/29/2023 CBC WITH DIFFE RENTI AL/PL ATELE T basos 1 % notest ab. Not Available [facility] ([facility]) [address] [facility], [place], [address], 07/29/2023 11:20:08 07/28/19 24 07/29/2023 CBC WITH DIFFE RENTI AL/PL ATELE T neutrophils (absolute) 2.9 x10e3 /uL 1.4-7. 0 Not Available [facility] ([facility]) [address] [facility], [place], [address], 07/29/2023 11:20:08 07/28/19 24 07/29/2023 CBC WITH DIFFE RENTI AL/PL ATELE T lymphs (absolute) 1.1 x10e3 /uL 0.7-3. 1 Not Available [facility] ([facility]) [address] [facility], [place], [address], 07/29/2023 11:20:08 07/28/19 24 07/29/2023 CBC WITH DIFFE RENTI AL/PL ATELE T monocytes(ab solute) 0.5 x10e3 /uL 0.1-0. 9 Not Available [facility] ([facility]) [address] [facility], [place], [address], 07/29/2023 11:20:08 07/28/19 24 07/29/2023 CBC WITH DIFFE RENTI AL/PL ATELE T eos (absolute) 0.1 x10e3 /uL 0.0-0. 4 Not Available [facility] ([facility]) [address] [facility], [place], [address], 07/29/2023 11:20:08 07/28/19 24 07/29/2023 CBC WITH DIFFE RENTI AL/PL ATELE T baso (absolute) 0.0 x10e3 /uL 0.0-0. 2 Not Available [facility] ([facility]) [address] [facility], [place], [address], 07/29/2023 11:20:08 07/28/19 24 07/29/2023 CBC WITH DIFFE RENTI AL/PL ATELE T immature granulocytes 0 % notest ab. Not Available [facility] ([facility]) [address] [facility], [place], [address], 07/29/2023 11:20:08 07/28/19 24 07/29/2023 CBC WITH DIFFE RENTI AL/PL ATELE T immature grans (abs) 0.0 x10e3 /uL 0.0-0. 1 Not Available [facility] ([facility]) [address] [facility], [place], [address], 07/29/2023 11:20:08 08/11/19 24 08/12/2023 B-TYP E NATRI URETI C PEPTI DE B-type natriuretic peptide 28.9 pg/mL 0.0-10 0.0 Sieme ns AD[facility]IA [facility] XP metho dolog y Not Available [facility] ([facility]) [address] [facility] [place], [address], 08/12/2023 10:12:42 08/11/19 24 08/12/2023 COMP. METAB OLIC PANEL (14) glucose 128 mg/dL 70-99 above high normal Not Available [facility] ([facility]) [address] [facility] [place], [address], 08/12/2023 10:12:42 08/11/19 24 08/12/2023 COMP. METAB OLIC PANEL (14) BUN 14 mg/dL 8-27 Not Available [facility] ([facility]) [address] [facility] [place], [address], 08/12/2023 10:12:42 08/11/19 24 08/12/2023 COMP. METAB OLIC PANEL (14) creatinine 0.69 mg/dL 0.76-1 .27 below low normal Not Available [facility] ([facility]) [address] [facility] [place], [address], 08/12/2023 10:12:42 08/11/19 24 08/12/2023 COMP. METAB OLIC PANEL (14) eGFR 101 mL/mi n/1.7 3 >59 Not Available [facility] ([facility]) [address] [facility] [place], [address], 08/12/2023 10:12:42 08/11/19 24 08/12/2023 COMP. METAB OLIC PANEL (14) BUN/creatini ne ratio 20 10-24 Not Available [facility] ([facility]) [address] [facility] [place], [address], 08/12/2023 10:12:42 08/11/19 24 08/12/2023 COMP. METAB OLIC PANEL (14) sodium 145 mmol/ L 134-14 4 above high normal Not Available [facility] ([facility]) [address] [facility] [place], [address], 08/12/2023 10:12:42 08/11/19 24 08/12/2023 COMP. METAB OLIC PANEL (14) potassium 4.4 mmol/ L 3.5-5. 2 Not Available [facility] ([facility]) [address] [facility], [place], [address], 08/12/2023 10:12:42 08/11/19 24 08/12/2023 COMP. METAB OLIC PANEL (14) chloride 106 mmol/ L 96-106 Not Available [facility] ([facility]) [address] [facility], [place], [address], 08/12/2023 10:12:42 08/11/19 24 08/12/2023 COMP. METAB OLIC PANEL (14) carbon dioxide, total 26 mmol/ L 20-29 Not Available [facility] ([facility]) [address] [facility], [place], [address], 08/12/2023 10:12:42 08/11/19 24 08/12/2023 COMP. METAB OLIC PANEL (14) calcium 9.4 mg/dL 8.6-10 .2 Not Available [facility] ([facility]) [address] [facility], [place], [address], 08/12/2023 10:12:42 08/11/19 24 08/12/2023 COMP. METAB OLIC PANEL (14) protein, total 6.7 g/dL 6.0-8. 5 Not Available [facility] ([facility]) [address] [facility] [place], [address], 08/12/2023 10:12:42 08/11/19 24 08/12/2023 COMP. METAB OLIC PANEL (14) albumin 4.2 g/dL 3.9-4. 9 Not Available [facility] ([facility]) [address] [facility], [place], [address], 08/12/2023 10:12:42 08/11/19 24 08/12/2023 COMP. METAB OLIC PANEL (14) globulin, total 2.5 g/dL 1.5-4. 5 Not Available [facility] ([facility]) [address] [place], [address], 08/12/2023 10:12:42 08/11/19 24 08/12/2023 COMP. METAB OLIC PANEL (14) A/G ratio 1.7 1.2-2. 2 Not Available [facility] ([facility]) [address] [place], [address], 08/12/2023 10:12:42 08/11/19 24 08/12/2023 COMP. METAB OLIC PANEL (14) bilirubin, total 0.4 mg/dL 0.0-1. 2 Not Available [facility] ([facility]) [address] [place], [address], 08/12/2023 10:12:42 08/11/19 24 08/12/2023 COMP. METAB OLIC PANEL (14) alkaline phosphatase 96 IU/L 44-121 Not Available [facility]) [address] [place], [address], 08/12/2023 10:12:42 08/11/19 24 08/12/2023 COMP. METAB OLIC PANEL (14) AST (SGOT) 24 IU/L 0-40 Not Available [facility] ([facility]) [address] [place], [address], 08/12/2023 10:12:42 08/11/19 24 08/12/2023 COMP. METAB OLIC PANEL (14) ALT (SGPT) 19 IU/L 0-44 Not Available [facility] ([facility]) [address] [place], [address], 08/12/2023 10:12:42 08/11/19 24 08/11/2023 HbA1c (hemo globi n A1c), blood HbA1c 6.1% Not Available In-Office Order Internal Use Only DO Not Attach Compendium DO Not Attach Compendium, Do Not Delete/merge, [id number] 08/11/2023 12:17:13 11/10/19 24 11/11/2023 ALBUM IN/CR EATIN INE RATIO ,URIN E creatinine, urine 138.3 mg/dL notest ab. Not Available [facility] ([facility]) [address] [place], [address], 11/11/2023 13:11:30 11/10/19 24 11/11/2023 ALBUM IN/CR EATIN INE RATIO ,URIN E albumin, urine 32.2 ug/mL notest ab. Not Available [facility] ([facility]) [address] [place], [address], 11/11/2023 13:11:30 11/10/19 24 11/11/2023 ALBUM IN/CR EATIN INE RATIO ,URIN E alb/creat ratio 23 mg/g_ creat 0-29 Dang l: 0 - 29 Moder ately incre ased: 30 - 300 Sever deana incre ased: >300 Not Available [facility] ([facility]) [address] [place], [address], 11/11/2023 13:11:30 11/10/19 24 11/11/2023 LIPID PANEL cholesterol, total 101 mg/dL 100-19 9 Not Available [facility] ([facility]) [address] [place], [address], 11/11/2023 13:11:31 11/10/19 24 11/11/2023 LIPID PANEL triglyceride s 93 mg/dL 0-149 Not Available [facility] ([facility]) [address] [place], [address], 11/11/2023 13:11:31 11/10/19 24 11/11/2023 LIPID PANEL HDL cholesterol 37 mg/dL >39 below low normal Not Available [facility] ([facility]) [address] [facility], [address], 11/11/2023 13:11:31 11/10/19 24 11/11/2023 LIPID PANEL VLDL cholesterol arjun 18 mg/dL 5-40 Not Available [facility] ([facility]) [address] [facility], [place], [address], 11/11/2023 13:11:31 11/10/19 24 11/11/2023 LIPID PANEL LDL chol calc ([facility]) 46 mg/dL 0-99 Not Available [facility] ([facility]) [address] [facility], [place], [address], 11/11/2023 13:11:31 11/10/19 24 11/11/2023 COMP. METAB OLIC PANEL (14) glucose 107 mg/dL 70-99 above high normal Not Available [facility] ([facility]) [address] [facility], [place], [address], 11/11/2023 13:11:31 11/10/19 24 11/11/2023 COMP. METAB OLIC PANEL (14) BUN 11 mg/dL 8-27 Not Available [facility] ([facility]) [address] [facility], [place], [address], 11/11/2023 13:11:31 11/10/19 24 11/11/2023 COMP. METAB OLIC PANEL (14) creatinine 0.79 mg/dL 0.76-1 .27 Not Available [facility] ([facility]) [address] [facility], [place], [address], 11/11/2023 13:11:31 11/10/19 24 11/11/2023 COMP. METAB OLIC PANEL (14) eGFR 97 mL/mi n/1.7 3 >59 Not Available [facility] ([facility]) [address] [facility] [place], [address], 11/11/2023 13:11:31 11/10/19 24 11/11/2023 COMP. METAB OLIC PANEL (14) BUN/creatini ne ratio 14 10-24 Not Available [facility] ([facility]) [address] [facility] [place], [address], 11/11/2023 13:11:31 11/10/19 24 11/11/2023 COMP. METAB OLIC PANEL (14) sodium 147 mmol/ L 134-14 4 above high normal Not Available [facility] ([facility]) [address] [facility] [place], [address], 11/11/2023 13:11:31 11/10/19 24 11/11/2023 COMP. METAB OLIC PANEL (14) potassium 3.8 mmol/ L 3.5-5. 2 Not Available [facility] ([facility]) [address], [place], [address], 11/11/2023 13:11:31 11/10/19 24 11/11/2023 COMP. METAB OLIC PANEL (14) chloride 106 mmol/ L 96-106 Not Available [facility] ([facility]) [address] [facility] [place], [address], 11/11/2023 13:11:31 11/10/19 24 11/11/2023 COMP. METAB OLIC PANEL (14) carbon dioxide, total 25 mmol/ L 20-29 Not Available [facility] ([facility]) [address] [facility] [place], [address], 11/11/2023 13:11:31 11/10/19 24 11/11/2023 COMP. METAB OLIC PANEL (14) calcium 8.9 mg/dL 8.6-10 .2 Not Available [facility] ([facility]) [address] [facility] [place], [address], 11/11/2023 13:11:31 11/10/19 24 11/11/2023 COMP. METAB OLIC PANEL (14) protein, total 6.3 g/dL 6.0-8. 5 Not Available [facility] ([facility]) [address] [place], [address], 11/11/2023 13:11:31 11/10/19 24 11/11/2023 COMP. METAB OLIC PANEL (14) albumin 4.0 g/dL 3.9-4. 9 Not Available [facility] ([facility]) [address] [place], [address], 11/11/2023 13:11:31 11/10/19 24 11/11/2023 COMP. METAB OLIC PANEL (14) globulin, total 2.3 g/dL 1.5-4. 5 Not Available [facility] ([facility]) [address] [place], [address], 11/11/2023 13:11:31 11/10/19 24 11/11/2023 COMP. METAB OLIC PANEL (14) bilirubin, total 0.5 mg/dL 0.0-1. 2 Not Available [facility] ([facility]) [address] [place], [address], 11/11/2023 13:11:31 11/10/19 24 11/11/2023 COMP. METAB OLIC PANEL (14) alkaline phosphatase 93 IU/L 44-121 Not Available [facility] ([facility]) [address] [place], [address], 11/11/2023 13:11:31 11/10/19 24 11/11/2023 COMP. METAB OLIC PANEL (14) AST (SGOT) 19 IU/L 0-40 Not Available [facility] ([facility]) [address] [place], [address], 11/11/2023 13:11:31 11/10/19 24 11/11/2023 COMP. METAB OLIC PANEL (14) ALT (SGPT) 16 IU/L 0-44 Not Available [facility] ([facility]) [address] [facility], [place], [address], 11/11/2023 13:11:31 11/10/19 24 11/11/2023 MICRO SCOPI C EXAMI NATIO N WBC 0-5 /hpf 0-5 Not Available [facility] ([facility]) [address] [facility], [place], [address], 11/11/2023 13:11:32 11/10/19 24 11/11/2023 MICRO SCOPI C EXAMI NATIO N RBC 0-2 /hpf 0-2 Not Available [facility] ([facility]) [address] [facility], [place], [address], 11/11/2023 13:11:32 11/10/19 24 11/11/2023 MICRO SCOPI C EXAMI NATIO N epithelial cells (non renal) 0-10 /hpf 0-10 Not Available [facility] ([facility]) [address] [facility], [place], [address], 11/11/2023 13:11:32 11/10/19 24 11/11/2023 MICRO SCOPI C EXAMI NATIO N casts NONE SEEN /lpf nonese en Not Available [facility] ([facility]) [address] [facility], [place], [address], 11/11/2023 13:11:32 11/10/19 24 11/11/2023 MICRO SCOPI C EXAMI NATIO N crystals PRESEN T n/a abnormal Not Available [facility] ([facility]) [address] [facility], [place], [address], 11/11/2023 13:11:32 11/10/19 24 11/11/2023 MICRO SCOPI C EXAMI NATIO N crystal type CALCIU M OXALAT E Not Available [facility] ([facility]) [address] [facility], [place], [address], 11/11/2023 13:11:32 11/10/19 24 11/11/2023 MICRO SCOPI C EXAMI NATIO N bacteria NONE SEEN nonese en/few Not Available [facility] ([facility]) [address] [facility], [place], [address], 11/11/2023 13:11:32 11/10/19 24 11/11/2023 HEMOG LOBIN A1C hemoglobin A1C 6.1 % 4.8-5. 6 above high normal Predi abete s: 5.7 - 6.4 Diabe nghia: >6.4 Glyce roxana contr ol for adult s with diabe nghia: <7.0 Not Available [facility] ([facility]) [address] [facility], [place], [address], 11/11/2023 13:11:32 11/10/19 24 11/11/2023 TSH TSH 0.669 uIU/m L 0.450- 4.500 Not Available [facility] ([facility]) [address] [facility], [place], [address], 11/11/2023 13:11:33 11/10/19 24 11/11/2023 CBC WITH DIFFE RENTI AL/PL ATELE T WBC 4.9 x10e3 /uL 3.4-10 .8 Not Available [facility] ([facility]) [address] [facility], [place], [address], 11/11/2023 13:11:34 11/10/19 24 11/11/2023 CBC WITH DIFFE RENTI AL/PL ATELE T RBC 4.24 x10e6 /uL 4.14-5 .80 Not Available [facility] ([facility]) [address] [place], [address], 11/11/2023 13:11:34 11/10/19 24 11/11/2023 CBC WITH DIFFE RENTI AL/PL ATELE T hemoglobin 13.9 g/dL 13.0-1 7.7 Not Available [facility] ([facility]) [address] [facility], [place], [address], 11/11/2023 13:11:34 11/10/19 24 11/11/2023 CBC WITH DIFFE RENTI AL/PL ATELE T hematocrit 42.9 % 37.5-5 1.0 Not Available [facility] ([facility]) [address] [facility], [place], [address], 11/11/2023 13:11:34 11/10/19 24 11/11/2023 CBC WITH DIFFE RENTI AL/PL ATELE T MCV 101 fL 79-97 above high normal Not Available [facility] ([facility]) [address] [facility], [place], [address], 11/11/2023 13:11:34 11/10/19 24 11/11/2023 CBC WITH DIFFE RENTI AL/PL ATELE T MCH 32.8 pg 26.6-3 3.0 Not Available [facility] ([facility]) [address] [facility], [place], [address], 11/11/2023 13:11:34 11/10/19 24 11/11/2023 CBC WITH DIFFE RENTI AL/PL ATELE T MCHC 32.4 g/dL 31.5-3 5.7 Not Available [facility] ([facility]) [address] [facility], [place], [address], 11/11/2023 13:11:34 11/10/19 24 11/11/2023 CBC WITH DIFFE RENTI AL/PL ATELE T RDW 13.8 % 11.6-1 5.4 Not Available [facility] ([facility]) [address] [facility], [place], [address], 11/11/2023 13:11:34 11/10/19 24 11/11/2023 CBC WITH DIFFE RENTI AL/PL ATELE T platelets 218 x10e3 /uL 150-45 0 Not Available [facility] ([facility]) [address] [facility], [place], [address], 11/11/2023 13:11:34 11/10/19 24 11/11/2023 CBC WITH DIFFE RENTI AL/PL ATELE T neutrophils 68 % notest ab. Not Available [facility] ([facility]) [address] [facility], [place], [address], 11/11/2023 13:11:34 11/10/19 24 11/11/2023 CBC WITH DIFFE RENTI AL/PL ATELE T lymphs 21 % notest ab. Not Available [facility] ([facility]) [address] [facility], [place], [address], 11/11/2023 13:11:34 11/10/19 24 11/11/2023 CBC WITH DIFFE RENTI AL/PL ATELE T monocytes 9 % notest ab. Not Available [facility] ([facility]) [address] [facility], [place], [address], 11/11/2023 13:11:34 11/10/19 24 11/11/2023 CBC WITH DIFFE RENTI AL/PL ATELE T eos 1 % notest ab. Not Available [facility] ([facility]) [address] [facility], [place], [address], 11/11/2023 13:11:34 11/10/19 24 11/11/2023 CBC WITH DIFFE RENTI AL/PL ATELE T basos 1 % notest ab. Not Available [facility] ([facility]) [address] [facility], [place], [address], 11/11/2023 13:11:34 11/10/19 24 11/11/2023 CBC WITH DIFFE RENTI AL/PL ATELE T neutrophils (absolute) 3.3 x10e3 /uL 1.4-7. 0 Not Available [facility] ([facility]) [address] [facility], [place], [address], 11/11/2023 13:11:34 11/10/19 24 11/11/2023 CBC WITH DIFFE RENTI AL/PL ATELE T lymphs (absolute) 1.0 x10e3 /uL 0.7-3. 1 Not Available [facility] ([facility]) [address] [facility], [place], [address], 11/11/2023 13:11:34 11/10/19 24 11/11/2023 CBC WITH DIFFE RENTI AL/PL ATELE T monocytes(ab solute) 0.4 x10e3 /uL 0.1-0. 9 Not Available [facility] ([facility]) [address] [facility], [place], [address], 11/11/2023 13:11:34 11/10/19 24 11/11/2023 CBC WITH DIFFE RENTI AL/PL ATELE T eos (absolute) 0.1 x10e3 /uL 0.0-0. 4 Not Available [facility] ([facility]) [address] [facility], [place], [address], 11/11/2023 13:11:34 11/10/19 24 11/11/2023 CBC WITH DIFFE RENTI AL/PL ATELE T baso (absolute) 0.0 x10e3 /uL 0.0-0. 2 Not Available [facility] ([facility]) [address] [facility], [place], [address], 11/11/2023 13:11:34 11/10/19 24 11/11/2023 CBC WITH DIFFE RENTI AL/PL ATELE T immature granulocytes 0 % notest ab. Not Available [facility] ([facility]) [address] [facility], [place], [address], 11/11/2023 13:11:34 11/10/19 24 11/11/2023 CBC WITH DIFFE RENTI AL/PL ATELE T immature grans (abs) 0.0 x10e3 /uL 0.0-0. 1 Not Available [facility] ([facility]) [address] [facility], [place], [address], 11/11/2023 13:11:34 11/10/19 24 11/11/2023 TRIIO DOTHY JUAN E (T3), FREE triiodothyro nine (T3), free 2.8 pg/mL 2.0-4. 4 Not Available [facility] ([facility]) [address] [facility], [place], [address], 11/11/2023 13:11:34 11/10/19 24 11/11/2023 T4,FR EE(DI RECT) T4,free(dire ct) 1.08 NG/dL 0.82-1 .77 Not Available [facility] ([facility]) [address] [facility], [place], [address], 11/11/2023 13:11:35 08/23/19 24 08/19/2023 US, echoc ardio gram [facility]ion [facility] [address] [place], [address], 08/24/2023 14:03:42 11/26/19 24 11/26/2023 US, carlos reynolds s, [facility] mity No observ ation record ed. [facility] [address] [place], [address], 12/03/2023 10:20:34 Result Notes None recorded. Problems Name Problem SNOMED Code Status Onset Date Resolution Date Notes Provider Name and Address Organization Details Recorded Time Type 2 diabetes mellitus 82881444 Active [address] [place] null, [place] - [facility] 4 16:56:58 Essential hypertension 03270602 Active [address] [place] null, [place] - [facility] 4 16:56:59 Obesity 491775164 Active 2023 Jennifer Perez MD Attn: Miguel barros,[address] [facility], [place], [address], [place] - [facility] 4 21:10:35 Hyperlipidemia 75664251 Active 2023 Jennifer Perez MD Attn: Miguel barros,[address], [place], [address], [facility] - [facility] 4 21:10:37 Anxiety 81041435 Active 2023 Jennifer Perez MD Attn: Miguel barros,[address], [place], [address], [place] - [facility] 4 21:10:49 Edema of lower extremity 223489187 Active [address] [place] null, [place] - [facility] 4 11:45:25 Lymphedema of lower extremity 554435102 Active 2023 Jennifer Perez MD Attn: Miguel barros,[address], [place], [address], [facility] - [facility] 4 22:34:54 Problem Notes None recorded. Procedures Surgical History Date Name Laterality Status Provider Name and Address Organization Details Recorded Time Eye Surgery completed Karen subramanian MA [place] - [facility] 07/07/2023 16:07:39 Imaging Results Imaging Date Name Status LastModified by Organization Details LastModified Time 08/19/2023 US, echocardiogram completed [facility] [address] [place], [address], 08/24/2023 14:03:42 11/26/2023 US, duplex, venous, lower extremity completed [facility] [address] [place], [address], 12/03/2023 10:20:34 Procedure Notes None recorded. Medical [...] Not Available Not Available No t Available montelukast 10 mg tablet TAKE 1 TABLET BY MOUTH EVERY DAY 2024 active Not Available Not Available Not Avai lable furosemide 20 mg tablet TAKE 1 TABLET [...] Avai lable Vitals Date Recorded Body height Body mass index (BMI) Body weight Body temperature Oxygen saturation Oxygen saturation in Arterial blood by Pulse oximetry Heart rate Systolic blood pressure Diastolic blood pressure Provider Name and Address Organization Details Last Updated DateTime 4 170.18 cm 47.8 kg/m2 536099. 67 g 98.5 [degF] 97 % 97 % 62 /min 118 mm[Hg] 82 mm[Hg] Karen Gomez MA [facility] 4 16:14:02 Date Recorded Body height Body mass index (BMI) Body weight Heart rate Oxygen saturation Oxygen saturation in Arterial blood by Pulse oximetry Systolic blood pressure Diastolic blood pressure Provider Name and Address Organization Details Last Updated DateTime 4 170.18 cm 44.9 kg/m2 059287. 29 g 68 /min 91 % 91 % 116 mm[Hg] 76 mm[Hg] Nataly Butler MA [facility] 4 11:24:18 Date Recorded Body height Body mass index (BMI) Body weight Heart rate Oxygen saturation Oxygen saturation in Arterial blood by Pulse oximetry Systolic blood pressure Diastolic blood pressure Provider Name and Address Organization Details Last Updated DateTime 4 170.18 cm 44.6 kg/m2 782275. 83 g 56 /min 95 % 95 % 122 mm[Hg] 68 mm[Hg] Edouard Balderrama MA [facility] 4 15:24:54 Date Recorded Body height Body mass index (BMI) Body weight Heart rate Oxygen saturation Oxygen saturation in Arterial blood by Pulse oximetry Systolic blood pressure Diastolic blood pressure Provider Name and Address Organization Details Last Updated DateTime 170.18 cm 44.8 kg/m2 329437. 78 g 56 /min 96 % 96 % 124 mm[Hg] 68 mm[Hg] Sera Vela MA [facility] 14:57:23 Date Recorded Pain severity - 0-10 verbal numeric rating [Score] - Reported Provider Name and Address Organization Details Last Updated DateTime 11/17/2023 0 Jocelyne Hernandez [facility] 11/17/2023 14:59:37 Date Recorded Body height Body mass index (BMI) Body weight Heart rate Oxygen saturation Oxygen saturation in Arterial blood by Pulse oximetry Systolic blood pressure Diastolic blood pressure Provider Name and Address Organization Details Last Updated DateTime 170.18 cm 45.1 kg/m2 776758. 24 g 56 /min 100 % 100 % 110 mm[Hg] 68 mm[Hg] Juliet Hazel MA [facility] 15:14:47 Social History Question Answer Notes LastModified by Organizat ion Details LastModified Time Tobacco Smoking Status Never Smoker Karen Gomez MA [facility], [facility] 07/07/2023 16:06:49 Do You Have An Advance [...] Or The Highest Degree You Have Received? [id number] Information not available 11/17/2023 Are There Any Guns Present In Your Home? No Information not available 11/17/2023 In The Past 7 Days, How Much Pain Have You [place]? None Information not available 11/17/2023 In General, [...] Past 7 Days, How Often Have You [place] Sleepy In The Daytime? Rarely Information not [...] Anxious, Or Unable To Sleep At Night)? [id number] Information not available 11/17/2023 Do You Use [...] Response Coronary Artery Disease N Other N High Blood Pressure Y Atrial Fibrillation N Kidney or Bladder Problems N Thyroid Problems N GI Problems Y Depression Y COPD N Blood Clots N Have you had a mammogram in the last yea r? N Skin Problems N Anemia N Heart Attack ([place]) N Anxiety Disorder Y Diabetes Y Muscle, Joint, or Bone Problems Y Seizures/Epilepsy N Have you had a colonoscopy in the last 1 0 years? Y Acid Reflux (GERD) N Cancer N Stroke N Asthma Y Allergies N Have you had a PSA blood test in the las t year? N High Cholesterol Y Hepatitis N Liver Disease N Headaches N Heart Failure N Osteoporosis N Immunizations Vaccine Type Date Status Note Provider Nam e and Address Organization Details Recorded Time Influenza, high-dose, quadrivalent, PF 3 completed Edouard Balderrama [place] null, [place] - [facility] 11/10/2023 15:19:16 COVID-19, mRNA, LNP-S, PF, 100 mcg/0.5mL dose or 50 mcg/0.25mL dose 1 completed Edouard Balderrama [place], [place] - [facility] 11/10/2023 15:19:16 COVID-19, mRNA, LNP-S, PF, 100 mcg/0.5mL dose or 50 mcg/0.25mL dose 1 completed WENDY Piper, [place] - [facility] 11/10/2023 15:19:16 Pneumococcal conjugate PCV20, polysaccharide [id number] conjugate, adjuvant, PF 3 completed Edouard Balderrama [place], [place] [facility] 11/10/2023 15:19:16 Influenza, split virus, quadrivalent, PF 7 completed WENDY [place], [place] - [facility] 11/10/2023 15:19:16 Influenza, split virus, quadrivalent, PF 0 completed Edouard Balderrama [place], [place] [facility] 11/10/2023 15:19:16 Influenza, high-dose, trivalent, PF 4 completed Jennifer Perez MD Attn: Accounting,[address] [place], [address], [place] - [facility] 02/09/2024 22:34:38 Past Encounters Encounter ID Performer Location Encounter Start Date Encounter Closed Date Diagnosis/Indication Diagnosis SNOMED-CT Code Diagnosis ICD10 Code Diagnosis Note [id number] MD [facility]ries Bourne (Adult Med) [address] [place] [phone] 07/07/2023 15:46:49 07/07/2023 16:55:22 Essential hypertension 76014724 I10 Type 2 ivy betes mellitus 89233610 E11.9 Obesity 733344801 E66.9 Hyperlipidemia 36125823 E78.5 Anxiety 46715175 F41.9 [id number] MD [facility]ries Bourne (Adult Med) [address] [place] [phone] 08/11/2023 11:10:27 08/11/2023 12:03:41 Edema of lower extremity 799519696 R60.0 Type 2 ivy betes mellitus 75173417 E11.9 [id number] MD Aries Bourne (Adult Med) [address] [place] [phone] 11/10/2023 15:09:39 11/10/2023 16:09:53 Morbid obesity 231400316 E66.01 Essential hypertension 83407525 I10 Hyperlipidemia 35403955 E78.5 Type 2 ivy betes mellitus 20533374 E11.9 Fatigue 97819743 R53.83 [id number] Jennifer Perez MD [facility] (Adult Med) [address] [place] [id number] 11/17/2023 14:50:42 11/17/2023 15:12:51 Adult health examination 983911172 Z00.00 Health Risk Assessment collected and reviewed Type 2 ivy betes mellitus 52060856 E11.9 [id number] MD [facility]ries Bourne (Adult Med) [address] [place] [phone] 02/09/2024 15:01:07 02/09/2024 15:56:07 Body mass index 40+ - severely obese 359099708 Z68.42 Morbid obesity 229471439 E66.01 Onychomyco sis of toenails 247794895 B35.1 Polyp of colon 18671740 K63.5 Screening for malignant neoplasm of prostate 820833910 Z12.5 Administra tion of influenza vaccine 00535533 Z23 Essential hypertension 96328655 I10 Hyperlipidemia 73053003 E78.5 Obesity 908060106 E66.9 Type 2 ivy betes mellitus 88574778 E11.9 Lymphedema of lower extremity 668012696 I89.0 Health Concerns Section Related Observation LastModified by Organization Detai ls LastModified Time None Recorded Concern Status LastModified by Organization Details LastModified Time None Recorded Advance Directives Directive N: Payers Encounter Date Sequence Insurance Name Policy Number Policy Christian Covered Member ID Christian Member ID Guarantor Name 07/07/2023 1 [facility] (MEDICARE REPLACEMENT/A DVANTAGE - HMO) [id number] Julio Cesar Sterling [id number] Julio Cesar Sterling 08/11/2023 1 [facility] (MEDICARE REPLACEMENT/A DVANTAGE - HMO) [id number] Julio Cesar Shane Box [id number] Julio Cesar Box 11/10/2023 1 [facility] (MEDICARE REPLACEMENT/A DVANTAGE - HMO) [id number] Juli Ocesar L Box [id number] Julio Cesar Box 11/17/2023 1 [facility] (MEDICARE REPLACEMENT/A DVANTAGE - HMO) [id number] Julio Cesar L Box [id number] Julio Cesar Box 02/09/2024 1 [facility] (MEDICARE REPLACEMENT/A DVANTAGE - HMO) [id number] Julio Cesar Box [id number] Julio Cesar Box Notes Date Note Type Note Provider Name and Address Organization Details Recorded Time 07/07/2023 text/html Hypertension no headache or dizziness. Diabetes no polyphasia no polydipsia. Obesity trouble losing weight hyperlipidemia try to follow low-fat diet anxiety doing well on sertraline Jennifer Perez MD Attn: Accounting[address] [place], [address], [facility] 07/07/2023 21:11:44 08/11/2023 text/html Acute appointmen t for some swelling in his legs has been going on for a few weeks without chest pain shortness of breath palpitations no clear PND or orthopnea no prolonged car trips or airplane trips Jennifer Perez MD Attn: Accounting,[address] [place], [address], [facility] 08/16/2023 23:12:42 11/10/2023 text/html Hypertension no headache or dizziness. Diabetes no polyphasia no polydipsia. Obesity trouble losing weight hyperlipidemia try to follow low-fat diet anxiety doing well on sertraline. Swelling in the legs maybe a little bit worse some fatigue 0 PND or orthopnea Jennifer Perez MD Attn: Accounting,[address] [place], [address], [facility] 11/12/2023 21:01:01 11/17/2023 text/html MAW 2Reported bypatient.Diet [...] bathroom/shower Jennifer Perez MD Attn: Accounting[address] [place], [address], [facility] 11/28/2023 16:48:40 02/09/2024 text/html lymphedema getti ng his legs wrapped doing better. Hypertension no headache or dizziness. Hyperlipidemia he says he is watching his saturated fat. Obesity struggles losing weight diabetes no polyphagia or polydipsia last A1c 6.13 months ago. He would like his toenail fungus treated and he is due for a colonoscopy Jennifer Perez MD Attn: Accounting[address] [place], [address], [facility] 02/09/2024 22:38:41
== END 2024-05-22 15:11 | disposition home or self-care (01) ==
PROVIDERS: PCP Internal Medicine; Visit Provider Internal Medicine
DX: R05.3 Chronic cough (principal)
CPT/HCPCS: 71046

== ENCOUNTER 2024-09-07 11:13 | Outpatient (CLI) | payer MEDICARE, SELFPAY ==
--- OUTSIDE RECORDS SUMMARY | 2024-09-07 11:20 | XMS_ITS | Data Portability ---
Author Organization [place] [facility] [employer], Main Office Address [address] [place] [id number] Care Team Providers Care Respiratory Therapist Name Role Phone JENNIFER PEREZ Primary Care Provider JENNIFER PEREZ Referring Provider [phone] Assessment Encounter Date Assessment Date Assessment LastModified by Organization Details LastModified Time 06/29/2022 06/29/2022 Follow-up 3 months could [email or web address] Not available 06/29/2022 20:50:01 08/10/2022 08/10/2022 Assessment: Very severe OSAHS, AHI = 47 Iron deficiency Vit B12 deficiency Vit E deficiency Plan: The following were reviewed and explained to the patient: primary care/referral note [facility] split night sleep study 11/19/20 [...] Patient will setup an appointment with [facility] for supplies and pressure adjustments. A major [...] work ordered Weight reduction Follow-up 4 months [email or web address] Not available 10/06/2022 08:36:33 02/01/2023 02/01/2023 Continue current therapy follow-up 4 months blood work ordered [email or web address] Not available 02/01/2023 20:57:39 02/23/2023 02/23/2023 Assessment: Very severe OSAHS, AHI = 47 Iron deficiency Vit B12 deficiency Vit E deficiency Plan: The following were reviewed and explained to the patient: [facility] split night sleep study 11/19/20 [...] Patient will setup an appointment with [facility] for supplies and pressure adjustments. A major [...] further management. Follow-up: 6 months, August 2023 [email or web address] Not available 02/23/2023 15:22:34 Plan of Treatment Reminders Order Date Submit Date Provider Last Modified By Organization Details Last Modified Time Details Appointments None recorded. Lab vitamin B12, serum 2022 024 [email or web address] 25 [facility] (Lab), [address] [place], [address], 14:27:05 ferritin, serum or plasma 2022 024 [email or web address] 25 [facility] (Lab), [address] [place], [address], 14:27:05 vitamin E, serum 2022 024 [email or web address] 25 [facility] (Lab), [address] [place], [address], 4 14:27:05 CMP, serum or plasma 2022 023 [facility] (Lab), [address] [place], [address], 19:06:51 lipid panel, serum 2022 023 [facility] (Lab), [address] [place], [address], 3 19:06:58 [email or web address] obin, total, blood 2022 023 [facility] (Lab), [address] [place], [address], 3 19:48:41 vitamin B12, serum [email or web address] (Lab), [address] [place], [address], 3 12:54:44 ferritin, serum or plasma [address] (Lab), [address] [place], [address], 12:54:44 vitamin E, serum [address] (Lab), [address] [place], [address], 3 12:54:44 Referral None recorded. Procedures None recorded. Surgeries None recorded. Imaging None recorded. Medication Orders cyanocobala min (vit B-12) 1,000 mcg tablet [address] [id number], [address], [place], [place], [id number], 3 15:18:29 ferrous sulfate 325 mg (65 mg iron) tablet 2022 023 [facility][id number], [address], [place], [place], [id number], 3 15:18:23 Vitamin C 500 mg tablet 2022 023 [facility] #[id number], [address], [place], [place], [id number], 15:18:27 vitamin E 200 unit capsule 2022 023 [facility] #86304, [address], [place], [place], [id number], 3 15:18:27 cyanocobala min (vit B-12) 1,000 mcg tablet 2022 023 [facility] #62324, [address], [place], [place], [id number], 3 12:09:14 ferrous sulfate 325 mg (65 mg iron) tablet 2022 023 [facility] #29377, [address], [place], [place], [id number], 3 12:09:17 Vitamin C 500 mg tablet 2022 023 [facility] #85635, [address], [place], [place], [id number], 3 12:09:15 vitamin E mixed 200 unit tablet 2022 023 [facility] #[id number], [address], [place], [place], [id number], 3 12:09:13 Patient TargetsNo targets recorded. Patient Instructions Encounter Date Encounter Id Patient Instructions Last Modified By Organization Details Last Modified Time 10/05/2022 [id number] dementia rating scale-2* [email or web address] Not available 10/06/2022 08:36:54 alcohol misuse* [email or web address] Not available 10/06/2022 08:36:54 depression screening* Not available 10/06/2022 08:36:53 multi-dimensiona l health assessment questionnaire* Not available 10/06/2022 08:36:54 advance care planning: care instructions Not available 10/06/2022 08:36:53 advance directiv es: care instructions [email or web address] Not available 10/06/2022 08:36:54 [place] Advance Directives Not available 10/06/2022 08:36:54 Personalized [facility] Plan and Screening Recommendations Advance Directives - Do you have one? No You have indicated that you are capable of preparing your advance care directive I recommend consulting with an Gripper Machine Operator, family member, or friend to assist you. Info given Advance Directives - Do we have your advance directive on file in your health record? Primary Prevention/Interven tion (prevents or decreases the chance of common diseases from occurring) Smoking Risk: Non Smoker Alcohol Misuse Screening: Negative Weight: Overweight try to lose 10% of your body weight Physical activity: Need more exercise/physical activity Nutrition: Average Refer to attached handout Heart-Healthy Diet: After Your Visit Refer to attached handout DASH Diet: After Your Visit Recommend consultation with a clearing hand Eat heart healthy diet Fall Risk (screened today): Low Refer to attached handout Preventing Falls: After your Visit Recommend regular use of cane or walker Referral for physical therapy Referral for home health nurse evaluation Referral for home health nurse evaluation with physical therapy I have no recommendations Vaccines Pneumococcal: Recommended today Influenza: Your next one in the fall of this year Chronic Disease Risks Stroke: Intermediate Risk Active diagnosis, Continue current treatment plan Heart Attack: Intermediate Risk Active diagnosis, Continue current treatment plan Clogging of the Arteries: Intermediate Risk Active diagnosis, Continue current treatment plan Diabetes: Intermediate Risk Active diagnosis, Continue current treatment plan Secondary Prevention/Interven tion (detects treatable diseases before they may cause symptoms, disability, or ) Prostate Cancer Screening: Your next PSA in: No PSA screening necessary recommend ed Colon Cancer Screening: Colonoscopy In: Ordered Recomme nded Recommended today, but you have declined No screening necessary due 2023 Date Screening Last Performed: _2021 Eye Disease Screening: Ordered Recommended today Recommended today, but you have declined No Eye exam necessary Your next exam in: goes yearly Dementia Risk: Low I have no recommendations Depression Screening: Negative Active diagnosis, Continue current treatment plan [email or web address] Not available 10/05/2022 14:48:13 Reason for Referral None Reported. Results Created Date Observation Date Name Description Value Unit Range Abnormal Flag Note LastModifiedBy Organization Detail LastModifiedTime 10/06/19 23 10/05/2022 CBC/C OMPLE TE BLD COUNT W/DIF F white blood cells 3.9 x10'3 /uL 4.2-10 .8 low Not Available [facility] (Lab) [address] [place], [address], 10/05/2022 18:35:59 10/06/19 23 10/05/2022 CBC/C OMPLE TE BLD COUNT W/DIF F red blood cells 4.40 x10'6 /uL 4.10-5 .80 Not Available [facility] (Lab) [address] [place], [address], 10/05/2022 18:35:59 10/06/19 23 10/05/2022 CBC/C OMPLE TE BLD COUNT W/DIF F hemoglobin 14.5 g/dL 13.2-1 7.0 Not Available [facility] (Lab) [address] [place], [address], 10/05/2022 18:35:59 10/06/19 23 10/05/2022 CBC/C OMPLE TE BLD COUNT W/DIF F hematocrit 44.3 % 39.3-5 0.0 Not Available [facility] (Lab) [address] [place], [address], 10/05/2022 18:35:59 10/06/19 23 10/05/2022 CBC/C OMPLE TE BLD COUNT W/DIF F mean red cell volume 100.7 fL 80.0-9 7.0 high Not Available [facility] (Lab) [address] [place], [address], 10/05/2022 18:35:59 10/06/19 23 10/05/2022 CBC/C OMPLE TE BLD COUNT W/DIF F mean red cell hemoglobin 33.0 pg 27.0-3 3.0 Not Available [facility] (Lab) [address] [place], [address], 10/05/2022 18:35:59 0610/05/2022 CBC/C OMPLE TE BLD COUNT W/DIF F mean RBC HGB concentratio n 32.7 g/dL 31.0-3 6.0 Not Available [facility] (Lab) [address] [place], [address], 10/05/2022 18:35:59 10/06/19 23 10/05/2022 CBC/C OMPLE TE BLD COUNT W/DIF F red cell distribution width 12.4 % 11.8-1 5.5 Not Available [facility] (Lab) [address] [place], [address], 10/05/2022 18:35:59 10/06/19 23 10/05/2022 CBC/C OMPLE TE BLD COUNT W/DIF F platelets 185 x10'3 /uL 150-40 0 Not Available [facility] (Lab) [address] [place], [address], 10/05/2022 18:35:59 10/06/19 23 10/05/2022 CBC/C OMPLE TE BLD COUNT W/DIF F mean platelet volume 10.2 fL 9.0-12 .4 Not Available [facility] (Lab) [address] [place], [address], 10/05/2022 18:35:59 10/06/19 23 10/05/2022 CBC/C OMPLE TE BLD COUNT W/DIF F neutrophils 67.9 % 39.0-7 2.0 Not Available [facility] (Lab) [address] [place], [address], 10/05/2022 18:35:59 10/06/1910/05/2022 CBC/C OMPLE TE BLD COUNT W/DIF F lymphocytes 22.2 % 16.0-4 7.0 Not Available [facility] (Lab) [address] [place], [address], 10/05/2022 18:35:59 06/26/20 23 10/05/2022 CBC/C OMPLE TE BLD COUNT W/DIF F monocytes 7.5 % 5.0-12 .0 Not Available [facility] (Lab) [address] [place], [address], 10/05/2022 18:35:59 10/06/19 23 10/05/2022 CBC/C OMPLE TE BLD COUNT W/DIF F eosinophils 1.6 % 1.0-7. 0 Not Available [facility] (Lab) [address] [place], [address], 10/05/2022 18:35:59 10/06/19 23 10/05/2022 CBC/C OMPLE TE BLD COUNT W/DIF F basophils 0.5 % 0.0-2. 0 Not Available [facility] (Lab) [address] [place], [address], 10/05/2022 18:35:59 10/06/1910/05/2022 CBC/C OMPLE TE BLD COUNT W/DIF F immature granulocytes 0.3 % 0.00-0 .50 Not Available [facility] (Lab) [address] [place], [address], 10/05/2022 18:35:59 10/06/19 23 10/05/2022 CBC/C OMPLE TE BLD COUNT W/DIF F neutrophils, absolute count 2.63 x10'3 /uL 1.5-8. 0 Not Available [facility] (Lab) [address] [place], [address], 10/05/2022 18:35:59 10/06/1910/05/2022 CBC/C OMPLE TE BLD COUNT W/DIF F lymphocytes, absolute count 0.86 x10'3 /uL 1.07-3 .43 low Not Available [facility] (Lab) [address] [place], [address], 10/05/2022 18:35:59 10/06/19 23 10/05/2022 CBC/C OMPLE TE BLD COUNT W/DIF F monocytes, absolute count 0.29 x10'3 /uL 0.29-0 .99 Not Available [facility] (Lab) [address] [place], [address], 10/05/2022 18:35:59 10/06/19 23 10/05/2022 CBC/C OMPLE TE BLD COUNT W/DIF F eosinophils, absolute count 0.06 x10'3 /uL 0.02-0 .53 Not Available [facility] (Lab) [address] [place], [address], 10/05/2022 18:35:59 10/06/19 23 10/05/2022 CBC/C OMPLE TE BLD COUNT W/DIF F basophils, absolute count 0.02 x10'3 /uL 0.01-0 .08 Not Available [facility] (Lab) [address] [place], [address], 10/05/2022 18:35:59 10/06/19 23 10/05/2022 CBC/C OMPLE TE BLD COUNT W/DIF F immature granulocytes ,absolute 0.01 x10'3 /uL 0.00-0 .05 Not Available [facility] (Lab) [address] [place], [address], 10/05/2022 18:35:59 10/06/19 23 10/05/2022 CBC/C OMPLE TE BLD COUNT W/DIF F nucleated red blood cells 0.0 % -0 Not Available [facility] (Lab) [address] [place], [address], 10/05/2022 18:35:59 10/06/19 23 10/05/2022 CBC/C OMPLE TE BLD COUNT W/DIF F NRBC# 0.00 x10'3 /uL Not Available [facility] (Lab) [address] [place], [address], 10/05/2022 18:35:59 10/06/19 23 10/05/2022 COMPR EHENS NIMISHA METAB OLIC PANEL sodium 144 mmol/ L 137-14 5 Not Available [facility] (Lab) [address] [place], [address], 10/05/2022 18:43:28 10/06/19 23 10/05/2022 COMPR EHENS NIMISHA METAB OLIC PANEL potassium 4.1 mmol/ L 3.5-5. 1 Not Available [facility] (Lab) [address] [facility] [place], [address], 10/05/2022 18:43:28 10/06/19 23 10/05/2022 COMPR EHENS NIMISHA METAB OLIC PANEL chloride 107 mmol/ L 98-107 Not Available [facility] (Lab) [address] [place], [address], 10/05/2022 18:43:28 10/06/19 23 10/05/2022 COMPR EHENS NIMISHA METAB OLIC PANEL carbon dioxide 27 mmol/ L 22-30 Not Available [facility] (Lab) [address] [place], [address], 10/05/2022 18:43:28 10/06/19 23 10/05/2022 COMPR EHENS NIMISHA METAB OLIC PANEL anion gap 14.1 mmol/ L 14-22 Not Available [facility] (Lab) [address] [place], [address], 10/05/2022 18:43:28 10/06/19 23 10/05/2022 COMPR EHENS NIMISHA METAB OLIC PANEL glucose 132 mg/dL 70-99 high Not Available [facility] (Lab) [address] [place], [address], 10/05/2022 18:43:28 0610/05/2022 COMPR EHENS NIMISHA METAB OLIC PANEL BUN 13 mg/dL 8-19 Not Available [facility] (Lab) [address] [place], [address], 10/05/2022 18:43:28 10/06/19 23 10/05/2022 COMPR EHENS NIMISHA METAB OLIC PANEL creatinine 0.60 mg/dL 0.66-1 .25 low Not Available [facility] (Lab) [address] [place], [address], 10/05/2022 18:43:28 10/06/19 23 10/05/2022 COMPR EHENS NIMISHA METAB OLIC PANEL GFR >60 Refer ence Range : [place] GFR Healt hy Adult : >60 [...] calcu lator is avail able on the F websi te: https :[email or web address] rg/pr ofess ional s/kdo qi/gf r_cal culat or Not Available [facility] (Lab) [address] [place], [address], 10/05/2022 18:43:28 10/06/19 23 10/05/2022 COMPR EHENS NIMISHA METAB OLIC PANEL alkaline phosphatase 70 U/L 38-126 Not Available [facility] (Lab) [address] [place], [address], 10/05/2022 18:43:28 10/06/19 23 10/05/2022 COMPR EHENS NIMISHA METAB OLIC PANEL alanine aminotransfe rase 27 U/L 0-50 Not Available [facility] (Lab) [address] [place], [address], 10/05/2022 18:43:28 10/06/19 23 10/05/2022 COMPR EHENS NIMISHA METAB OLIC PANEL aspartate aminotransfe rase 30 U/L 15-46 Not Available [facility] (Lab) [address] [place], [address], 10/05/2022 18:43:28 10/06/19 23 10/05/2022 COMPR EHENS NIMISHA METAB OLIC PANEL bilirubin, total 0.50 mg/dL 0.20-1 .30 Not Available [facility] (Lab) [address] [place], [address], 10/05/2022 18:43:28 10/06/19 23 10/05/2022 COMPR EHENS NIMISHA METAB OLIC PANEL calcium 8.9 mg/dL 8.4-10 .2 Not Available [facility] (Lab) [address] [place], [address], 10/05/2022 18:43:28 10/06/19 23 10/05/2022 COMPR EHENS NIMISHA METAB OLIC PANEL total protein 6.1 g/dL 6.3-8. 2 low Not Available [facility] (Lab) [address] [place], [address], 10/05/2022 18:43:28 10/06/19 23 10/05/2022 COMPR EHENS NIMISHA METAB OLIC PANEL albumin 3.3 g/dL 3.0-4. 4 Not Available [facility] (Lab) [address] [place], [address], 10/05/2022 18:43:28 10/06/19 23 10/05/2022 COMPR EHENS NIMISHA METAB OLIC PANEL globulin 2.8 g/dL 2.6-4. 2 Not Available [facility] (Lab) [address] [place], [address], 10/05/2022 18:43:28 10/06/19 23 10/05/2022 COMPR EHENS NIMISHA METAB OLIC PANEL A/G ratio 1.2 ratio 1.0-2. 0 Not Available [facility] (Lab) [address] [place], [address], 10/05/2022 18:43:28 10/06/19 23 10/05/2022 PSA SCREE N PSA medicare screen 1.16 NG/mL 0.00-4 .00 Not Available [facility] (Lab) [address] [place], [address], 10/05/2022 19:05:30 10/06/19 23 10/05/2022 BNP/B -NATR IURET IC PEPTI DE BNP 130 pg/mL 4-125 high Not Available [facility] (Lab) [address] [place], [address], 10/05/2022 19:07:26 10/06/19 23 10/05/2022 HEMOG LOBIN A1C HA1C 6.1 % 4.0-6. 0 high Diabe nghia Scree paul Crite gloria: <5.7% Consi stent with absen ce of diabe nghia 5.7-6 .4% Consi stent with incre ased risk for diabe nghia (pred iabet es) >OR=6 .5% Consi stent with diabe nghia REFER ENCE: Diabe nghia Care 2016, 39( ppl.1 ):s13 -s22 Not Available [facility] (Lab) [address] [place], [address], 10/05/2022 20:04:41 02/03/20 23 02/02/2023 COMPR EHENS NIMISHA METAB OLIC PANEL sodium 140 mmol/ L 137-14 5 Not Available [facility] (Lab) [address] [place], [address], 02/02/2023 19:06:51 02/03/20 23 02/02/2023 COMPR EHENS NIMISHA METAB OLIC PANEL potassium 4.1 mmol/ L 3.5-5. 1 Not Available [facility] (Lab) [address] [place], [address], 02/02/2023 19:06:51 02/03/20 23 02/02/2023 COMPR EHENS NIMISHA METAB OLIC PANEL chloride 106 mmol/ L 98-107 Not Available [facility] (Lab) [address] [place], [address], 02/02/2023 19:06:51 02/03/20 23 02/02/2023 COMPR EHENS NIMISHA METAB OLIC PANEL carbon dioxide 31 mmol/ L 22-30 high Not Available [facility] (Lab) [address] [place], [address], 02/02/2023 19:06:51 02/03/20 23 02/02/2023 COMPR EHENS NIMISHA METAB OLIC PANEL anion gap 7.1 mmol/ L 14-22 low Not Available [facility] (Lab) [address] [place], [address], 02/02/2023 19:06:51 02/03/20 23 02/02/2023 COMPR EHENS NIMISHA METAB OLIC PANEL glucose 137 mg/dL 70-99 high Not Available [facility] (Lab) [address] [place], [address], 02/02/2023 19:06:51 02/03/20 23 02/02/2023 COMPR EHENS NIMISHA METAB OLIC PANEL BUN 16 mg/dL 8-19 Not Available [facility] (Lab) [address] [place], [address], 02/02/2023 19:06:51 02/03/20 23 02/02/2023 COMPR EHENS NIMISHA METAB OLIC PANEL creatinine 0.69 mg/dL 0.66-1 .25 Not Available [facility] (Lab) [address] [place], [address], 02/02/2023 19:06:51 02/03/20 23 02/02/2023 COMPR EHENS NIMISHA METAB OLIC PANEL GFR >60 Refer ence Range : [place] GFR Healt hy Adult : >60 [...] or ethni c subgr oups, such as [facility] nics. Outsi de the valid ated chalino [...] calcu lator is avail able on the [facility] websi te: [email or web address] :[email or web address] [email or web address] rg/pr ofess ional s/kdo qi/gf r_cal culat or Not Available [facility] (Lab) [address] [place], [address], 02/02/2023 19:06:51 02/03/2002/02/2023 COMPR EHENS NIMISHA METAB OLIC PANEL alkaline phosphatase 92 U/L 38-126 Not Available [facility] (Lab) [address] [place], [address], 02/02/2023 19:06:51 02/03/2002/02/2023 COMPR EHENS NIMISHA METAB OLIC PANEL alanine aminotransfe rase 32 U/L 0-50 Not Available [facility] (Lab) [address] [place], [address], 02/02/2023 19:06:51 02/03/2002/02/2023 COMPR EHENS NIMISHA METAB OLIC PANEL aspartate aminotransfe rase 35 U/L 15-46 Not Available [facility] (Lab) [address] [place], [address], 02/02/2023 19:06:51 02/03/2002/02/2023 COMPR EHENS NIMISHA METAB OLIC PANEL bilirubin, total 0.70 mg/dL 0.20-1 .30 Not Available [facility] (Lab) [address] [place], [address], 02/02/2023 19:06:51 02/03/2002/02/2023 COMPR EHENS NIMISHA METAB OLIC PANEL calcium 9.1 mg/dL 8.4-10 .2 Not Available [facility] (Lab) [address] [place], [address], 02/02/2023 19:06:51 02/03/2002/02/2023 COMPR EHENS NIMISHA METAB OLIC PANEL total protein 6.7 g/dL 6.3-8. 2 Not Available [facility] (Lab) [address] [place], [address], 02/02/2023 19:06:51 02/03/2002/02/2023 COMPR EHENS NIMISHA METAB OLIC PANEL albumin 3.8 g/dL 3.0-4. 4 Not Available [facility] (Lab) [address] [place], [address], 02/02/2023 19:06:51 02/03/2002/02/2023 COMPR EHENS NIMISHA METAB OLIC PANEL globulin 2.9 g/dL 2.6-4. 2 Not Available [facility] (Lab) [address] [place], [address], 02/02/2023 19:06:51 02/03/2002/02/2023 COMPR EHENS NIMISHA METAB OLIC PANEL A/G ratio 1.3 ratio 1.0-2. 0 Not Available [facility] (Lab) [address] [place], [address], 02/02/2023 19:06:51 02/03/2002/02/2023 LIPID PANEL cholesterol 116 mg/dL 140-19 9 low NIH CORRY NSUS RECOM MENDA TION FOR APRIL STERO L: ADULT CHILD LOW RISK: <200 <170 BORDE RLINE : <200- 239 ----- HIGH RISK: >240 >200 Not Available [facility] (Lab) [address] [place], [address], 02/02/2023 19:06:57 02/03/2002/02/2023 LIPID PANEL triglyceride s 156 mg/dL 0-150 high NIH CORRY NSUS REPOR T RECOM MENDA TION FOR TRIGL YCERI FE: ADULT CHILD LOW RISK: <150 ----- BODER LINE: 150-1 99 ----- HIGH RISK: >200 ----- Not Available [facility] (Lab) [address] [place], [address], 02/02/2023 19:06:57 02/03/2002/02/2023 LIPID PANEL HDL cholesterol 37 mg/dL 40- low Not Available [facility] (Lab) [address] [place], [address], 02/02/2023 19:06:57 02/03/2002/02/2023 LIPID PANEL LDL cholesterol, [...] WILL NOT BE REPOR BABAR. Not Available [facility] (Lab) [address] [place], [address], 02/02/2023 19:06:57 02/03/2002/02/2023 HEMOG LOBIN A1C HA1C 6.0 % 4.0-6. 0 Diabe nghia Scree paul Crite gloria: <5.7% Consi stent with absen ce of diabe nghia 5.7-6 .4% Consi stent with incre ased risk for diabe nghia (pred iabet es) >OR=6 .5% Consi stent with diabe nghia REFER ENCE: Diabe nghia Care 2016, 39(Tomas ppl.1 ):s13 -s22 Not Available [facility] (Lab) [address] [place], [address], 02/02/2023 19:48:41 07/04/19 23 05/25/2022 XR, chest , 2 view No observ ation record ed. [email or web address] Not Available 06/11 13:38:48 Result Notes None recorded. Problems Name Problem SNOMED Code Status Onset Date Resolution Date Notes Provider Name and Address Organization Details Recorded Time Solitary nodule of lung 525095200 Active 2022 Not Available [facility] 21:30:34 Vitamin E deficiency 08727097 Active 2022 Not Available [facility] 3 21:30:34 Iron deficiency 93619957 Active 2022 Not Available [facility] 3 21:30:34 Vitamin B12 deficiency (non anemic) 51647711 Active 2022 Not Available [facility] 3 21:30:34 Obstructive sleep apnea syndrome 05712294 Active 2022 Not Available [facility] 3 21:30:34 Essential hypertension 35022066 Active 2022 Not Available [facility] 3 21:30:34 Irritable bowel syndrome 12006492 Active Not Available [facility] 3 21:30:33 Cobalamin deficiency 490587295 Active 2021 Not Available [facility] 3 21:30:34 Chronic depression 554992087 Active Not Available [facility] 3 21:30:34 Asthma 023426640 Active Not Available [facility] 3 21:30:34 Edema 503196181 Active Not Available [facility] 3 21:30:34 Low back pain 287400576 Active Not Available [facility] 3 21:30:34 Hypertriglyce ridemia 320124808 Active Not Available [facility] 3 21:30:34 Type 2 diabetes mellitus without complication 154465014 Active 2021 Not Available [facility] 3 21:30:34 Sinusitis 21429299 Active Not Available [facility] 3 21:30:34 Arthritis 8275417 Active Not Available [facility] 3 21:30:34 Obesity 682068891 Active Not Available [facility] 3 21:30:34 Screening for malignant neoplasm of prostate Active 2021 Not Available [facility] 3 21:30:34 Anxiety 41681329 Active 2021 Not Available [facility] 3 21:30:34 Hyperlipidemi a 37833709 Active Not Available [facility] 3 21:30:34 Chronic rhinitis 45472516 Active Not Available [facility] 21:30:34 Dystrophia unguium 60106501 Active 2021 Not Available [facility] 21:30:34 Notes:Medical History: Depre ssion/Anxiety Rhinitis with postnasal drip Obesity with very severe JOCELYNE, AHI = 47, 11/19/20, on CPAP c/o IVRC Mixed hyperlipidemia T2DM IBD Iron deficinecy Vit B12 deficiency Vit E deficiency PLMD Low back pain Procedure History: Right esotropia surgery 1960 Colonoscopy with polypectomy 2016 Colon resection 2016 Appendectomy 2016 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 Procedures Surgical History Date Name Laterality Status Provider Name and Address Organization Details Recorded Time 10/06/19 Medicare Wellness CPT Code, subsequent completed Lisa Bowman RN [facility] [employer] [facility] 10/05/2022 14:40:54 10/06/19 Advanced Care Planning completed Lisa Bowman RN [facility] 10/05/2022 14:42:28 Eye Surgery completed Not Available [facility] 06/10/2022 04:42:30 Appendectomy completed Not Available [facility] 06/10/2022 04:42:30 partial resection of colon completed Not Available [facility] 06/10/2022 04:42:30 operation on rectum completed Not Available [facility] 06/10/2022 04:42:30 Imaging Results None recorded. Procedure Notes None recorded. Medical Equipment None [...] Updated DateTime 3 170.18 cm 45.7 kg/m2 904778. 97 g 98.2 [degF] 63 /min 122 mm[Hg] 78 mm[Hg] KALEIGH Simpson [facility] [employer] [facility] 3 14:14:20 Date Recorded Heart rate Heart rate Respiratory rate Provider Name and Address Organization Details Last Updated DateTime 08/10/2022 60 /min 60 /min 15 /min Eusebio Barbosa MD [address] [facility], [place] [address], [place], [address], [facility] [employer] [facility] 08/10/2022 11:49:15 Date Recorded Body height Body mass index (BMI) Body weight Body temperature Oxygen saturation Oxygen saturation in Arterial blood by Pulse oximetry Systolic blood pressure Diastolic blood pressure Provider Name and Address Organization Details Last Updated DateTime 3 170.18 cm 46 kg/m2 659981. 44 g 98.3 [degF] 95 % 95 % 118 mm[Hg] 70 mm[Hg] Jena Curry MA [facility] [employer] [facility] 3 11:48:53 Date Recorded Body height Body mass index (BMI) Body weight Body temperature Heart rate Systolic blood pressure Diastolic blood pressure Provider Name and Address Organization Details Last Updated DateTime 3 170.18 cm 45.9 kg/m2 046870. 56 g 98.1 [degF] 60 /min 120 mm[Hg] 86 mm[Hg] KALEIGH Simpson [facility] [employer] [facility] 3 14:29:46 Date Recorded Body height Body mass index (BMI) Body weight Body temperature Heart rate Systolic blood pressure Diastolic blood pressure Provider Name and Address Organization Details Last Updated DateTime 3 170.18 cm 46.7 kg/m2 860545. 53 g 98.4 [degF] 60 /min 122 mm[Hg] 76 mm[Hg] KALEIGH Simpson [facility] [employer] [facility] 3 15:26:43 Date Recorded Heart rate Heart rate Respiratory rate Provider Name and Address Organization Details Last Updated DateTime 02/23/2023 59 /min 59 /min 14 /min Eusebio Barbosa MD [address], [address], [place], [address], [employer] [facility] [employer] 02/23/2023 15:25:04 Date Recorded Body height Body mass index (BMI) Body weight Body temperature Oxygen saturation Oxygen saturation in Arterial blood by Pulse oximetry Systolic blood pressure Diastolic blood pressure Provider Name and Address Organization Details Last Updated DateTime 3 170.18 cm 46.4 kg/m2 984850. 34 g 97.7 [degF] 98 % 98 % 124 mm[Hg] 74 mm[Hg] Jena Curry MA [employer] 3 15:01:42 Social History Question Answer Notes LastModified by Organization Details LastModified Time Tobacco Smoking Status Never Smoker Not Available [employer] 06/10/2022 04:08:03 Do You Have An Advance Directive? No Patient Declined Information . MIGRATION.030 [id number] Information not available 06/10/2022 Are You Blind Or Do You Have Difficulty Seeing? No MIGRATION.030 584160 Information not available 06/10/2022 What Is Your Level Of Caffeine Consumption? Occasional MIGRATION.0301 575451 Information not available 06/10/2022 How Much Tobacco Do You Chew? None MIGRATION.030 249245 Information not available 06/10/2022 In The 14 Days Before Symptom Onset, Have You Had Close Contact With A Laboratory-confi rmed COVID-19 While That Case Was Ill? No MIGRATION.030 644924 Information not available 06/10/2022 In The 14 Days Before Symptom Onset, Have You Had Close Contact With A Person Who Is Under Investigation For COVID-19 While That Person Was Ill? No MIGRATION.0301 812128 Information not available 06/10/2022 Are You Deaf Or Do You Have Serious Difficulty Hearing? No MIGRATION.030 122455 Information not available 06/10/2022 What Type Of Diet Are You Following? REGULAR MIGRATION.0301 132312 Information not available 06/10/2022 Which Illicit Or Recreational Drugs Have You Used? None MIGRATION.030 756124 Information not available 06/10/2022 What Is The Highest Grade Or Level Of School You Have Completed Or The Highest Degree You Have Received? [id number] MIGRATION.0301 813595 Information not available 06/10/2022 Do You Have An Electrostatic Air Filter? No MIGRATION.0301 688125 Information not available 06/10/2022 Have There Been Any Changes To Your Family Or Social Situation? No MIGRATION.0301 988992 Information not available 06/10/2022 What Is The Fluoride Status Of Your Home? Unknown MIGRATION.0301 437285 Information not available 06/10/2022 Are There Any Guns Present In Your Home? No MIGRATION.0301 471995 Information not available 06/10/2022 Do You Have A Humidifier? Yes MIGRATION.0301 626479 Information not available 06/10/2022 Do You Use Insect Repellent Routinely? Yes MIGRATION.0301 835773 Information not available 06/10/2022 Where [facility] You [facility]? [facility] MIGRATION.0301 518125 Information not available 06/10/2022 Do You Have A Medical Power Of Gripper Machine Operator? No MIGRATION.0301 392228 Information not available 06/10/2022 Do You Have Moisture Problems In Your Home? No MIGRATION.0301 839793 Information not available 06/10/2022 What Was The Date Of Your Most Recent Tobacco Screening? 02/23/2023 [email or web address] Information not available 02/23/2023 Have You Ever Been Counseled For Unhealthy Alcohol Use? No MIGRATION.0301 958675 Information not available 06/10/2022 Do You Have Any Pets? No MIGRATION.0301 526843 Information not available 06/10/2022 What Is Your Relationship Status? MIGRATION.0301 809860 Information not available 06/10/2022 Do You Use Your Seat Belt Or Car Seat Routinely? Yes MIGRATION.0301 824314 Information not available 06/10/2022 Do You Have Smoke And Carbon Monoxide Detectors In Your Home? Yes MIGRATION.0301 476074 Information not available 06/10/2022 Are You Passively Exposed To Smoke? No MIGRATION.0301 977939 Information not available 06/10/2022 Are There Any Smokers In Your House? No MIGRATION.0301 732861 Information not available 06/10/2022 How Much Tobacco Do You Smoke? No MIGRATION.0301 845895 Information not available 06/10/2022 What Types Of Sporting Activities Do You Participate In? None MIGRATION.0301 922595 Information not available 06/10/2022 Do You Use Sunscreen Routinely? Yes MIGRATION.0301 336625 Information not available 06/10/2022 Has Tobacco Cessation Counseling Been Provided? No Not Needed-tre willis Smoked MIGRATION.0301 541791 Information not available 06/10/2022 How Many Years Have You Smoked Tobacco? 0 MIGRATION.0301 394145 Information not available 06/10/2022 Have You Recently Traveled Abroad? No MIGRATION.0301 449435 Information not available 06/10/2022 Do You Have Difficulty Walking Or Climbing Stairs? No MIGRATION.0301 394127 Information not available 06/10/2022 Do You Have Any Dietary Restrictions? No MIGRATION.0301 657629 Information not available 06/10/2022 Sex: Male Functional Status Question Answer Note LastModified by [employer] Details LastModified Time Do you use any illicit or recreational drugs? No MIGRATION.00525 61414 Information not available 06/10/2022 Do you or have you ever used any other forms of tobacco or nicotine? No MIGRATION.47455 19500 Information not available 06/10/2022 What is your level of alcohol consumption? Occasional rarely per pt MIGRATION.69668 83809 Information not available 06/10/2022 Do you or have you ever used smokeless tobacco? Never used smokeless tobacco MIGRATION.17420 68111 Information not available 06/10/2022 Do you have transportation difficulties? No MIGRATION.65248 60508 Information not available 06/10/2022 Are you able to walk? YESWOREST MIGRATION.19900 14801 Information not available 06/10/2022 Do you have difficulty doing errands alone? No MIGRATION.30475 91197 Information not available 06/10/2022 Are you able to care for yourself? Yes MIGRATION.93357 85703 Information not available 06/10/2022 Do you have difficulty dressing or bathing? No MIGRATION.68112 35625 Information not available 06/10/2022 Do you or have you ever used e-cigarettes or vape? Never used electronic cigarettes MIGRATION.55340 43446 Information not available 06/10/2022 What is your exercise level? None MIGRATION.82794 62485 Information not available 06/10/2022 Mental Status Question Answer Note LastModified by [employer] Details LastModified Time Do you feel stressed (tense, restless, nervous, or anxious, or unable to sleep at night)? [id number] MIGRATION.46269932 26 Information not available 06/10/2022 Do you have difficulty concentrating, remembering or making decisions? No MIGRATION.53346401 26 Information not available 06/10/2022 Family History Relationship Description Onset Age of this Age Resolved Age Notes LastModified by Organization Details LastModified Time Mother Diabetes mellitus MIGRATION.458 [id number] Not available 06/10/2022 04:42:31 Brother Malignant tumor of pharynx with METS MIGRATION.105 9752427 Not available 06/10/2022 04:42:31 Brother Obstructive sleep apnea syndrome MIGRATION.551 3546698 Not available 06/10/2022 04:42:31 Sister Malignant tumor of pharynx MIGRATION.674 6973283 Not available 06/10/2022 04:42:31 Father Chronic obstructive pulmonary disease deceas ed MIGRATION.632 2985011 Not available 06/10/2022 04:42:31 Father Diverticulit is MIGRATION.216 8274245 Not available 06/10/2022 04:42:31 Medical History Condition Response BLINDNESS N NERVE DISEASE N RHEUMATIC FEVER N BLADDER PROBLEMS N KIDNEY STONES N MRSA N OTHER # 1 Y [...] 3 completed Jennifer Perez MD [address] [facility], [address], [place], [address], [employer] 02/01/2023 20:57:54 Pneumococcal conjugate PCV20, polysaccharide EBU960 conjugate, adjuvant, PF 3 completed Jennifer Perez MD [address] [facility], [address], [place], [address], [employer] 10/06/2022 08:36:54 Past Encounters Encounter ID Performer Location Encounter Start Date Encounter Closed Date Diagnosis/Indication Diagnosis SNOMED-CT Code Diagnosis ICD10 Code Diagnosis Note [id number] Jennifer Perez MD [facility] Internal Med [facility] [address] [facility] [address] [place] [address] 10/09/2020 00:00:00 10/14/2020 18:30:32 [id number] Jennifer Perez MD [facility] Internal Med [facility] [address] [facility] [facility] [address] [place] [address] 05/09/2021 00:00:00 05/09/2021 20:29:44 [id number] Jennifer Perez MD [facility] Internal Med [place] [address] [place], [place] [address]., [facility] [address] [place] [address] 06/09/2021 00:00:00 06/14/2021 16:24:15 [id number] Teodoro booth MD [facility] Internal Med [facility] [address] [place] [address], [address] [address] 06/17/2021 00:00:00 06/17/2021 15:06:20 [id number] Jennifer Perez MD [facility] Internal Med [facility] [address] [place] [address] 07/07/2021 00:00:00 07/13/2021 17:57:38 [id number] Octavio Douglas DPM [facility] [address] [address] 07/10/2021 00:00:00 07/10/2021 10:23:45 [id number] Jennifer Perez MD [facility] Internal Med [facility] [address] [place] [address] 10/06/2021 00:00:00 10/06/2021 21:55:05 [id number] Eusebio Barbosa MD [facility] [address] [address] 10/15/2021 00:00:00 10/15/2021 15:21:44 [id number] Jennifer Perez MD [facility] Internal Med [facility] [address] [place] [address] 01/26/2022 00:00:00 01/26/2022 22:54:11 [id number] Eusebio Barbosa MD [facility] [address] [address] 02/10/2022 00:00:00 02/10/2022 15:21:02 [id number] Jennifer Perez MD [facility] Internal Med [facility] [address] [place] [address] 05/25/2022 00:00:00 05/31/2022 20:19:34 [id number] Jennifer Perez MD [facility] Internal Med [facility] [address] [place] [address] 06/29/2022 14:06:18 06/29/2022 15:22:21 Chronic rhinitis 77124358 J31.0 Type 2 ivy betes mellitus without complication 886112131 E11.9 [id number] Eusebio Barbosa MD [place] [address] 08/10/2022 11:33:57 08/11/2022 07:45:25 Solitary nodule of lung 219927835 R91.1 Vitamin E deficiency 541 91435 E56.0 Iron deficiency 11369906 E61.1 Vitamin B1 2 deficiency (non anemic) 50553627 E53.8 Obstructiv e sleep apnea syndrome 83734430 G47.33 [id number] Jennifer Perez MD [facility] Internal Med [facility] [address] [place] [address] 1 10/05/2022 14:15:43 10/05/2022 15:05:33 Adult health examination 948795727 Z00.00 Screening for disorder 763795045 Z13.9 Administra tion of pneumococcal vaccine 71326599 Z23 Asthma 180081911 J45.90 9 Edema 008036892 R60.9 Hyperlipidemia 55272127 E78.5 [id number] Jennifer Perez MD [facility] Internal [place] [address] [place] [address] 1 02/01/2023 15:15:21 02/01/2023 15:51:28 Hyperlipidemia 89188379 E78.5 Essential hypertension 86371119 I10 Type 2 ivy betes mellitus without complication 679442556 E11.9 Administra tion of influenza vaccine 34774999 Z23 [id number] Eusebio Barbosa MD [facility] [address] 02/23/2023 14:39:31 02/24/2023 08:19:01 Solitary nodule of lung 860569852 R91.1 Vitamin E deficiency 541 27128 E56.0 Iron deficiency 41008095 E61.1 Vitamin B1 2 deficiency (non anemic) 00470879 E53.8 Obstructiv e sleep apnea syndrome 92733799 G47.33 Health Concerns Section Related Observation LastModified by Organization Detai ls LastModified Time None Recorded Concern Status LastModified by Organization Details LastModified Time None Recorded Advance Directives Directive N: Patient declined informat ion. Payers Encounter Date Sequence Insurance Name Policy Number Policy Christian Covered Member ID Christian Member ID Guarantor Name 06/29/2022 1 [facility] (MEDICARE REPLACEMENT/A DVANTAGE - HMO) [id number] Julio Cesar Box [id number] Julio Cesar Box 08/10/2022 1 [facility] (MEDICARE REPLACEMENT/A DVANTAGE - HMO) [id number] Julio Cesar Box [id number] Julio Cesar Box 10/05/2022 1 [facility] (MEDICARE REPLACEMENT/A DVANTAGE - HMO) [id number] Julio Cesar L Box [id number] Julio Cesar Box 02/01/2023 1 [facility] (MEDICARE REPLACEMENT/A DVANTAGE - HMO) [id number] Julio Cesar Box [id number] Julio Cesar Box 02/23/2023 1 [facility] (MEDICARE REPLACEMENT/A DVANTAGE - HMO) [id number] Julio Cesar Box [id number] Julio Cesar Box Notes Date Note Type Note Provider Name and Address Organization Details Recorded Time 06/29/2022 text/html Cough gone rhini tis doing fine A1c 6.3 Jennifer Perez MD [address] [place] [address], [address], [facility] [employer] 06/29/2022 20:50:31 08/10/2022 text/html Primary care/Ref erring provider: Jennifer Perez MD During the [facility] split night sleep study on [...] of dozing. Eusebio Barbosa MD [address], [address], [place], [address], [employer] [facility] [employer] [facility] 08/10/2022 17:29:29 10/05/2022 text/html Diabetes no poly phagia polydipsia. Anxiety doing fine no SI or HI. Edema about the same. Dyslipidemia trying to watch his fat intake Medicare Wellness concluded Jennifer Perez MD [address], [place], [address], [employer] 10/06/2022 08:36:59 02/01/2023 text/html Diabetes no poly phagia polydipsia. Anxiety doing fine no SI or HI. Edema about the same. Dyslipidemia trying to watch his fat intake Jennifer Perez MD [address], [place], [address], [employer] 02/01/2023 20:57:58 02/23/2023 text/html Primary care/Ref erring provider: Jennifer Perez MD During the [facility] split night sleep study on [...] chance of dozing. Eusebio Barbosa MD [address] [address], [place], [address], [employer] [facility] 02/23/2023 15:25:43
--- OUTSIDE RECORDS SUMMARY | 2024-09-07 11:20 | XMS_ITS | Data Portability ---
Author Organization [facility] [place] C[place] Address [address] [place] [address] Care Team Providers Care Research Intern Name Role Phone JENNIFER PEREZ Primary Care Provider ALEX Mendiola Dietary Assistant Assessment Encounter Date Assessment Date Assessment LastModified by Organization Details LastModified Time 08/11/2023 08/11/2023 BNP CMP echo Lasix 20 mg daily he will let me know in a couple of days how he is doing hemoglobin A1c 6.1 [email or web address] Not available 08/16/2023 23:12:22 11/10/2023 11/10/2023 we will obtain blood work and a urinalysis CBC CMP lipid A1c T3-T4 TSH UA increase his Lasix to 40 b.i.d. for 3 days and then he will back down to his regular dose he will let me know in a few days how he is responding to that dose.rtc 3 months [email or web address] Not available 11/12/2023 21:00:42 11/17/2023 11/17/2023 comes [...] will get venous duplex with reflex studies [email or web address] Not available 11/28/2023 16:48:28 02/09/2024 02/09/2024 [email or web address] 250 daily times 12 weeks. Healthy lifestyle care instructions. Due for PSA flu shot colonoscopy he will consider COVID vaccination no change in his chronic medicines at this time all questions answered follow up in 4 months [email or web address] Not available 02/09/2024 22:36:37 06/07/2024 06/07/2024 EKG sinus bradycardia. CBC CMP lipid T3-T4 TSH B12 folic acid one-week Holter hemoglobin A1c follow up in months [email or web address] Not available 06/09/2024 16:28:34 Plan of Treatment Reminders Order Date Submit Date Provider Last Modified By Organization Details Last Modified Time Details Appointments ANY 15 2024 02:00P Shan Perez MD Not available Not available Not available Lab PSA, total, serum or plasma 2024 025 [facility], [address], [place], [address], 06/08/2024 13:12:14 HbA1c (hemoglob in A1c), blood 2024 025 [facility], [address], [place], [address], 06/08/2024 13:12:10 CMP, serum or plasma 2024 025 [facility], [address], [place], [address], 06/08/2024 13:12:07 lipid panel, serum 2024 025 [facility], [address], [place], [address], 06/08/2024 13:12:05 CBC w/ auto diff 2024 025 [facility], [address], [place], [address], 06/08/2024 13:12:12 TSH + free T4, serum 2024 025 [facility], [address], [place], [address], 06/08/2024 13:12:04 T3, free, serum or plasma 2024 025 [facility], [address], [place], [address], 06/08/2024 13:12:15 cobalamin and folate panel, serum 2024 025 [facility], [address], [place], [address], 06/08/2024 13:12:09 PSA, total, serum or plasma 2023 024 [facility], [address], [place], [address], 07/21/2024 11:20:36 HbA1c (hemoglob in A1c), blood 2023 024 [facility], [address], [place], [address], 11/11/2023 13:11:32 albumin/c reatinine , mass ratio, urine 2023 024 [facility], [address], [place], [address], 11/11/2023 13:11:30 lipid panel, serum 2023 [facility]24 [facility] [address], [place], [address], 11/11/2023 13:11:31 CMP, serum or plasma 2023 024 [facility], [address], [place], [address], 11/11/2023 13:11:31 CBC w/ auto diff 2023 024 [facility], [address], [place], [address], 11/11/2023 13:11:34 urinalysi s, microscop ic 2023 024 [facility], [address], [place], [address], 11/11/2023 13:11:32 T4, free, serum 2023 024 [facility], [address], [place], [address], 11/11/2023 13:11:35 T3, free, serum or plasma 2023 024 [facility], [address], [place], [address], 11/11/2023 13:11:35 TSH, ultra-sen sitive, serum 2023 024 [facility], [address], [place], [address], 11/11/2023 13:11:33 BNP (B-type natriuret ic peptide), blood 2023 024 [facility], [address], [place], [address], 08/24/2023 14:04:17 CMP, serum or plasma 2023 024 [facility], [address], [place], [address], 08/12/2023 10:12:43 HbA1c (hemoglob in A1c), blood 2023 024 [email or web address] In-Office Order, Internal Use Only DO Not Attach Compendium DO Not Attach Compendium, Do Not Delete/merge, [id number] 08/16/2023 23:12:41 Referral nutrition ist/dieti kaity referral [address] [facility], [address], [place], [address], 12/06/2023 14:13:12 Procedures colonosco py screening (PROC) - follow up, polyps 2023 024 [facility], [address], [address], [place], [address], 06/21/2024 11:22:59 Surgeries None recorded. Imaging holter monitor 2024 025 [facility], [address], [address], [place], [address], 07/13/2024 16:08:27 [place], [facility] ogram 2023 024 [facility] ([facility]), [address], [place], [address], 08/23/2023 14:30:26 Medication Orders terbinafi ne HCl 250 mg tablet 2023 024 [email or web address] [id number], [address], [place], [place], [id number], 02/09/2024 16:52:58 Lasix 20 mg tablet 2023 024 [email or web address] [facility] #[id number], [address], [place], [place], [id number], 08/11/2023 13:29:17 Patient TargetsNo targets recorded. Patient Instructions Encounter Date Encounter Id Patient Instructions Last Modified By Organization Details Last Modified Time 11/10/2023 [id number] A healthy lifestyle: care instructions [email or web address] Not available 11/10/2023 17:50:07 11/17/2023 [id number] Medicare Wellnes s Preventive Checklist [email or web address] Not available 11/17/2023 17:10:01 eating healthy foods: care instructions [email or web address] Not available 11/17/2023 17:10:01 02/09/2024 [id number] A healthy lifestyle: care instructions [email or web address] Not available 02/09/2024 15:31:33 06/07/2024 [id number] A healthy lifestyle: care instructions [email or web address] Not available 06/07/2024 13:15:23 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 Refer ral for Type 2 diabetes mellitus Referring Physician: Jennifer Perez, Internal Medicine, Encounter Date: 11/17/2023 Results Created Date Observation Date Name Description Value Unit Range Abnormal Flag Note LastModifiedBy Organization Detail LastModifiedTime 07/28/19 24 07/29/2023 LIPID PANEL cholesterol, total 93 mg/dL 100-19 9 below low normal Not Available [facility] ([facility]) [address] [place], [address], 07/29/2023 11:20:06 07/28/19 24 07/29/2023 LIPID PANEL triglyceride s 175 mg/dL 0-149 above high normal Not Available [facility] ([facility]) [address] [place], [address], 07/29/2023 11:20:06 07/28/19 24 07/29/2023 LIPID PANEL HDL cholesterol 35 mg/dL >39 below low normal Not Available [facility] ([facility]) [address] [place], [address], 07/29/2023 11:20:06 07/28/19 24 07/29/2023 LIPID PANEL VLDL cholesterol arjun 29 mg/dL 5-40 Not Available [facility]) [address] [place], [address], 07/29/2023 11:20:06 07/28/19 24 07/29/2023 LIPID PANEL LDL chol calc ([facility]) 29 mg/dL 0-99 Not Available [facility]) [address] [place], [address], 07/29/2023 11:20:06 07/28/19 24 07/29/2023 COMP. METAB OLIC PANEL (14) glucose 98 mg/dL 70-99 Not Available [facility] ([facility]) [address] [place], [address], 07/29/2023 11:20:07 07/28/19 24 07/29/2023 COMP. METAB OLIC PANEL (14) BUN 14 mg/dL 8-27 Not Available [facility] ([facility]) [address] [place], [address], 07/29/2023 11:20:07 07/28/19 24 07/29/2023 COMP. METAB OLIC PANEL (14) creatinine 0.74 mg/dL 0.76-1 .27 below low normal Not Available [facility] ([facility]) [address] [place], [address], 07/29/2023 11:20:07 07/28/19 24 07/29/2023 COMP. METAB OLIC PANEL (14) eGFR 99 mL/mi n/1.7 3 >59 Not Available [facility] ([facility]) [address] [place], [address], 07/29/2023 11:20:07 07/28/19 24 07/29/2023 COMP. METAB OLIC PANEL (14) BUN/creatini ne ratio 19 10-24 Not Available [facility] ([facility]) [address] [facility] [place], [address], 07/29/2023 11:20:07 07/28/19 24 07/29/2023 COMP. METAB OLIC PANEL (14) sodium 145 mmol/ L 134-14 4 above high normal Not Available [facility] ([facility]) [address] [facility] [place], [address], 07/29/2023 11:20:07 07/28/19 24 07/29/2023 COMP. METAB OLIC PANEL (14) potassium 4.2 mmol/ L 3.5-5. 2 Not Available [facility] ([facility]) [address] [facility], [place], [address], 07/29/2023 11:20:07 07/28/19 24 07/29/2023 COMP. METAB OLIC PANEL (14) chloride 108 mmol/ L 96-106 above high normal Not Available [facility] ([facility]) [address] [facility], [place], [address], 07/29/2023 11:20:07 07/28/19 24 07/29/2023 COMP. METAB OLIC PANEL (14) carbon dioxide, total 25 mmol/ L 20-29 Not Available [facility] ([facility]) [address] [facility], [place], [address], 07/29/2023 11:20:07 07/28/19 24 07/29/2023 COMP. METAB OLIC PANEL (14) calcium 9.4 mg/dL 8.6-10 .2 Not Available [facility] ([facility]) [address] [facility], [place], [address], 07/29/2023 11:20:07 07/28/19 24 07/29/2023 COMP. METAB OLIC PANEL (14) protein, total 7.0 g/dL 6.0-8. 5 Not Available [facility] ([facility]) [address] [facility], [place], [address], 07/29/2023 11:20:07 07/28/19 24 07/29/2023 COMP. METAB OLIC PANEL (14) albumin 4.1 g/dL 3.9-4. 9 Not Available [facility] ([facility]) [address] [facility], [place], [address], 07/29/2023 11:20:07 07/28/19 24 07/29/2023 COMP. METAB OLIC PANEL (14) globulin, total 2.9 g/dL 1.5-4. 5 Not Available [facility] ([facility]) [address] [facility], [place], [address], 07/29/2023 11:20:07 07/28/19 24 07/29/2023 COMP. METAB OLIC PANEL (14) A/G ratio 1.4 1.2-2. 2 Not Available [facility] ([facility]) [address] [place], [address], 07/29/2023 11:20:07 07/28/19 24 07/29/2023 COMP. METAB OLIC PANEL (14) bilirubin, total 0.3 mg/dL 0.0-1. 2 Not Available [facility] ([facility]) [address] [place], [address], 07/29/2023 11:20:07 07/28/19 24 07/29/2023 COMP. METAB OLIC PANEL (14) alkaline phosphatase 108 IU/L 44-121 Not Available [facility] ([facility]) [address] [place], [address], 07/29/2023 11:20:07 07/28/19 24 07/29/2023 COMP. METAB OLIC PANEL (14) AST (SGOT) 24 IU/L 0-40 Not Available [facility] ([facility]) [address] [place], [address], 07/29/2023 11:20:07 07/28/19 24 07/29/2023 COMP. METAB OLIC PANEL (14) ALT (SGPT) 18 IU/L 0-44 Not Available [facility] ([facility]) [address] [place], [address], 07/29/2023 11:20:07 07/28/19 24 07/29/2023 HEMOG LOBIN A1C hemoglobin A1C 6.3 % 4.8-5. 6 above high normal Predi abete s: 5.7 - 6.4 Diabe nghia: >6.4 Glyce roxana contr ol for adult s with diabe nghia: <7.0 Not Available [facility] ([facility]) [address] [place], [address], 07/29/2023 11:20:08 07/28/19 24 07/29/2023 CBC WITH DIFFE RENTI AL/PL ATELE T WBC 4.6 x10e3 /uL 3.4-10 .8 Not Available [facility] ([facility]) [address] [facility], [place], [address], 07/29/2023 11:20:08 07/28/19 24 07/29/2023 CBC WITH DIFFE RENTI AL/PL ATELE T RBC 4.53 x10e6 /uL 4.14-5 .80 Not Available [facility] ([facility]) [address] [facility], [place], [address], 07/29/2023 11:20:08 07/28/19 24 07/29/2023 CBC WITH DIFFE RENTI AL/PL ATELE T hemoglobin 13.7 g/dL 13.0-1 7.7 Not Available [facility] ([facility]) [address] [facility], [place], [address], 07/29/2023 11:20:08 07/28/19 24 07/29/2023 CBC WITH DIFFE RENTI AL/PL ATELE T hematocrit 42.8 % 37.5-5 1.0 Not Available [facility] ([facility]) [address] [facility], [place], [address], 07/29/2023 11:20:08 07/28/19 24 07/29/2023 CBC WITH DIFFE RENTI AL/PL ATELE T MCV 95 fL 79-97 Not Available [facility] ([facility]) [address] [place], [address], 07/29/2023 11:20:08 07/28/19 24 07/29/2023 CBC WITH DIFFE RENTI AL/PL ATELE T MCH 30.2 pg 26.6-3 3.0 Not Available [facility] ([facility]) [address] [place], [address], 07/29/2023 11:20:08 07/28/19 24 07/29/2023 CBC WITH DIFFE RENTI AL/PL ATELE T MCHC 32.0 g/dL 31.5-3 5.7 Not Available [facility] ([facility]) [address] [facility], [place], [address], 07/29/2023 11:20:08 07/28/19 24 07/29/2023 CBC WITH DIFFE RENTI AL/PL ATELE T RDW 14.5 % 11.6-1 5.4 Not Available [facility] ([facility]) [address] [facility], [place], [address], 07/29/2023 11:20:08 07/28/19 24 07/29/2023 CBC WITH DIFFE RENTI AL/PL ATELE T platelets 187 x10e3 /uL 150-45 0 Not Available [facility] ([facility]) [address] [facility], [place], [address], 07/29/2023 11:20:08 07/28/19 24 07/29/2023 CBC WITH DIFFE RENTI AL/PL ATELE T neutrophils 62 % notest ab. Not Available [facility] ([facility]) [address] [facility], [place], [address], 07/29/2023 11:20:08 07/28/19 24 07/29/2023 CBC WITH DIFFE RENTI AL/PL ATELE T lymphs 24 % notest ab. Not Available [facility] ([facility]) [address] [facility], [place], [address], 07/29/2023 11:20:08 07/28/19 24 07/29/2023 CBC WITH DIFFE RENTI AL/PL ATELE T monocytes 11 % notest ab. Not Available [facility] ([facility]) [address] [facility], [place], [address], 07/29/2023 11:20:08 07/28/19 24 07/29/2023 CBC WITH DIFFE RENTI AL/PL ATELE T eos 2 % notest ab. Not Available [facility] ([facility]) [address] [place], [address], 07/29/2023 11:20:08 07/28/19 24 07/29/2023 CBC WITH DIFFE RENTI AL/PL ATELE T basos 1 % notest ab. Not Available [facility] ([facility]) [address] [place], [address], 07/29/2023 11:20:08 07/28/19 24 07/29/2023 CBC WITH DIFFE RENTI AL/PL ATELE T neutrophils (absolute) 2.9 x10e3 /uL 1.4-7. 0 Not Available [facility] ([facility]) [address] [place], [address], 07/29/2023 11:20:08 07/28/19 24 07/29/2023 CBC WITH DIFFE RENTI AL/PL ATELE T lymphs (absolute) 1.1 x10e3 /uL 0.7-3. 1 Not Available [facility] ([facility]) [address] [place], [address], 07/29/2023 11:20:08 07/28/19 24 07/29/2023 CBC WITH DIFFE RENTI AL/PL ATELE T monocytes(ab solute) 0.5 x10e3 /uL 0.1-0. 9 Not Available [facility] ([facility]) [address] [place], [address], 07/29/2023 11:20:08 07/28/19 24 07/29/2023 CBC WITH DIFFE RENTI AL/PL ATELE T eos (absolute) 0.1 x10e3 /uL 0.0-0. 4 Not Available [facility] ([facility]) [address] [place], [address], 07/29/2023 11:20:08 07/28/19 24 07/29/2023 CBC WITH DIFFE RENTI AL/PL ATELE T baso (absolute) 0.0 x10e3 /uL 0.0-0. 2 Not Available [facility] ([facility]) [address] [place], [address], 07/29/2023 11:20:08 07/28/19 24 07/29/2023 CBC WITH DIFFE RENTI AL/PL ATELE T immature granulocytes 0 % notest ab. Not Available [facility] ([facility]) [address] [place], [address], 07/29/2023 11:20:08 07/28/19 24 07/29/2023 CBC WITH DIFFE RENTI AL/PL ATELE T immature grans (abs) 0.0 x10e3 /uL 0.0-0. 1 Not Available [facility] ([facility]) [address] [place], [address], 07/29/2023 11:20:08 08/11/19 24 08/12/2023 B-TYP E NATRI URETI C PEPTI DE B-type natriuretic peptide 28.9 pg/mL 0.0-10 0.0 Sieme ns [facility] XP metho dolog y Not Available [facility] ([facility]) [address] [place], [address], 08/12/2023 10:12:42 08/11/19 24 08/12/2023 COMP. METAB OLIC PANEL (14) glucose 128 mg/dL 70-99 above high normal Not Available [facility] ([facility]) [address] [place], [address], 08/12/2023 10:12:42 08/11/19 24 08/12/2023 COMP. METAB OLIC PANEL (14) BUN 14 mg/dL 8-27 Not Available [facility] ([facility]) [address] [facility], [place], [address], 08/12/2023 10:12:42 08/11/19 24 08/12/2023 COMP. METAB OLIC PANEL (14) creatinine 0.69 mg/dL 0.76-1 .27 below low normal Not Available [facility] ([facility]) [address] [facility] [place], [address], 08/12/2023 10:12:42 08/11/19 24 08/12/2023 COMP. METAB OLIC PANEL (14) eGFR 101 mL/mi n/1.7 3 >59 Not Available [facility] ([facility]) [address] [facility] [place], [address], 08/12/2023 10:12:42 08/11/19 24 08/12/2023 COMP. METAB OLIC PANEL (14) BUN/creatini ne ratio 20 10-24 Not Available [facility] ([facility]) [address] [facility], [place], [address], 08/12/2023 10:12:42 08/11/19 24 08/12/2023 COMP. METAB OLIC PANEL (14) sodium 145 mmol/ L 134-14 4 above high normal Not Available [facility] ([facility]) [address] [facility] [place], [address], 08/12/2023 10:12:42 08/11/19 24 08/12/2023 COMP. METAB OLIC PANEL (14) potassium 4.4 mmol/ L 3.5-5. 2 Not Available [facility] ([facility] [facility]) [address] [facility] [place], [address], 08/12/2023 10:12:42 08/11/19 24 08/12/2023 COMP. METAB OLIC PANEL (14) chloride 106 mmol/ L 96-106 Not Available [facility] ([facility] [facility]) [address] [facility] [place], [address], 08/12/2023 10:12:42 08/11/19 24 08/12/2023 COMP. METAB OLIC PANEL (14) carbon dioxide, total 26 mmol/ L 20-29 Not Available [facility] ([facility]) [address] [facility], [place], [address], 08/12/2023 10:12:42 08/11/19 24 08/12/2023 COMP. METAB OLIC PANEL (14) calcium 9.4 mg/dL 8.6-10 .2 Not Available [facility] ([facility]) [address], [place], [address], 08/12/2023 10:12:42 08/11/19 24 08/12/2023 COMP. METAB OLIC PANEL (14) protein, total 6.7 g/dL 6.0-8. 5 Not Available [facility] ([facility]) [address] [facility] [place], [address], 08/12/2023 10:12:42 08/11/19 24 08/12/2023 COMP. METAB OLIC PANEL (14) albumin 4.2 g/dL 3.9-4. 9 Not Available [facility] ([facility]) [address] [facility] [place], [address], 08/12/2023 10:12:42 08/11/19 24 08/12/2023 COMP. METAB OLIC PANEL (14) globulin, total 2.5 g/dL 1.5-4. 5 Not Available [facility] ([facility]) [address] [facility] [place], [address], 08/12/2023 10:12:42 08/11/19 24 08/12/2023 COMP. METAB OLIC PANEL (14) A/G ratio 1.7 1.2-2. 2 Not Available [facility] ([facility]) [address] [facility] [place], [address], 08/12/2023 10:12:42 08/11/19 24 08/12/2023 COMP. METAB OLIC PANEL (14) bilirubin, total 0.4 mg/dL 0.0-1. 2 Not Available [facility] ([facility]) [address] [place], [address], 08/12/2023 10:12:42 08/11/19 24 08/12/2023 COMP. METAB OLIC PANEL (14) alkaline phosphatase 96 IU/L 44-121 Not Available [facility] ([facility]) [address] [facility], [place], [address], 08/12/2023 10:12:42 08/11/19 24 08/12/2023 COMP. METAB OLIC PANEL (14) AST (SGOT) 24 IU/L 0-40 Not Available [facility] ([facility]) [address] [facility], [place], [address], 08/12/2023 10:12:42 08/11/19 24 08/12/2023 COMP. METAB OLIC PANEL (14) ALT (SGPT) 19 IU/L 0-44 Not Available [facility] ([facility]) [address] [facility], [place], [address], 08/12/2023 10:12:42 08/11/19 24 08/11/2023 HbA1c (hemo globi n A1c), blood HbA1c 6.1% Not Available In-Office Order Internal Use Only DO Not Attach Compendium DO Not Attach Compendium, Do Not Delete/merge, [id number] 08/11/2023 12:17:13 11/10/19 24 11/11/2023 ALBUM IN/CR EATIN INE RATIO ,URIN E creatinine, urine 138.3 mg/dL notest ab. Not Available [facility] ([facility]) [address] [facility], [place], [address], 11/11/2023 13:11:30 11/10/19 24 11/11/2023 ALBUM IN/CR EATIN INE RATIO ,URIN E albumin, urine 32.2 ug/mL notest ab. Not Available [facility] ([facility]) [address] [facility], [place], [address], 11/11/2023 13:11:30 11/10/19 24 11/11/2023 ALBUM IN/CR EATIN INE RATIO ,URIN E alb/creat ratio 23 mg/g_ creat 0-29 Dang l: 0 - 29 Moder ately incre ased: 30 - 300 Sever deana incre ased: >300 Not Available [facility] ([facility]) [address] [facility], [place], [address], 11/11/2023 13:11:30 11/10/19 24 11/11/2023 LIPID PANEL cholesterol, total 101 mg/dL 100-19 9 Not Available [facility] ([facility]) [address] [place], [address], 11/11/2023 13:11:31 11/10/19 24 11/11/2023 LIPID PANEL triglyceride s 93 mg/dL 0-149 Not Available [facility] ([facility]) [address] [place], [address], 11/11/2023 13:11:31 11/10/19 24 11/11/2023 LIPID PANEL HDL cholesterol 37 mg/dL >39 below low normal Not Available [facility] ([facility]) [address] [place], [address], 11/11/2023 13:11:31 11/10/19 24 11/11/2023 LIPID PANEL VLDL cholesterol arjun 18 mg/dL 5-40 Not Available [facility] ([facility]) [address] [place], [address], 11/11/2023 13:11:31 11/10/19 24 11/11/2023 LIPID PANEL LDL chol calc ([facility]) 46 mg/dL 0-99 Not Available [facility] ([facility]) [address] [place], [address], 11/11/2023 13:11:31 11/10/19 24 11/11/2023 COMP. METAB OLIC PANEL (14) glucose 107 mg/dL 70-99 above high normal Not Available [facility] ([facility]) [address] [facility] [place], [address], 11/11/2023 13:11:31 11/10/19 24 11/11/2023 COMP. METAB OLIC PANEL (14) BUN 11 mg/dL 8-27 Not Available [facility] ([facility]) [address] [facility] [place], [address], 11/11/2023 13:11:31 11/10/19 24 11/11/2023 COMP. METAB OLIC PANEL (14) creatinine 0.79 mg/dL 0.76-1 .27 Not Available [facility] ([facility]) [address] [facility] [place], [address], 11/11/2023 13:11:31 11/10/19 24 11/11/2023 COMP. METAB OLIC PANEL (14) eGFR 97 mL/mi n/1.7 3 >59 Not Available [facility] ([facility]) [address] [facility], [place], [address], 11/11/2023 13:11:31 11/10/19 24 11/11/2023 COMP. METAB OLIC PANEL (14) BUN/creatini ne ratio 14 10-24 Not Available [facility] ([facility]) [address] [facility] [place], [address], 11/11/2023 13:11:31 11/10/19 24 11/11/2023 COMP. METAB OLIC PANEL (14) sodium 147 mmol/ L 134-14 4 above high normal Not Available [facility] ([facility]) [address] [facility] [place], [address], 11/11/2023 13:11:31 11/10/19 24 11/11/2023 COMP. METAB OLIC PANEL (14) potassium 3.8 mmol/ L 3.5-5. 2 Not Available [facility] ([facility]) [address] [facility] [place], [address], 11/11/2023 13:11:31 11/10/19 24 11/11/2023 COMP. METAB OLIC PANEL (14) chloride 106 mmol/ L 96-106 Not Available [facility] ([facility]) [address] [facility] [place], [address], 11/11/2023 13:11:31 11/10/19 24 11/11/2023 COMP. METAB OLIC PANEL (14) carbon dioxide, total 25 mmol/ L 20-29 Not Available [facility] ([facility]) [address] [facility] [place], [address], 11/11/2023 13:11:31 11/10/19 24 11/11/2023 COMP. METAB OLIC PANEL (14) calcium 8.9 mg/dL 8.6-10 .2 Not Available [facility] ([facility]) [address] [facility] [place], [address], 11/11/2023 13:11:31 11/10/19 24 11/11/2023 COMP. METAB OLIC PANEL (14) protein, total 6.3 g/dL 6.0-8. 5 Not Available [facility] ([facility]) [address] [facility] [place], [address], 11/11/2023 13:11:31 11/10/19 24 11/11/2023 COMP. METAB OLIC PANEL (14) albumin 4.0 g/dL 3.9-4. 9 Not Available [facility] ([facility]) [address] [facility] [place], [address], 11/11/2023 13:11:31 11/10/19 24 11/11/2023 COMP. METAB OLIC PANEL (14) globulin, total 2.3 g/dL 1.5-4. 5 Not Available [facility] ([facility]) [address] [facility] [place], [address], 11/11/2023 13:11:31 11/10/19 24 11/11/2023 COMP. METAB OLIC PANEL (14) bilirubin, total 0.5 mg/dL 0.0-1. 2 Not Available [facility] ([facility]) [address] [facility] [place], [address], 11/11/2023 13:11:31 11/10/19 24 11/11/2023 COMP. METAB OLIC PANEL (14) alkaline phosphatase 93 IU/L 44-121 Not Available [facility] ([facility]) [address] [facility] [place], [address], 11/11/2023 13:11:31 11/10/19 24 11/11/2023 COMP. METAB OLIC PANEL (14) AST (SGOT) 19 IU/L 0-40 Not Available [facility] ([facility]) [address] [facility] [place], [address], 11/11/2023 13:11:31 11/10/19 24 11/11/2023 COMP. METAB OLIC PANEL (14) ALT (SGPT) 16 IU/L 0-44 Not Available [facility] ([facility]) [address] [facility] [place], [address], 11/11/2023 13:11:31 11/10/19 24 11/11/2023 MICRO SCOPI C EXAMI NATIO N WBC 0-5 /hpf 0-5 Not Available [facility] ([facility]) [address] [facility] [place], [address], 11/11/2023 13:11:32 11/10/19 24 11/11/2023 MICRO SCOPI C EXAMI NATIO N RBC 0-2 /hpf 0-2 Not Available [facility] ([facility]) [address] [facility], [place], [address], 11/11/2023 13:11:32 11/10/19 24 11/11/2023 MICRO SCOPI C EXAMI NATIO N epithelial cells (non renal) 0-10 /hpf 0-10 Not Available [facility] ([facility]) [address] [facility], [place], [address], 11/11/2023 13:11:32 11/10/19 24 11/11/2023 MICRO SCOPI C EXAMI NATIO N casts NONE SEEN /lpf nonese en Not Available [facility] ([facility]) [address] [facility], [place], [address], 11/11/2023 13:11:32 11/10/19 24 11/11/2023 MICRO SCOPI C EXAMI NATIO N crystals PRESEN T n/a abnormal Not Available [facility] ([facility]) [address] [facility], [place], [address], 11/11/2023 13:11:32 11/10/19 24 11/11/2023 MICRO SCOPI C EXAMI NATIO N crystal type CALCIU M OXALAT E Not Available [facility] ([facility]) [address] [facility], [place], [address], 11/11/2023 13:11:32 11/10/19 24 11/11/2023 MICRO SCOPI C EXAMI NATIO N bacteria NONE SEEN nonese en/few Not Available [facility] ([facility]) [address] [facility], [place], [address], 11/11/2023 13:11:32 11/10/19 24 11/11/2023 HEMOG LOBIN A1C hemoglobin A1C 6.1 % 4.8-5. 6 above high normal Predi abete s: 5.7 - 6.4 Diabe nghia: >6.4 Glyce roxana contr ol for adult s with diabe nghia: <7.0 Not Available [facility] ([facility]) [address] [facility], [place], [address], 11/11/2023 13:11:32 11/10/19 24 11/11/2023 TSH TSH 0.669 uIU/m L 0.450- 4.500 Not Available [facility] ([facility]) [address] [facility], [place], [address], 11/11/2023 13:11:33 11/10/19 24 11/11/2023 CBC WITH DIFFE RENTI AL/PL ATELE T WBC 4.9 x10e3 /uL 3.4-10 .8 Not Available [facility] ([facility]) [address] [facility], [place], [address], 11/11/2023 13:11:34 11/10/19 24 11/11/2023 CBC WITH DIFFE RENTI AL/PL ATELE T RBC 4.24 x10e6 /uL 4.14-5 .80 Not Available [facility] ([facility]) [address] [facility], [place], [address], 11/11/2023 13:11:34 11/10/19 24 11/11/2023 CBC WITH DIFFE RENTI AL/PL ATELE T hemoglobin 13.9 g/dL 13.0-1 7.7 Not Available [facility] ([facility]) [address] [place], [address], 11/11/2023 13:11:34 11/10/19 24 11/11/2023 CBC WITH DIFFE RENTI AL/PL ATELE T hematocrit 42.9 % 37.5-5 1.0 Not Available [facility] ([facility]) [address] [place], [address], 11/11/2023 13:11:34 11/10/19 24 11/11/2023 CBC WITH DIFFE RENTI AL/PL ATELE T MCV 101 fL 79-97 above high normal Not Available [facility] ([facility]) [address] [place], [address], 11/11/2023 13:11:34 11/10/19 24 11/11/2023 CBC WITH DIFFE RENTI AL/PL ATELE T MCH 32.8 pg 26.6-3 3.0 Not Available [facility] ([facility]) [address] [facility], [place], [address], 11/11/2023 13:11:34 11/10/19 24 11/11/2023 CBC WITH DIFFE RENTI AL/PL ATELE T MCHC 32.4 g/dL 31.5-3 5.7 Not Available [facility] ([facility]) [address] [facility], [place], [address], 11/11/2023 13:11:34 11/10/19 24 11/11/2023 CBC WITH DIFFE RENTI AL/PL ATELE T RDW 13.8 % 11.6-1 5.4 Not Available [facility] ([facility]) [address] [facility], [place], [address], 11/11/2023 13:11:34 11/10/19 24 11/11/2023 CBC WITH DIFFE RENTI AL/PL ATELE T platelets 218 x10e3 /uL 150-45 0 Not Available [facility] ([facility]) [address] [facility], [place], [address], 11/11/2023 13:11:34 11/10/19 24 11/11/2023 CBC WITH DIFFE RENTI AL/PL ATELE T neutrophils 68 % notest ab. Not Available [facility] ([facility]) [address] [facility], [place], [address], 11/11/2023 13:11:34 11/10/19 24 11/11/2023 CBC WITH DIFFE RENTI AL/PL ATELE T lymphs 21 % notest ab. Not Available [facility] ([facility]) [address] [place], [address], 11/11/2023 13:11:34 11/10/19 24 11/11/2023 CBC WITH DIFFE RENTI AL/PL ATELE T monocytes 9 % notest ab. Not Available [facility] ([facility]) [address] [facility], [place], [address], 11/11/2023 13:11:34 11/10/19 24 11/11/2023 CBC WITH DIFFE RENTI AL/PL ATELE T eos 1 % notest ab. Not Available [facility] ([facility]) [address] [facility], [place], [address], 11/11/2023 13:11:34 11/10/19 24 11/11/2023 CBC WITH DIFFE RENTI AL/PL ATELE T basos 1 % notest ab. Not Available [facility] ([facility]) [address] [facility], [place], [address], 11/11/2023 13:11:34 11/10/19 24 11/11/2023 CBC WITH DIFFE RENTI AL/PL ATELE T neutrophils (absolute) 3.3 x10e3 /uL 1.4-7. 0 Not Available [facility] ([facility]) [address] [facility], [place], [address], 11/11/2023 13:11:34 11/10/19 24 11/11/2023 CBC WITH DIFFE RENTI AL/PL ATELE T lymphs (absolute) 1.0 x10e3 /uL 0.7-3. 1 Not Available [facility] ([facility]) [address] [facility], [place], [address], 11/11/2023 13:11:34 11/10/19 24 11/11/2023 CBC WITH DIFFE RENTI AL/PL ATELE T monocytes(ab solute) 0.4 x10e3 /uL 0.1-0. 9 Not Available [facility] ([facility]) [address] [facility], [place], [address], 11/11/2023 13:11:34 11/10/19 24 11/11/2023 CBC WITH DIFFE RENTI AL/PL ATELE T eos (absolute) 0.1 x10e3 /uL 0.0-0. 4 Not Available [facility] ([facility]) [address] [facility], [place], [address], 11/11/2023 13:11:34 11/10/19 24 11/11/2023 CBC WITH DIFFE RENTI AL/PL ATELE T baso (absolute) 0.0 x10e3 /uL 0.0-0. 2 Not Available [facility] ([facility]) [address] [place], [address], 11/11/2023 13:11:34 11/10/19 24 11/11/2023 CBC WITH DIFFE RENTI AL/PL ATELE T immature granulocytes 0 % notest ab. Not Available [facility] ([facility]) [address] [place], [address], 11/11/2023 13:11:34 11/10/19 24 11/11/2023 CBC WITH DIFFE RENTI AL/PL ATELE T immature grans (abs) 0.0 x10e3 /uL 0.0-0. 1 Not Available [facility] ([facility]) [address] [place], [address], 11/11/2023 13:11:34 11/10/19 24 11/11/2023 TRIIO DOTHY JUAN E (T3), FREE triiodothyro nine (T3), free 2.8 pg/mL 2.0-4. 4 Not Available [facility] ([facility]) [address] [place], [address], 11/11/2023 13:11:34 11/10/19 24 11/11/2023 T4,FR EE(DI RECT) T4,free(dire ct) 1.08 NG/dL 0.82-1 .77 Not Available [facility] ([facility]) [address] [place], [address], 11/11/2023 13:11:35 06/07/19 25 06/08/2024 TSH+F REE T4 TSH 0.501 uIU/m L 0.450- 4.500 Not Available [facility] ([facility]) [address] [place], [address], 06/08/2024 13:12:04 06/07/19 25 06/08/2024 TSH+F REE T4 T4,free(dire ct) 1.07 NG/dL 0.82-1 .77 Not Available [facility] ([facility]) [address] [place], [address], 06/08/2024 13:12:04 06/07/19 25 06/08/2024 LIPID PANEL cholesterol, total 119 mg/dL 100-19 9 Not Available [facility] ([facility]) [address] [place], [address], 06/08/2024 13:12:05 06/07/19 25 06/08/2024 LIPID PANEL triglyceride s 134 mg/dL 0-149 Not Available [facility] ([facility]) [address] [place], [address], 06/08/2024 13:12:05 06/07/19 25 06/08/2024 LIPID PANEL HDL cholesterol 37 mg/dL >39 below low normal Not Available [facility] ([facility]) [address] [place], [address], 06/08/2024 13:12:05 06/07/19 25 06/08/2024 LIPID PANEL VLDL cholesterol arjun 24 mg/dL 5-40 Not Available [facility] ([facility]) [address] [place], [address], 06/08/2024 13:12:05 06/07/19 25 06/08/2024 LIPID PANEL LDL chol calc ([facility]) 58 mg/dL 0-99 Not Available [facility] ([facility]) [address] [place], [address], 06/08/2024 13:12:05 06/07/19 25 06/08/2024 COMP. METAB OLIC PANEL (14) glucose 88 mg/dL 70-99 Not Available [facility] ([facility]) [address] [place], [address], 06/08/2024 13:12:07 06/07/19 25 06/08/2024 COMP. METAB OLIC PANEL (14) BUN 19 mg/dL 8-27 Not Available [facility] ([facility]) [address] [place], [address], 06/08/2024 13:12:07 06/07/19 25 06/08/2024 COMP. METAB OLIC PANEL (14) creatinine 0.73 mg/dL 0.76-1 .27 below low normal Not Available [facility] ([facility]) [address] [place], [address], 06/08/2024 13:12:07 06/07/19 25 06/08/2024 COMP. METAB OLIC PANEL (14) eGFR 99 mL/mi n/1.7 3 >59 Not Available [facility] ([facility]) [address] [place], [address], 06/08/2024 13:12:07 06/07/19 25 06/08/2024 COMP. METAB OLIC PANEL (14) BUN/creatini ne ratio 26 10-24 above high normal Not Available [facility] ([facility]) [address] [place], [address], 06/08/2024 13:12:07 06/07/19 25 06/08/2024 COMP. METAB OLIC PANEL (14) sodium 147 mmol/ L 134-14 4 above high normal Not Available [facility] ([facility]) [address] [place], [address], 06/08/2024 13:12:07 06/07/19 25 06/08/2024 COMP. METAB OLIC PANEL (14) potassium 4.7 mmol/ L 3.5-5. 2 Not Available [facility] ([facility]) [address] [place], [address], 06/08/2024 13:12:07 06/07/19 25 06/08/2024 COMP. METAB OLIC PANEL (14) chloride 105 mmol/ L 96-106 Not Available [facility] ([facility]) [address] [place], [address], 06/08/2024 13:12:07 06/07/19 25 06/08/2024 COMP. METAB OLIC PANEL (14) carbon dioxide, total 23 mmol/ L 20-29 Not Available [facility] ([facility]) [address] [facility] [place], [address], 06/08/2024 13:12:07 06/07/19 25 06/08/2024 COMP. METAB OLIC PANEL (14) calcium 9.1 mg/dL 8.6-10 .2 Not Available [facility] ([facility]) [address] [facility] [place], [address], 06/08/2024 13:12:07 06/07/19 25 06/08/2024 COMP. METAB OLIC PANEL (14) protein, total 6.8 g/dL 6.0-8. 5 Not Available [facility] ([facility]) [address] [facility] [place], [address], 06/08/2024 13:12:07 06/07/19 25 06/08/2024 COMP. METAB OLIC PANEL (14) albumin 4.1 g/dL 3.9-4. 9 Not Available [facility] ([facility]) [address] [facility] [place], [address], 06/08/2024 13:12:07 06/07/19 25 06/08/2024 COMP. METAB OLIC PANEL (14) globulin, total 2.7 g/dL 1.5-4. 5 Not Available [facility] ([facility]) [address] [facility], [place], [address], 06/08/2024 13:12:07 06/07/19 25 06/08/2024 COMP. METAB OLIC PANEL (14) bilirubin, total 0.4 mg/dL 0.0-1. 2 Not Available [facility] ([facility]) [address] [facility], [place], [address], 06/08/2024 13:12:07 06/07/19 25 06/08/2024 COMP. METAB OLIC PANEL (14) alkaline phosphatase 107 IU/L 44-121 Not Available [facility] ([facility]) [address] [facility], [place], [address], 06/08/2024 13:12:07 06/07/19 25 06/08/2024 COMP. METAB OLIC PANEL (14) AST (SGOT) 20 IU/L 0-40 Not Available [facility] ([facility]) [address] [place], [address], 06/08/2024 13:12:07 06/07/19 25 06/08/2024 COMP. METAB OLIC PANEL (14) ALT (SGPT) 13 IU/L 0-44 Not Available [facility] ([facility]) [address] [facility], [place], [address], 06/08/2024 13:12:07 06/07/19 25 06/08/2024 VITAM IN B12 AND FOLAT E vitamin B12 639 pg/mL 232-12 45 Not Available [facility] ([facility]) [address] [facility], [place], [address], 06/08/2024 13:12:09 06/07/19 25 06/08/2024 VITAM IN B12 AND FOLAT E folate (folic acid), serum >20.0 NG/mL >3.0 A serum folat e henny ntrat ion of less than 3.1 ng/mL is consi dered to repre sent clini arjun defic iency . Not Available [facility] ([facility]) [address] [facility], [place], [address], 06/08/2024 13:12:09 06/07/1906/08/2024 HEMOG LOBIN A1C hemoglobin A1C 5.9 % 4.8-5. 6 above high normal Predi abete s: 5.7 - 6.4 Diabe nghia: >6.4 Glyce roxana contr ol for adult s with diabe nghia: <7.0 Not Available [facility] ([facility]) [address] [place], [address], 06/08/2024 13:12:10 06/07/1906/08/2024 CBC WITH DIFFE RENTI AL/PL ATELE T WBC 5.3 x10e3 /uL 3.4-10 .8 Not Available [facility] ([facility]) [address] [place], [address], 06/08/2024 13:12:12 06/07/19 25 06/08/2024 CBC WITH DIFFE RENTI AL/PL ATELE T RBC 4.42 x10e6 /uL 4.14-5 .80 Not Available [facility] ([facility]) [address] [place], [address], 06/08/2024 13:12:12 06/07/19 25 06/08/2024 CBC WITH DIFFE RENTI AL/PL ATELE T hemoglobin 14.7 g/dL 13.0-1 7.7 Not Available [facility] ([facility]) [address] [place], [address], 06/08/2024 13:12:12 06/07/19 25 06/08/2024 CBC WITH DIFFE RENTI AL/PL ATELE T hematocrit 44.4 % 37.5-5 1.0 Not Available [facility] ([facility]) [address] [place], [address], 06/08/2024 13:12:12 06/07/19 25 06/08/2024 CBC WITH DIFFE RENTI AL/PL ATELE T MCV 101 fL 79-97 above high normal Not Available [facility] ([facility]) [address] [place], [address], 06/08/2024 13:12:12 06/07/19 25 06/08/2024 CBC WITH DIFFE RENTI AL/PL ATELE T MCH 33.3 pg 26.6-3 3.0 above high normal Not Available [facility] ([facility]) [address] [place], [address], 06/08/2024 13:12:12 06/07/19 25 06/08/2024 CBC WITH DIFFE RENTI AL/PL ATELE T MCHC 33.1 g/dL 31.5-3 5.7 Not Available [facility] ([facility]) [address] [place], [address], 06/08/2024 13:12:12 06/07/19 25 06/08/2024 CBC WITH DIFFE RENTI AL/PL ATELE T RDW 12.4 % 11.6-1 5.4 Not Available [facility] ([facility]) [address] [place], [address], 06/08/2024 13:12:12 06/07/19 25 06/08/2024 CBC WITH DIFFE RENTI AL/PL ATELE T platelets 255 x10e3 /uL 150-45 0 Not Available [facility] ([facility]) [address] [place], [address], 06/08/2024 13:12:12 06/07/19 25 06/08/2024 CBC WITH DIFFE RENTI AL/PL ATELE T neutrophils 64 % notest ab. Not Available [facility] ([facility]) [address] [facility], [place], [address], 06/08/2024 13:12:12 06/07/19 25 06/08/2024 CBC WITH DIFFE RENTI AL/PL ATELE T lymphs 22 % notest ab. Not Available [facility] ([facility]) [address] [facility], [place], [address], 06/08/2024 13:12:12 06/07/19 25 06/08/2024 CBC WITH DIFFE RENTI AL/PL ATELE T monocytes 12 % notest ab. Not Available [facility] ([facility]) [address] [facility], [place], [address], 06/08/2024 13:12:12 06/07/19 25 06/08/2024 CBC WITH DIFFE RENTI AL/PL ATELE T eos 1 % notest ab. Not Available [facility] ([facility]) [address] [facility], [place], [address], 06/08/2024 13:12:12 06/07/19 25 06/08/2024 CBC WITH DIFFE RENTI AL/PL ATELE T basos 1 % notest ab. Not Available [facility] ([facility]) [address] [facility], [place], [address], 06/08/2024 13:12:12 06/07/19 25 06/08/2024 CBC WITH DIFFE RENTI AL/PL ATELE T neutrophils (absolute) 3.4 x10e3 /uL 1.4-7. 0 Not Available [facility] ([facility]) [address] [facility], [place], [address], 06/08/2024 13:12:12 06/07/19 25 06/08/2024 CBC WITH DIFFE RENTI AL/PL ATELE T lymphs (absolute) 1.2 x10e3 /uL 0.7-3. 1 Not Available [facility] ([facility]) [address] [facility], [place], [address], 06/08/2024 13:12:12 06/07/19 25 06/08/2024 CBC WITH DIFFE RENTI AL/PL ATELE T monocytes(ab solute) 0.6 x10e3 /uL 0.1-0. 9 Not Available [facility] ([facility]) [address] [facility], [place], [address], 06/08/2024 13:12:12 06/07/19 25 06/08/2024 CBC WITH DIFFE RENTI AL/PL ATELE T eos (absolute) 0.1 x10e3 /uL 0.0-0. 4 Not Available [facility] ([facility]) [address] [facility], [place], [address], 06/08/2024 13:12:12 06/07/19 25 06/08/2024 CBC WITH DIFFE RENTI AL/PL ATELE T baso (absolute) 0.0 x10e3 /uL 0.0-0. 2 Not Available [facility] ([facility]) [address] [facility], [place], [address], 06/08/2024 13:12:12 06/07/19 25 06/08/2024 CBC WITH DIFFE RENTI AL/PL ATELE T immature granulocytes 0 % notest ab. Not Available [facility] ([facility]) [address] [place], [address], 06/08/2024 13:12:12 06/07/19 25 06/08/2024 CBC WITH DIFFE RENTI AL/PL ATELE T immature grans (abs) 0.0 x10e3 /uL 0.0-0. 1 Not Available [facility] ([facility]) [address] [facility], [place], [address], 06/08/2024 13:12:12 06/07/19 25 06/08/2024 PROST ATE-S PECIF IC AG prostate specific Ag 2.0 NG/mL 0.0-4. 0 Efraín ECLIA metho dolog y. Accor renate to the Ameri can [employer] g[employer] iatio n, Serum PSA shoul d decre ase and remai n at undet ectab le level s after radic al prost atect mian. The AUA defin es bioch emica l recur rence as an initi al PSA value 0.2 ng/mL or great er follo wed by a subse quent confi rmato ry PSA value 0.2 ng/mL or great er. Value s obtai kasie with diffe rent assay metho ds or kits canno t be used inter spangler eably . Resul ts canno t be inter prete d as absol guille evide nce of the prese nce or absen ce of isreal paris se. Not Available [facility] ([facility]) [address] [facility], [place], [address], 06/08/2024 13:12:13 06/07/19 25 06/08/2024 TRIIO DOTHY JUAN E (T3), FREE triiodothyro nine (T3), free 2.9 pg/mL 2.0-4. 4 Not Available [facility] ([facility]) [address] [facility], [place], [address], 06/08/2024 13:12:15 08/23/19 24 08/19/2023 US, echoc ardio gram No observ ation record ed[email or web address] [address] [place], [address], 08/24/2023 14:03:42 11/26/19 24 11/26/2023 US, carlos reynolds, kami extre mity No observ ation record ed. [facility] [address] [place], [address], 12/03/2023 10:20:34 05/22/19 25 05/22/2024 XR, chest , 2 view No observ ation record ed. [facility] [address], [place], [address], 05/24/2024 16:55:21 05/30/19 25 05/11/2024 colon oscop y ramin miller (PROC ) No observ ation record ed. [facility] [address], [place], [address], 06/21/2024 11:22:59 07/14/19 25 06/19/2024 alcira r monit or No observ ation record ed. [facility] [address] [facility] [address], [place], [address], 07/14/2024 16:25:20 Result Notes None recorded. Problems Name Problem SNOMED Code Status Onset Date Resolution Date Notes Provider Name and Address Organization Details Recorded Time Type 2 diabetes mellitus 30169074 Active [address] [place] null, [place] - [facility] 4 16:56:58 Essential hypertension 32407132 Active [address] [place], [place] - [facility] 4 16:56:59 Obesity 735684174 Active 2023 Jennifer Perez MD Attn: Miguel barros,[address] [facility], [place], [address], [place] - [facility] 4 21:10:35 Hyperlipidemia 26265273 Active 2023 Jennifer Perez MD Attn: Miguel barros,[address] [facility], [place], [address], [place] [facility] 4 21:10:37 Anxiety 85276838 Active 2023 Jennifer Perez MD Attn: Miguel barros,[address] [facility], [place], [address], [place] - [facility] 4 21:10:49 Edema of lower extremity 861647791 Active [address] [place] null, [place] - [facility] 4 11:45:25 Lymphedema of lower extremity 623431550 Active 2023 Jennifer Perez MD Attn: Miguel barros,[address] [facility], [place], [address], [facility] - [facility] 4 22:34:54 Prediabetes 971594156 Active [address] [place] null, [place] - [facility] 5 13:09:47 Bradycardia 26316500 Active [address] [place], [place] - [facility] 5 13:09:47 Problem Notes None recorded. Procedures Surgical History Date Name Laterality Status Provider Name and Address Organization Details Recorded Time Eye Surgery completed Karen subramanian [place] - [facility] 07/07/2023 16:07:39 Imaging Results None recorded. Procedure Notes None [...] AND 1/2 TABLETS BY MOUTH EVERY DAY 2024 active Not [...] and Address Organization Details Last Updated DateTime 5 170.18 cm 42.7 kg/m2 176667. 56 g 50 /min 100 % 100 % 118 mm[Hg] 72 mm[Hg] Juliet Hazel MA [facility] 5 12:06:29 Date Recorded Body height Body mass index (BMI) Body weight Heart rate Oxygen saturation Oxygen saturation in Arterial blood by Pulse oximetry Systolic blood pressure Diastolic blood pressure Provider Name and Address Organization Details Last Updated DateTime 4 170.18 cm 44.9 kg/m2 172849. 29 g 68 /min 91 % 91 % 116 mm[Hg] 76 mm[Hg] Nataly Butler MA [facility] 4 11:24:18 Date Recorded Body height Body mass index (BMI) Body weight Heart rate Oxygen saturation Oxygen saturation in Arterial blood by Pulse oximetry Systolic blood pressure Diastolic blood pressure Provider Name and Address Organization Details Last Updated DateTime 4 170.18 cm 44.6 kg/m2 508784. 83 g 56 /min 95 % 95 % 122 mm[Hg] 68 mm[Hg] Edouard Balderrama MA [facility] 4 15:24:54 Date Recorded Body height Body mass index (BMI) Body weight Heart rate Oxygen saturation Oxygen saturation in Arterial blood by Pulse oximetry Systolic blood pressure Diastolic blood pressure Provider Name and Address Organization Details Last Updated DateTime 4 170.18 cm 44.8 kg/m2 807218. 78 g 56 /min 96 % 96 % 124 mm[Hg] 68 mm[Hg] Sera Vela MA [facility] 4 14:57:23 Date Recorded Body height Body mass index (BMI) Body weight Heart rate Oxygen saturation Oxygen saturation in Arterial blood by Pulse oximetry Systolic blood pressure Diastolic blood pressure Provider Name and Address Organization Details Last Updated DateTime 4 170.18 cm 45.1 kg/m2 856984. 24 g 56 /min 100 % 100 % 110 mm[Hg] 68 mm[Hg] Juliet Hazel MA [facility] 4 15:14:47 Social History Question Answer Notes LastModified by Organizat ion Details LastModified Time Tobacco Smoking Status Never Smoker Karen Gomez MA [facility], [place] - [facility] 07/07/2023 16:06:49 Do You Have An Advance Directive? No Information not available 11/17/2023 Are You Blind Or Do You Have Difficulty Seeing? No Glasses & Cataracts Information not available 11/17/2023 What Is Your Level Of Caffeine Consumption? Moderate Information not available 07/07/2023 In The 14 Days Before Symptom Onset, Have You Had Close Contact With A Laboratory-confir med COVID-19 While That Case Was Ill? No Information not available 02/09/2024 In The 14 Days Before Symptom Onset, Have You Had Close Contact With A Person Who Is Under Investigation For COVID-19 While That Person Was Ill? No Information not available 02/09/2024 Have You Been To An Area Known To Be High Risk For COVID-19? No Information not available 02/09/2024 Are You Deaf Or Do You Have Serious Difficulty Hearing? No Information not available 07/07/2023 What Type Of Diet Are You Following? REGULAR Information not available 07/07/2023 What Is The Highest Grade Or Level Of School You Have Completed Or The Highest Degree You Have Received? IR22035-0 Information not available 11/17/2023 Are There Any Guns Present In Your Home? No Information not available 11/17/2023 In The Past 7 Days, How Much Pain Have You [place]? None Information not available 11/17/2023 In General, Would You Say You Health Is: Good Information not available 11/17/2023 How Would You Describe The Condition Of Your Mouth And Teeth- Including False Teeth Or Dentures? Good Information not available 11/17/2023 Each Night, How Many Hours Of Sleep Do You Get? 8 Information no t available 11/17/2023 Has Anyone Ever Told You That You Snore? No CPAP Information not available 11/17/2023 In The Past 7 Days, How Often Have You [place] Sleepy In The Daytime? Rarely Information not available 11/17/2023 # Alcohol Drinks Per Week 0 Information not available 11/17/2023 What Was The Date Of Your Most Recent Tobacco Screening? 06/07/2024 Information not available 06/07/2024 What Is Your Relationship Status? Single Information not available 07/07/2023 Do You Use Your Seat Belt Or Car Seat Routinely? Yes Information not available 07/07/2023 Do You Have Smoke And Carbon Monoxide Detectors In Your Home? Yes Information not available 07/07/2023 Do You Use Sunscreen Routinely? Yes Information not available 07/07/2023 Has Tobacco Cessation Counseling Been Provided? No Information not available 11/17/2023 Sex: Male Functional Status Question Answer Note LastModified by Organizat ion Details LastModified Time Do you use any illicit or recreational drugs? No Information not available 07/07/2023 Do you or have you ever used any other forms of tobacco or nicotine? No Information not available 07/07/2023 What is your level of alcohol consumption? Occasional Information not available 07/07/2023 Are you currently employed? No Information not available 07/07/2023 Are you able to care for yourself? Yes Information n ot available 07/07/2023 What is your exercise level? None Information not available 07/07/2023 Mental Status Question Answer Note LastModified by Organization D etails LastModified Time Do you feel stressed (tense, restless, nervous, or anxious, or unable to sleep at night)? [id number] Information not available 11/17/2023 Family History Relationship Description Onset Age of this Age Resolved Age Notes LastModified by Organization Details LastModified Time Father Harmful pattern of use of alcohol 70 [email or web address] Not available 06/11 16:04:55 Father Chronic obstructive pulmonary disease Not available 2023 14:36:30 Father Diverticulit is Not available 2023 14:36:42 Brother Harmful pattern of use of alcohol 78 [email or web address] Not available 06/11 16:05:37 Brother Malignant tumor of pharynx 78 [email or web address] Not available 06/11 16:06:08 Brother Obstructive sleep apnea syndrome Not available 2023 14:36:00 Sister Harmful pattern of use of alcohol [email or web address] Not available 06/11 16:05:12 Sister Malignant tumor of pharynx Not available 2023 14:36:05 Mother Diabetes mellitus Not available 2023 14:35:36 Medical History Condition Response Coronary Artery Disease N Other N Atrial Fibrillation N High Blood Pressure Y Depression Y COPD N Blood Clots N Anxiety Disorder Y Muscle, Joint, or Bone Problems Y Acid Reflux (GERD) N Cancer N Stroke N Headaches N Kidney or Bladder Problems N Have you had a mammogram in the last yea r? N Skin Problems N Asthma Y Allergies N Have you had a PSA blood test in the las t year? N Hepatitis N High Cholesterol Y Liver Disease N Thyroid Problems N GI Problems Y Anemia N Heart Attack (SD) N Diabetes Y Seizures/Epilepsy N Have you had a colonoscopy in the last 1 0 years? Y Heart Failure N Osteoporosis N Immunizations Vaccine [...] [facility] 11/10/2023 15:19:16 Pneumococcal conjugate PCV20, polysaccharide [id number] conjugate, adjuvant, PF 3 completed WENDY [place], [place] - [facility] 11/10/2023 15:19:16 Influenza, split virus, quadrivalent, PF 7 completed [facility]END[facility] [place], [place] - [facility] 11/10/2023 15:19:16 Influenza, split virus, quadrivalent, PF 0 completed Edouard Balderrama MA null, [place] - [facility] 11/10/2023 15:19:16 Influenza, high-dose, trivalent, PF 4 completed Jennifer Perez MD Attn: Accounting[address] [place], [address], [facility] 02/09/2024 22:34:38 Past Encounters Encounter ID Performer Location Encounter Start Date Encounter Closed Date Diagnosis/Indication Diagnosis SNOMED-CT Code Diagnosis ICD10 Code Diagnosis Note [id number] [facility] [address] [place] [address] [id number] 07/07/2023 15:46:49 07/07/2023 16:55:22 Essential hypertension 98229423 I10 Type 2 ivy betes mellitus 12064484 E11.9 Obesity 806898606 E66.9 Hyperlipidemia 91639292 E78.5 Anxiety 90966161 F41.9 [id number] MD [facility] (Adult Med) [address] [place] [address] [id number] 0 08/11/2023 11:10:27 08/11/2023 12:03:41 Edema of lower extremity 635005120 R60.0 Type 2 ivy betes mellitus 10588058 E11.9 [id number] Jennifer Perez MD [facility] (Adult Med) [address] [place] [address] [id number] 11/10/2023 15:09:39 11/10/2023 16:09:53 Morbid obesity 140737451 E66.01 Essential hypertension 65867180 I10 Hyperlipidemia 42387619 E78.5 Type 2 ivy betes mellitus 70482139 E11.9 Fatigue 22846614 R53.83 [id number] MD [facility] (Adult Med) [address] [place] [address] [id number] 11/17/2023 14:50:42 11/17/2023 15:12:51 Adult health examination 149634513 Z00.00 Health Risk Assessment collected and reviewed Type 2 ivy betes mellitus 31085296 E11.9 [id number] Jennifer Perez MD [facility] (Adult Med) [address] [place] [address] [id number] 02/09/2024 15:01:07 02/09/2024 15:56:07 Body mass index 40+ - severely obese 272271160 Z68.42 Morbid obesity 960996287 E66.01 Onychomyco sis of toenails 813881845 B35.1 Polyp of colon 20192671 K63.5 Screening for malignant neoplasm of prostate 625559194 Z12.5 Administra tion of influenza vaccine 47656250 Z23 Essential hypertension 69039089 I10 Hyperlipidemia 50433049 E78.5 Obesity 850032135 E66.9 Type 2 ivy betes mellitus 98984010 E11.9 Lymphedema of lower extremity 466891574 I89.0 [id number] Jennifer Perez MD [facility] (Adult Med) [address] [place] [address] [id number] 0 06/07/2024 11:53:21 06/07/2024 13:13:28 Body mass index 40+ - severely obese 790163793 Z68.42 Morbid obesity 326768876 E66.01 Bradycardia 04620412 R00 .1 Prediabetes 974938952 R7 3.03 Hyperlipidemia 60685565 E78.5 Screening for malignant neoplasm of prostate 696708218 Z12.5 Essential hypertension 92535126 I10 Anxiety 49406928 F41.9 Health Concerns Section Related Observation LastModified by Organization Detai ls LastModified Time None Recorded Concern Status LastModified by Organization Details LastModified Time None Recorded Advance Directives Directive N: Payers Encounter Date Sequence Insurance Name Policy Number Policy Christian Covered Member ID Christian Member ID Guarantor Name 08/11/2023 1 [facility] (MEDICARE REPLACEMENT/A DVANTAGE - HMO) [id number] Julio Cesar Shane Box [id number] Julio Cesar Sterling 11/10/2023 1 [facility] (MEDICARE REPLACEMENT/A DVANTAGE - HMO) [id number] Julio Cesar Shane Box [id number] Julio Cesar Box 11/17/2023 1 [facility] (MEDICARE REPLACEMENT/A DVANTAGE - HMO) [id number] Julio Cesar Shane Box [id number] Julio Cesar Sterling 02/09/2024 1 [facility] (MEDICARE REPLACEMENT/A DVANTAGE - HMO) [id number] Julio Cesar Shane Box [id number] Julio Cesar Box 06/07/2024 1 [facility] (MEDICARE REPLACEMENT/A DVANTAGE - O) [id number] Julio Cesar Shane Box [id number] Julio Cesar Box Notes Date Note Type Note Provider Name and Address Organization Details Recorded Time 08/11/2023 text/html Acute appointmen t for some swelling in his legs has been going on for a few weeks without chest pain shortness of breath palpitations no clear PND or orthopnea no prolonged car trips or airplane trips Jennifer Perez MD Attn: [address] [place], [address], [facility] 08/16/2023 23:12:42 11/10/2023 text/html Hypertension no headache or dizziness. Diabetes no polyphasia no polydipsia. Obesity trouble losing weight hyperlipidemia try to follow low-fat diet anxiety doing well on sertraline. Swelling in the legs maybe a little bit worse some fatigue 0 PND or orthopnea Jennifer Perez MD Attn: [address]ing[address] [place], [address], [facility] 11/12/2023 21:01:01 11/17/2023 text/html MAW 2Reported bypatient.Diet [...] bathroom/shower Jennifer Perez MD Attn: [address]ing[address] [facility], [place], [address], [facility] 11/28/2023 16:48:40 02/09/2024 text/html lymphedema getti ng his legs wrapped doing better. Hypertension no headache or dizziness. Hyperlipidemia he says he is watching his saturated fat. Obesity struggles losing weight diabetes no polyphagia or polydipsia last A1c 6.13 months ago. He would like his toenail fungus treated and he is due for a colonoscopy Jennifer Perez MD Attn: Accounting[address] [facility], [place], [address], [facility] 02/09/2024 22:38:41 06/07/2024 text/html prediabetes coul d do better with diet needs A1c. Dyslipidemia taking rosuvastatin needs blood work done anxiety stable on sertraline. noticed to be bradycardic and asymptomatic in the office today Jennifer ePrez MD Attn: Accounting[address] [facility], [place], [address], [facility] 06/09/2024 16:29:45
--- OUTSIDE RECORDS SUMMARY | 2024-09-07 11:20 | XMS_ITS | Clinical Summary ---
Author Organization [facility] Address [address] [place] [address] Phone Care Team Providers Care Clutch Specialist Name Role Phone Cristiano Perez MD Primary Care Provider [phone] Social History Tobacco Use Types Packs/Day Years [...] (50+ years) Completed 10/05/2022 Influenza Immunization Completed 4, 02/01/2023, 03/02/2020, Additional history exists Hepatitis B Immunization Aged Out No longer eligible based on patient's age to complete this topic Meningococcal Immunization (ACWY) Aged Out No longer eligible based on patient's age to complete this topic Rotavirus Immunization Aged Out No lo nger eligible based on patient's age to complete this topic Insurance MEDICARE C [facility] Care Teams Clutch Specialist Relationship Specialty Start Date End Date Cristiano Perez MD [address] [place] [address] PCP - General Internal Medicine 12/22/23
[2024-09-07 11:51] LABS: Basophils Percent Auto 0.7 % (0.2-1.2); Eosinophils Absolute Auto 0.1 K/mm3 (0-0.3); Eosinophils Percent Auto 1.3 % (0-4.4); Hematocrit 43.3 % (42.0-52.0); Hemoglobin 14.2 g/dL (14.0-18.0); Immature Granulocyte Absolute 0.02 K/mm3 (0.00-0.031); Immature Granulocyte Percent A 0.4 % (0-0.5); Lymphocytes Absolute Auto 1.01 K/mm3 (0.9-3.2); Lymphocytes Percent Auto 22.7 % (18.3-44.2); Mean Corpuscular HGB Conc 32.8 g/dl (32-36); Mean Corpuscular Volume 100.7 fl (80-100); Mean Platelet Volume 9.6 fl (7.4-10.4); Monocytes Absolute Auto 0.5 K/mm3 (0.1-0.6); Monocytes Percent Auto 11.2 % (2.6-8.5); Neutrophils Absolute Auto 2.8 K/mm3 (1.3-6.7); Neutrophils Percent Auto 63.7 % (45.5-73.1); Platelet Count Result 181 k/mm3 (150-375); Red Cell Distribution Width 12.6 % (11.5-14.5); White Blood Count 4.5 K/mm3 (4.5-10.0)
[2024-09-07 12:00] LABS: Add Urine Microscopic? YES; Appearance Urine Clear (Clear); Bacteria Urine None Seen /hpf; Bilirubin Urine Negative (Negative); Blood Urine Negative (Negative); Color Urine Yellow (Yellow); Glucose Urine UA Negative (Negative); Ketones Urine Negative (Negative); Leukocyte Esterase Ur Trace LEU/UL (Negative); Nitrate Urine Negative (Negative); Non Pathogenic Casts 0-2; Protein Urine Negative (Negative); RBC Urine 0-2 /hpf (0-2); Squamous Epithelial Cell Urine Occasional /hpf (Few); Urobilinogen Urine 0.2 mg/dL (<2.0); WBC Urine 0-5 /hpf (0-3); pH Urine 5.5 (5.0-9.0)
[2024-09-07 12:02] LABS: Alanine Aminotransferase 16 U/L (6-50); Albumin Level 4.1 g/dL (3.5-5.1); Alkaline Phosphatase 82 U/L (38-126); Anion Gap 6 mmol/L (4-12); Aspartate Amino Transferase 25 U/L (17-59); Bilirubin,Total 0.6 mg/dL (0.2-1.3); Blood Urea Nitrogen 14 mg/dL (9-20); Calcium 9.3 mg/dL (8.4-10.2); Carbon Dioxide 30 mmol/L (22-30); Chloride 107 mmol/L (98-107); Cholesterol 105 mg/dL (0-200); Estimated Glomerular Filt Rate > 60; Glucose 102 mg/dL (65-110); HDL Direct 38 mg/dL; Potassium 3.9 mmol/L (3.4-5.0); Sodium 143 mmol/L (137-145); Triglycerides 132 mg/dL (<150)
[2024-09-07 12:04] LABS: Prothrombin Time 13.6 Seconds (11.1-14.7)
[2024-09-07 12:11] LABS: NT Pro B Type Natriuretic Pept 121 pg/mL (19.9-100)
[2024-09-07 12:13] LABS: LDL Cholesterol Direct 38 mg/dL
[2024-09-07 12:32] LABS: Free T4 Free Thyroxine 1.06 ng/dL (0.78-2.19)
[2024-09-07 12:33] LABS: Total Triiodothyronine (T3) 1.75 NG/ML (0.82-1.58)
== END 2024-09-07 11:14 | disposition home or self-care (01) ==
PROVIDERS: PCP Internal Medicine; Visit Provider Internal Medicine Cardiovascular Disease
DX: I49.5 Sick sinus syndrome (principal); R60.0 Localized edema; R73.03 Prediabetes; R00.1 Bradycardia, unspecified; E78.5 Hyperlipidemia, unspecified; E66.9 Obesity, unspecified; Z13.6 Encounter for screening for cardiovascular disorders
CPT/HCPCS: 36415; 80053; 80061; 81001; 83880; 84439; 84443; 84480; 85025; 85610